=== PATIENT | male | born 1955 | race Caucasian/White ===

== ENCOUNTER 2023-03-30 12:10 | Inpatient (IN) | payer MEDICARE, MEDICAID, SELFPAY ==
[2023-03-30] VITALS (14 sets, daily range): BP systolic 118–167; BP diastolic 64–91; PULSE 85–121; RESP 18–39; TEMP 36.1–38.1; O2SAT 93–100
--- NOTE | ~2023-03-30 | XR_ITS ---
Portable chest x-ray Comparison: 04/01/2023 Clinical History: Aspiration Findings: NG tube in satisfactory position. Questionable minimal bibasilar haziness. No pleural effus ion or pneumothorax. Cardiomediastinal silhouette is stable. Bones and soft tissues are unremarkable . Impression: Questionable minimal bibasilar haziness, nonspecific. NG tube in place. Reviewed, dictated and finalized at location M. Impression: Questionable minimal bibasilar haziness, nonspecific. NG tube in place.
--- NOTE | ~2023-03-30 | XR_ITS ---
EXAM: XR abdomen/kub 1V DATE: 03/31/2023 20:07 HISTORY: Vomitting . COMPARISON: CT abdomen pelvis 03/30/2023. FINDINGS: Clear lung bases. Normal bowel gas pattern. No organomegaly. No abnormal abdominal calcifi cation. Lumbar degenerative disc disease. Mild right hip osteoarthritis. Partially visualized left hi p hardware. IMPRESSION: No radiographic evidence of obstruction or ileus. Reviewed, dictated and finalized at location K.
--- NOTE | ~2023-03-30 | XR_ITS ---
Portable chest x-ray Comparison: 03/31/2023 Clinical History: Aspiration Findings: There is mild haziness in the bilateral lung bases, nonspecific. No pneumothorax. Stable c alcified left apical granuloma. Cardiomediastinal silhouette is stable. Bones and soft tissues are u nremarkable. Impression: Nonspecific bibasilar haziness. Correlate for infection, pulmonary edema, atelectasis. Reviewed, dictated and finalized at location . Impression: Nonspecific bibasilar haziness. Correlate for infection, pulmonary edema, atele ctasis.
--- NOTE | ~2023-03-30 | XR_ITS ---
EXAM: XR hip LT 2V w AP pelvis DATE: 03/30/2023 14:42 HISTORY: fall, LIMITED ROM, PT NOT COHERENT . COMPARISON: CT abdomen pelvis 03/30/2023. FINDINGS: Normal mineralization. Uncomplicated left hip arthroplasty with a large femoral component extending to the distal femur. Stable lateral tilt of the acetabular component. Surgical clips over t he left inguinal canal. No fracture or dislocation. No lytic or blastic lesion. Lumbar degenerative d isc disease. Mild right hip osteoarthritis. Heterotopic ossification versus old bone fragment medial to the proximal femur. No erosion or periosteal change. Soft tissues within normal limits. IMPRESSION: No acute osseous finding in the pelvis or left hip. No radiographic evidence of hardware- related complication. Reviewed, dictated and finalized at location K. IMPRESSION: No acute osseous finding in the pelvis or left hip. No radiographic evidence of hardware-related complication.
--- NOTE | ~2023-03-30 | XR_ITS ---
EXAM: XR shoulder LT min 2V DATE: 03/30/2023 14:41 HISTORY: fall, UNKNOWN POINT OF PAIN, PT NOT COHERENT . COMPARISON: None available. FINDINGS: Normal mineralization. No fracture or dislocation. No lytic or blastic lesion. Moderate de generative change at the AC joint. Mild degenerative change at the glenohumeral joint. No erosion or periosteal change. Soft tissues within normal limits. IMPRESSION: No acute osseous finding in the left shoulder. Reviewed, dictated and finalized at location K.
--- NOTE | ~2023-03-30 | XR_ITS ---
Portable chest x-ray Comparison: 03/30/2023 Clinical History: Dyspnea Findings: Calcified left upper lobe granuloma noted. Lungs are otherwise clear. Cardiomediastinal s ilhouette is stable. Bones and soft tissues are unremarkable. Impression: No significant abnormality seen. Reviewed, dictated and finalized at [facility]. Impression: No significant abnormality seen.
--- NOTE | ~2023-03-30 | XR_ITS ---
EXAMINATION: XR chest 1V portable Exam Date/Time: 03/31/2023 19:55 CDT HISTORY: Vomitting with BIPAPO mask in place. Comparison: 03/31/2023 at 9:03 AM. RESULT: Lines, tubes, and devices: None. Lungs and pleura: Clear. Cardiomediastinal silhouette: Stable. Other: No acute osseous or upper abdominal finding. IMPRESSION: No acute cardiopulmonary process. Reviewed, dictated and finalized at location K.
--- NOTE | ~2023-03-30 | CT_ITS ---
EXAMINATION: CT abdomen pelvis wo con DATE: 03/30/2023 14:24 INDICATION: Urinary tract infection. Fell 2 nights ago. Not feeling well. TECHNIQUE: Computed tomography (CT) of the abdomen and pelvis was performed without intravenous contr ast. Automated exposure control and iterative reconstruction technique were employed. Exam dose: 997 .86 mGy-cm total exam DLP. COMPARISON: None. FINDINGS: The lung bases are clear. Normal heart size. No pericardial or pleural effusion. There are calcified hepatic and splenic granulomas consistent with old granulomatous disease. The liver, spleen, pancreas and adrenal glands are unremarkable on this limited noncontrast examinati on. Cholelithiasis. No pericholecystic fluid or fat stranding. No bile duct or pancreatic ductal dilatati on. No renal mass lesion is evident on this limited noncontrast examination. No urinary tract calculus or hydroureteronephrosis is detected. There is considerable streak artifact in the pelvic area from left hip replacement. The urinary bladd er appears essentially unremarkable. There is prominent prostate enlargement and calcification. There is atherosclerotic calcification but normal caliber of the abdominal aorta. No intraperitoneal or retroperitoneal or pelvic mass lesion or adenopathy or ascites is detected. There is a prominent amount of fecal material in the colon but no bowel obstruction, bowel wall thick ening, pneumatosis or intraperitoneal free air. Normal appendix. No evidence of appendicitis. Left hip replacement. No suspicious osteolytic or osteoblastic lesions are noted. IMPRESSION: Cholelithiasis Normal appendix Left hip replacement Reviewed, dictated and finalized at Location A. Reviewed, dictated and finalized at location L.
--- NOTE | ~2023-03-30 | CT_ITS ---
Clinical Indication: Dyspnea CT Scan of the Chest with Contrast: Technique: Contiguous sections were acquired throughout the chest after intravenous administration of 100 cc of Omnipaque 350. Dose reduction technique was used on this scan by utilizing automated expos ure control and iterative reconstruction technique. The dose-length product (DLP) was 466.17 mGy-cm. Findings: There is no evidence of any significant mediastinal, hilar or axillary lymphadenopathy. No central pu lmonary embolus seen. Motion artifact limits evaluation for small distal pulmonary emboli. There is n o evidence of aortic dissection or aneurysm. There is no evidence of pleural or pericardial effusion. The lungs are clear, aside from calcified left upper lobe granuloma. Images through the upper abdomen reveal no abnormalities. 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 Impression: No evidence of pulmonary embolus, aortic dissection, or aortic aneurysm. No significant pulmonary abnormality. Reviewed, dictated and finalized at [facility]. Impression: No evidence of pulmonary embolus, aortic dissection, or aortic aneurysm. No significant pulmonary abnormality.
--- NOTE | ~2023-03-30 | XR_ITS ---
EXAM: XR shoulder LT min 2V, XR humerus LT DATE: 03/31/2023 19:49 (accession [id number]), 03/31/2023 18:49 (accession [id number]) HISTORY: left shoulder pain . COMPARISON: None available. FINDINGS: Moderate degenerative change at the AC joint. No fracture or dislocation. Calcified left u pper lung granuloma. Mild degenerative change in the left elbow joint. IMPRESSION: No acute osseous finding in the left shoulder or humerus. Reviewed, dictated and finalized at location K. IMPRESSION: No acute osseous finding in the left shoulder or humerus.
--- NOTE | ~2023-03-30 | CT_ITS ---
EXAMINATION: CT chest abdomen pelvis wo con DATE: 04/02/2023 18:05 INDICATION: Bacteremia. Hypoxia. TECHNIQUE: Computed tomography (CT) of the chest, abdomen, and pelvis was performed without intraveno us contrast. Automated exposure control and iterative reconstruction technique were employed. The dos e-length product was 975.70 mGy-cm. COMPARISON: Chest CT 03/31/2023, CT abdomen and pelvis 03/30/2023 FINDINGS: CHEST CT: There is smooth septal thickening in the lungs, consistent mild pulmonary edema. There are small pleu ral effusions. Calcified left lung nodules and calcified left hilar and mediastinal lymph nodes are c onsistent with old granulomatous disease. There is a 4 mm nodule in right middle lobe, likely benign. The heart size is normal. No pericardial effusion. There is mild thoracic spondylosis. ABDOMEN/PELVIS CT: Calcifications in the liver and spleen are consistent with old granulomatous disease. There is a gall stone in the gallbladder, which is normal in size. The pancreas, adrenal glands, and kidneys are norm al. There is an umbilical hernia containing fat. There is trace pelvic ascites. There are bilateral i nguinal hernias containing fat. The bladder is decompressed by a Kc catheter. The prostate is mode rately enlarged. There are no dilated loops of bowel. The appendix is not visualized. There are no pa thologically enlarged lymph nodes. There is a left hip arthroplasty. There is moderate lumbar spondyl osis. IMPRESSION: 1. Mild pulmonary edema. 2. Small pleural effusions. Reviewed, dictated and finalized at location E.
--- NOTE | ~2023-03-30 | CT_ITS ---
EXAMINATION: CT cervical spine wo con DATE: 03/30/2023 14:22 INDICATION: fall TECHNIQUE: Computed tomography (CT) of the cervical spine was performed without intravenous contrast. Automated exposure control and iterative reconstruction technique were employed. The dose-length pro duct was 272.90 mGy-cm. COMPARISON: None. FINDINGS: Mild motion artifact. Vertebral Body Alignment: Intact. Craniocervical and atlantoaxial alignment: Moderate degenerative change. Alignment intact. Osseous structures/fracture: No evidence of a lytic or blastic process in the visualized spine. No e vidence of acute fracture. Cervical soft tissues: The paraspinal soft tissues planes are maintained. Degenerative changes: Degenerative changes, without severe neural foraminal or central canal narrowin g. IMPRESSION: No acute fracture or traumatic malalignment in the cervical spine. Reviewed, dictated and finalized at location K.
--- NOTE | ~2023-03-30 | XR_ITS ---
EXAMINATION: [id number]_[id number]_CR DATE: 04/02/2023 09:58 INDICATION: Nasogastric tube placement TECHNIQUE: Supine AP view of the abdomen and pelvis was obtained. COMPARISON: 03/31/2023 FINDINGS: Nasogastric tube tip in proximal side port in the body of the stomach. Moderate amount stool scattere d throughout the colon. No dilated gas-filled loops of bowel to suggest obstruction. Mild bibasilar a telectasis. Bipolar type left hip hemiarthroplasty. IMPRESSION: 1. Nasogastric tube in the stomach. Reviewed, dictated and finalized at location A.
--- NOTE | ~2023-03-30 | XR_ITS ---
EXAMINATION: [id number]_CR Exam Date/Time: 03/31/2023 22:05 CDT HISTORY: ng placement Comparison: X-ray chest and x-ray abdomen, same date. RESULT: Lines, tubes, and devices: NG tube, tip and side port project over the stomach. Lungs and pleura: Clear. Cardiothymic silhouette: Stable. Other: No acute osseous or upper abdominal finding. IMPRESSION: NG tube, in good position. Reviewed, dictated and finalized at location K. IMPRESSION: NG tube, in good position.
--- NOTE | ~2023-03-30 | CT_ITS ---
EXAMINATION: CT brain wo con DATE: 03/30/2023 14:22 INDICATION: fall . TECHNIQUE: Computed tomography (CT) of the head was performed without intravenous contrast. The mA wa s adjusted according to patient size. Iterative reconstruction technique was employed. The dose-lengt h product was 605.33 mGy-cm. COMPARISON: None. FINDINGS: No acute intracranial hemorrhage or extra-axial fluid collection. No hydrocephalus, mass, or herniation. No acute ischemic infarct. Unremarkable dural venous sinus attenuation. No acute osseous abnormality. The aerated spaces are clear. IMPRESSION: No acute intracranial process. Reviewed, dictated and finalized at location K.
--- NOTE | ~2023-03-30 | XR_ITS ---
EXAMINATION: XR chest 1V Exam Date/Time: 03/30/2023 14:20 CDT HISTORY: TRANSCIENT ALTERATION OF AWARENESS, FALL Comparison: 08/14/2014. RESULT: Lines, tubes, and devices: None. Lungs and pleura: Granulomatous calcifications, otherwise clear. Cardiomediastinal silhouette: Stable. Other: No acute osseous or upper abdominal finding. IMPRESSION: No acute cardiopulmonary process. Reviewed, dictated and finalized at location K.
--- NOTE | 2023-03-30 12:20 | ECG_ITS ---
Measurements Intervals [place] Rate: 100 P: 56 FL: 169 QRS: -17 QRSD: 115 T: 81 QT: 348 QTc: 450 Interpretive Statements SINUS TACHYCARDIA LOW QRS VOLTAGE IN PRECORDIAL LEADS [QRS DEFLECTION < 1.0 mV IN CHEST LEADS] SEPTAL MYOCARDIAL INFARCTION , OF INDETERMINATE AGE [40+ ms Q WAVE IN V1/V2] ABNORMAL ECG NO PREVIOUS ECG AVAILABLE FOR COMPARISON Electronically Signed On 03-30-2023 15:15:25 CDT by Satya Medina M.D.
[2023-03-30 12:45] LABS: Hematocrit 45.7 % (42.0-52.0); Hemoglobin 14.9 g/dL (14.0-18.0); Mean Corpuscular HGB Conc 32.6 g/dl (32-36); Mean Corpuscular Hemoglobin 28.7 pg (26-34); Mean Corpuscular Volume 87.9 fl (80-100); Mean Platelet Volume 10.6 fl (7.4-10.4); Platelet Count Result 212 k/mm3 (150-375); Red Cell Distribution Width 12.7 % (11.5-14.5); White Blood Count 15.7 K/mm3 (4.5-10.0)
[2023-03-30 12:59] LABS: Alanine Aminotransferase 39 U/L (6-50); Albumin Level 3.8 g/dL (3.5-5.1); Alkaline Phosphatase 235 U/L (38-126); Anion Gap 16 mmol/L (8-16); Aspartate Amino Transferase 26 U/L (17-59); Bilirubin,Total 1.8 mg/dL (0.2-1.3); Blood Urea Nitrogen 28 mg/dL (9-20); Calcium 9.1 mg/dL (8.4-10.2); Carbon Dioxide 27 mmol/L (22-30); Chloride 87 mmol/L (98-107); Estimated CRCL calculation 43 ml/min; Estimated Glomerular Filt Rate 47; Glucose 609 mg/dL (65-110); Potassium 3.7 mmol/L (3.4-5.0); Sodium 130 mmol/L (137-145)
[2023-03-30 13:03] LABS: Band Neutrophils Percent 11 % (0-6); Lymphocytes Absolute Manual 0.31 K/mm3 (1.1-4.5); Lymphocytes Percent Manual 2 % (18-44); Monocytes Absolute Manual 1.09 K/mm3 (0.1-0.90); Monocytes Percent Manual 7 % (3-9); Neutrophils Absolute Manual 14.28 K/mm3 (1.3-6.7); Neutrophils Percent Manual 80 % (46-73); Platelet Estimate Adequate (Adequate); Schistocytes None Seen (NORMAL); Total Cells Counted 100
[2023-03-30] MEDS: SODIUM CHLORIDE 0.9% IV 1,000 ML 999 ML IV CONT (13:03)
[2023-03-30 13:12] LABS: INR 1.4; Partial Thromboplastin Time 34.3 SECONDS (22.3-36.8)
[2023-03-30 13:12] LABS: Alveolar/Arterial O2 Gradient 39.9 mmHg; Base Excess ABG 3.2 mEq/l (+/-2.0); Carboxyhemoglobin 2.6 % THb (0-2.0); Fractional Inspired Oxygen 21 %; HCO3 ABG 29.5 mEq/l (22.0-26.0); Methemoglobin ABG 0.1 %THb (0-1.5); Oxygen Content ABG 17.5 %vol (16.0-22.0); PCO2 ABG 51.2 mmHg (35.0-45.0); PO2 FiO2 Ratio Arterial Blood 2.31 %; Reduced Hemoglobin 13.9 %THb (0-5.0); pH ABG 7.378 (7.350-7.450)
[2023-03-30 13:14] LABS: Oxyhemoglobin 83.4 % THb (90.0-100.0)
[2023-03-30 13:15] LABS: Device ROOM AIR; Modified Allen's Test Pass; Oxygen Saturation ABG 82.9 % (95.0-100.0); PO2 ABG 48.5 mmHg (80.0-100.0)
--- NOTE | 2023-03-30 13:20 | ED.FALL ---
HPI - Fall General Chief Complaint: Fall Stated Complaint: fall Time Seen by Provider: 03/30/23 12:44 Source: patient and family (daughter, ) Limitations: no limitations History of Present Illness HPI Narrative: Patient is a 67-year-old male present to the emergency department accompanied by family for a fall. Patient was found down on the ground at home by family at 3AM moaning and unsure how long he had been there but no more than a few hours. Patient was mildly confused and had to be helped up. Patient did not improve much throughout the day prompting evaluation. Yesterday the patient was complaining of feeling ill with generalized weakness and nausea. Patient admits to dysuria and mild dyspnea. Patient denies recent illness, hospitalization, abdominal pain, urinary incontinence, diarrhea, melena, headache, neck stiffness, leg swelling, rash, new or changed medications, alcohol use, illicit drug use, vomiting, cough, hematuria, numbness, focal weakness, sore throat, nasal congestion, vision changes, difficulty swallowing. Patient denies history of diabetes. Admits to COPD on breathing treatments every 6 hours at home. Denies sick contacts. Admits to pain in his left shoulder and left hip after the fall with pain worse when utilizing the left hip and left shoulder. Family states the patient had a recent bug bite to the left arm then he rubbed tobacco on as a home remedy that appeared to resolve the wound. Patient has had poor PO intake for the past day. Related Data Home Medications Medication Instructions Recorded Confirmed alprazolam 2 mg tablet (Xanax) 2 mg PO BID 03/30/23 03/30/23 Allergies Allergy/AdvReac Type Severity Reaction Status Date / Time nkda Allergy Mild Uncoded 10/14/10 22:41 Review of Systems Review of Systems: A 10 system review of systems was completed on the patient and is negative except for what is stated in the HPI. Nursing and ancillary documentation was reviewed. [facility] Past Medical History Medical History (Updated 03/31/23 @ 15:13 by Keo Saldana APRN) Tobacco use disorder, continuous Family History Family History Other Alcohol abuse by father Social History Social History Smoking packs per day: 1 Smoking cigarettes per day: 20.0 Smoking status: Current every day smoker Tobacco type: cigarettes Alcohol intake: never Lack of Transportation: No Lack of Food: Never True Current Housing: I Have Housing Concerned About Future Housing: No Difficulty Paying Gas/Electric Bills: No Difficulty Paying for Meds: No Currently Unemployed: No Education: High School Diploma/GED Difficulty w/ Childcare or Family Care: No Spiritual care concerns: No Comments At time of signature, I have reviewed and agree with nursing past medical, surgical, social and family history unless otherwise noted. Please see the nursing chart for further information. There is no relevant family history pertinent to the presenting complaint. Exam Narrative: CONST: Mild acute distress. Tachypneic. Following commands. HENMT: Head is normocephalic and atraumatic. Dry mucous membranes. No posterior oropharynx erythema. EYES: No conjunctival icterus, injection, or pallor. PERRL. No gaze deviation or nystagmus. NECK: No meningeal signs. Neck is supple. RESP: Able to speak in full sentences. Tachypneic. No accessory muscle usage for ventilation. Scant end expiratory wheeze diffusely with a prolonged expiratory phase. Scant rhonchi diffusely. No rales. CARDIO: Tachycardic rate. Regular rhythm. 2+ DP and radial pulses bilaterally. No JVD. No murmur. GI: Nondistended. No tenderness to palpation. Soft. : No CVA tenderness to palpation. SKIN: No rashes. Small well healed approximately 0.5 cm in diameter scab to the left posterior upper arm without crepitus or erythema or tenderness to palp
[2023-03-30 13:21] LABS: Appearance Urine Clear (Clear); Bacteria Urine 4+ /hpf; Bilirubin Urine Negative (Negative); Blood Urine 1+ (Negative); Color Urine Yellow (Yellow); Glucose Urine UA 3+ mg/dL (Negative); Ketones Urine Negative (Negative); Leukocyte Esterase Ur Trace LEU/UL (Negative); Nitrate Urine Positive (Negative); Non Pathogenic Casts 0-2; Protein Urine Negative (Negative); Specific Grav Ur 1.028 (1.001-1.035); Squamous Epithelial Cell Urine None seen /hpf (Few); WBC Urine 21-50 /hpf; pH Urine 5.5 (5.0-9.0)
[2023-03-30 13:23] LABS: Add Urine Microscopic? YES
[2023-03-30 13:33] LABS: Influenza A QL RT-PCR Negative (Negative); Influenza B QL RT-PCR Negative (Negative); SARS-CoV-2 RNA PCR Negative (Negative)
[2023-03-30 14:12] LABS: Lactic Acid Reflex 3.2 mmol/L (0.7-2.0)
[2023-03-30 14:16] LABS: D Dimer 2.73 ug/mL (<0.48)
[2023-03-30 14:23] LABS: Acetaminophen < 10 ug/mL (10-30); Ethanol < 10 mg/dL (<10); Salicylate 1.1 mg/dL (2-20)
[2023-03-30] MEDS: ACETAMINOPHEN 500 MG TABLET 1000 MG PO (14:40)
[2023-03-30] MEDS: ALBUTEROL SULFATE NEB 2.5 MG/3 ML INH INHALATION (14:40)
[2023-03-30] MEDS: IPRATROPIUM BR 0.02% INH SOLN 0.5 MG/2.5 ML VIAL INHALATION (14:40)
[2023-03-30 14:42] LABS: Troponin I < 0.012 ng/mL (0.000-0.034)
[2023-03-30 14:54] LABS: Lipase 18 U/L (23-300)
[2023-03-30 15:21] LABS: CRP 41.5 mg/dL (<1.0)
[2023-03-30 15:39] LABS: Creatine Kinase 44 U/L (55-170)
[2023-03-30 15:47] LABS: Thyroid Stimulating Hormone Reflex 0.834 uIU/mL (0.465-4.68)
[2023-03-30 16:59] LABS: Reflex Lactic Acid Yes or No Add Lactic
[2023-03-30 17:05] LABS: Glucose Point of Care 403 mg/dl (65-105)
[2023-03-30 18:07] LABS: Lactic Acid 1.5 mmol/L (0.7-2.0)
--- NOTE | 2023-03-30 19:34 | ADMGEN ---
This patient, Alex Amezquita, was admitted to IMU Room 211-01 on 03/30/23 at 1850. Patient/family oriented to hospital policies and general routines including ID bracelet, bed and alarms, visiting hours, pain management, procedures, bathroom and other care routines, personal items, smoking policy, room service/diet, and visiting hours. Information on how to activate the Rapid Response Team has been discussed. Patient/Family are encouraged to report perceived risks to care and to ask questions if they do not understand what they are told or what they should do.
[2023-03-30] MEDS: HALOPERIDOL LACTATE 5 MG/ML VIAL 2.5 MG IM (20:25)
[2023-03-30] MEDS: LACTATED RINGERS 1,000 ML 125 ML IV CONT (21:08)
--- NOTE | 2023-03-30 22:44 | PM.IMHP ---
H&P: HPI History of Present Illness Date/Time: 03/30/23 22:44 Chief Complaint: Patient was brought to ER for evaluation due to confusion and difficulty walking Narrative: Our patient is a pleasantly confused gentleman who was not acting his usual self at home, was tired and fatigued and yelling at his family members. He continue to eat a lot of sugary products for the last couple of days. He is a chronic smoker and smokes on a regular basis. Family got concerned and brought him to the ER for evaluation. Workup was done which showed UTI and dehydration with a glucose level of 609!. His lactic acid level was also elevated. Patient was diagnosed with sepsis with UTI and was treated with the aggressive IV hydration in the ER and IV antibiotics. I saw and evaluated the patient on the floor and he was still confused, combative and trying to get out of bed. I ordered Haldol x1 dose IM to calm him down. I spoke with the at the bedside in detail. He is being admitted for IV hydration, IV antibiotics and medical management. Review of Systems Review of Systems: Unable to obtain review of system as patient is pleasantly confused and not cooperative ROS unobtainable: Yes unobtainable due to mental status PMFSH Past Medical History Medical History (Updated 03/30/23 @ 23:00 by Chung Hirsch MD) Tobacco use disorder, continuous Family History Family History Other Alcohol abuse by father Social History Social History Smoking packs per day: 1 Smoking cigarettes per day: 20.0 Smoking status: Current every day smoker Tobacco type: cigarettes Alcohol intake: never Lack of Transportation: No Lack of Food: Never True Current Housing: I Have Housing Concerned About Future Housing: No Difficulty Paying Gas/Electric Bills: No Difficulty Paying for Meds: No Currently Unemployed: No Education: High School Diploma/GED Difficulty w/ Childcare or Family Care: No Spiritual care concerns: No Meds Home Medications and Allergies Home Medications Medication Instructions Recorded Confirmed Type alprazolam 2 mg tablet (Xanax) 2 mg PO BID 03/30/23 03/30/23 History Allergies Allergy/AdvReac Type Severity Reaction Status Date / Time nkda Allergy Mild Uncoded 10/14/10 22:41 Vital Signs Vital Signs - 24 hr 03/30/23 12:13 03/30/23 14:41 03/30/23 15:05 Temperature 36.1 C L Pulse Rate 102 H 115 H 121 H Respiratory Rate 18 26 H 28 H Blood Pressure 128/77 Pulse Oximetry 93 Oxygen Delivery Room Air 03/30/23 13:01 03/30/23 13:47 03/30/23 15:00 Temperature Pulse Rate 103 H 102 H 119 H Respiratory Rate 28 H 32 H 31 H Blood Pressure 127/78 158/83 H 167/91 H Pulse Oximetry 100 98 100 Oxygen Delivery 03/30/23 15:03 03/30/23 16:08 03/30/23 16:45 Temperature Pulse Rate 121 H 117 H 115 H Respiratory Rate 39 H 36 H 36 H Blood Pressure 165/90 H 141/75 H 145/78 H Pulse Oximetry 100 100 96 Oxygen Delivery 03/30/23 17:57 03/30/23 19:25 03/30/23 20:00 Temperature 38.1 C H Pulse Rate 114 H 113 H 113 H Respiratory Rate 24 H 22 H 22 H Blood Pressure 118/64 119/71 Pulse Oximetry 100 98 98 Oxygen Delivery Room Air Exam Narrative: PHYSICAL EXAMINATION: Vital signs: Please see the chart. General physical exam: Patient is confused, combative and trying to get out of bed Head/eyes: Atraumatic, EOMI, PERRLA. ENT: +dry mucous membranes, nasal passages clear. Neck: Supple, full range of motion, trachea midline. CVS: S1 + S2 + 0, regular rate and rhythm, no murmurs Respiratory: Bilaterally fair air entry in both lung tom, mild B/L crackles, symmetric chest expansion, no distress Abdomen: Soft, non-tender, bowel sounds +ve, no organomegaly Extremities: No clubbing, no cyanosis, no edema, no calf tenderness Musculoskeletal: Moves all, adequate range of motion,
[2023-03-30 23:11] LABS: Glucose Point of Care 236 mg/dl (65-105)
[2023-03-31] VITALS (23 sets, daily range): BP systolic 112–138; BP diastolic 63–75; PULSE 85–127; RESP 20–45; TEMP 35.9–36.5; O2SAT 93–100
--- NOTE | 2023-03-31 | ECHO_ITS ---
Patient Info Name: Alex Amezquita Age: 67 years : 1955 Gender: Male Ht: 68 in Wt: 167 lbs BSA: 1.92 m2 HR: 78 bpm BP: 134 / 71 mmHg Heart Rhythm: Tachycardia Technical Quality: Fair Exam Date: 03/31/2023 11:55 AM Exam Location: [facility] Pulmonary Exam Room: [facility] Patient Status: Inpatient Admit Date: 03/30/2023 Staff Ordering Physician: Keo Saldana APRN Webbing Supervisor: Hope Carrasco RDCS Attending Provider: Sg Reese MD Referring Physician: Les REIS; Exam Type: CA echo doppler color flow Study Info Indications - sepsis dyspnea Complete two-dimensional, color flow and Doppler transthoracic echocardiogram is performed. Summary 1. Complete two-dimensional, color flow and Doppler transthoracic echocardiogram is performed. 2. Left ventricular chamber dimension is normal. 3. Left ventricular systolic function is normal, estimated at 55-60%. 4. There is no increased left ventricular wall thickness. 5. The left ventricular diastolic function is grade I diastolic dysfunction. 6. Left atrial chamber dimension is mildly enlarged. 7. There is mild tricuspid valve regurgitation. 8. Mild pulmonary hypertension, estimated pulmonary arterial systolic pressure is 36 mmHg. 9. There is mild pulmonic regurgitation. Left Ventricle Left ventricular chamber dimension is normal. Left ventricular systolic function is normal, estimated at 55-60%. There is no increased left ventricular wall thickness. The left ventricular diastolic function is grade I diastolic dysfunction. Right Ventricle Right ventricular chamber dimension is normal. Right ventricular systolic function is normal. Left Atria Left atrial chamber dimension is mildly enlarged. Right Atria Right atrial chamber dimension is normal. Atrial Septum Intact interatrial septum visualized by color flow imaging. Aortic Valve The aortic valve is trileaflet. There is mild aortic valve sclerosis. There is no aortic valve stenosis. There is trace aortic valve regurgitation. Pulmonic Valve The pulmonic valve is normal. There is no pulmonic valve stenosis. There is mild pulmonic regurgitation. Mitral Valve The mitral valve has normal leaflets. There is no mitral valve stenosis. There is trace mitral valve regurgitation. Tricuspid Valve The tricuspid valve leaflets are normal. There is no significant tricuspid valve stenosis. There is mild tricuspid valve regurgitation. Mild pulmonary hypertension, estimated pulmonary arterial systolic pressure is 36 mmHg. Pericardium/Pleural The pericardium appears normal. There is no pericardial effusion. Inferior Vena Cava Dilated inferior vena cava with >50% collapse upon inspiration consistent with elevated right atrial pressure, 10 mmHg. Aorta The aortic root size at the sinus of Valsalva is normal. Left Ventricular Outflow Tract Name Value Normal LVOT 2D LVOT Diameter 2.1 cm LVOT Doppler LVOT Peak Gradient 5 mmHg LVOT Mean Gradient 3 mmHg LVOT VTI 17 cm LVOT VTI/AV VTI Ratio 1.0 LVOT Stroke Volume 56 ml
[2023-03-31] MEDS: NICOTINE (*PBKC) 21 MG PATCH 1 PATCH TRANSDERM ×2 (03:10→08:35)
[2023-03-31] MEDS: FUROSEMIDE INJ 40 MG/4 ML VIAL 20 MG IV PUSH (04:14)
[2023-03-31 05:07] LABS: Anion Gap 1 mmol/L (8-16); Blood Urea Nitrogen 24 mg/dL (9-20); Calcium 7.9 mg/dL (8.4-10.2); Carbon Dioxide 29 mmol/L (22-30); Chloride 98 mmol/L (98-107); Estimated CRCL calculation 69 ml/min; Estimated Glomerular Filt Rate > 60; Glucose 181 mg/dL (65-110); Phosphorus 2.2 mg/dL (2.5-4.5); Potassium 3.7 mmol/L (3.4-5.0); Sodium 128 mmol/L (137-145)
[2023-03-31 05:30] LABS: Hemoglobin A1C 10.6 % (<5.7)
[2023-03-31] MEDS: ALPRAZolam (*CRX) 0.5 MG TABLET 2 MG PO (06:27)
[2023-03-31 07:59] LABS: Glucose Point of Care 205 mg/dl (65-105)
[2023-03-31 08:48] LABS: Glucose Point of Care 169 mg/dl (65-105)
[2023-03-31 09:24] LABS: Alveolar/Arterial O2 Gradient 119.8 mmHg; Base Excess ABG 2.9 mEq/l (+/-2.0); Fractional Inspired Oxygen 30 %; HCO3 ABG 26.9 mEq/l (22.0-26.0); Oxygen Content ABG 15.9 %vol (16.0-22.0); PCO2 ABG 39.3 mmHg (35.0-45.0); Total Hemoglobin 13.1 g/dL (12.0-18.0); pH ABG 7.454 (7.350-7.450)
[2023-03-31 09:30] LABS: PO2 ABG 47.9 mmHg (80.0-100.0)
[2023-03-31 09:31] LABS: Oxygen Saturation ABG 85.7 % (95.0-100.0); Oxyhemoglobin 86.6 % THb (90.0-100.0)
[2023-03-31 09:32] LABS: Site Drawn LEFT RADIAL
[2023-03-31 09:33] LABS: Device NASAL CANNULA; Liters per Minute 2.5 LPM; Modified Allen's Test Pass
--- NOTE | 2023-03-31 09:35 | PM.IMPN ---
Progress Note: A&P Assessment and Plan (1) Sepsis: Code(s): A41.9 - Sepsis, unspecified organism Status: Acute Assessment and Plan: Urinary tract infection identified as well as Gram-positive cocci in chains in 2 of 2 blood cultures. Awaiting species and sensitivity. (2) Altered mental status: Code(s): R41.82 - Altered mental status, unspecified Status: Acute Assessment and Plan: Patient is significantly encephalopathic has been combative with staff and yelling at family before coming to the emergency department. Uncertain if this is substance related or psychiatric related or related to sepsis. (3) Combative behavior: Code(s): R46.89 - Other symptoms and signs involving appearance and behavior Status: Acute Assessment and Plan: Patient received Haldol for combative behavior now appears to be significantly encephalopathic. (4) JG (acute kidney injury): Code(s): N17.9 - Acute kidney failure, unspecified Status: Acute Assessment and Plan: Initial creatinine 1.5 has improved to 0.9 with IV fluids. (5) Hyponatremia: Code(s): E87.1 - Hypo-osmolality and hyponatremia Status: Acute Assessment and Plan: Sodium is down to 128, initial level 130. No prior records. (6) UTI (urinary tract infection): Code(s): N39.0 - Urinary tract infection, site not specified Status: Acute Assessment and Plan: Patient on ceftriaxone, dose increased to 2g Q12h. (7) Bacteremia: Code(s): R78.81 - Bacteremia Status: Acute Assessment and Plan: Ceftriaxone 2 g every 12 hours and vancomycin with goals higher end of trough. (8) Tobacco use disorder, continuous: Code(s): F17.209 - Nicotine dependence, unspecified, with unspecified nicotine-induced disorders Status: Acute Assessment and Plan: Nicotine patch applied. Plan Patient on BiPAP Mine Laborer has evaluated patient Hold Xanax Sitter at bedside Fluids infusing Will consult nephrology for hyponatremia Antibiotic coverage escalated upon identification of Gram-positive cocci in the blood Awaiting further species identification and sensitivities Awaiting urine culture Kc catheter in place Diet: Heart healthy if awake otherwise NPO VTE prophylaxis: SCDs and Lovenox Medication reconciliation: Complete Time Spent With Patient Time with patient: Greater than 35 minutes Subjective Date/time seen: 03/31/23 08:40 Interval history: Chief Complaint: Patient was brought to ER for evaluation due to confusion and difficulty walking Narrative: Our patient is a pleasantly confused gentleman who was not acting his usual self at home, was tired and fatigued and yelling at his family members.? He continue to eat a lot of sugary products for the last couple of days.? He is a chronic smoker and smokes on a regular basis.? Family got concerned and brought him to the ER for evaluation.? Workup was done which showed UTI and dehydration with a glucose level of 609!.? His lactic acid level was also elevated.? Patient was diagnosed with sepsis with UTI and was treated with the aggressive IV hydration in the ER and IV antibiotics. I saw and evaluated the patient on the floor and he was still confused, combative and trying to get out of bed.? I ordered Haldol x1 dose IM to calm him down.? I spoke with the at the bedside in detail. He is being admitted for IV hydration, IV antibiotics and medical management. ? 03/31: Patient is still altered level of consciousness possibly due to Haldol or encephalopathy. Noted tachypnea with respiratory rate around 40. Patient had adventitious lung sounds. Concerned he may be an aspiration risk and discussed case with ICU attending Dr. Ralph who evaluated patient and thought he could stay in IMU, start steroids and bronchodilators. Patient unable to participate in HPI/ROS. Review of Systems Review of Systems: ROS unobtainable: Yes
[2023-03-31 09:47] LABS: Ammonia 11 umol/L (9-30)
[2023-03-31 09:53] LABS: Procalcitonin 6.3 ng/mL
[2023-03-31] MEDS: IPRATROPIUM BR 0.02% INH SOLN 0.5 MG/2.5 ML VIAL INHALATION ×3 (10:16→19:50)
[2023-03-31] MEDS: ALBUTEROL SULFATE NEB 2.5 MG/3 ML INH INHALATION ×3 (10:16→19:50)
[2023-03-31] MEDS: methylPREDNISolone SOD SUCC 125 MG VIAL IV PUSH (10:28)
[2023-03-31 10:43] LABS: Thyroid Stimulating Hormone Reflex 0.236 uIU/mL (0.465-4.68)
[2023-03-31 11:45] LABS: Glucose Point of Care 194 mg/dl (65-105)
[2023-03-31 11:46] LABS: Free T4 Free Thyroxine Reflex 1.85 ng/dL (0.78-2.19)
[2023-03-31] MEDS: cefTRIAXone 2 GM/NS 100 ML 2 GM/100 ML BAG IVPB ×2 (12:43→20:42)
[2023-03-31 12:59] LABS: Total Triiodothyronine (T3) 0.67 NG/ML (0.97-1.69)
[2023-03-31 13:26] LABS: Alveolar/Arterial O2 Gradient 151.4 mmHg; Fractional Inspired Oxygen 40 %; HCO3 ABG 29.5 mEq/l (22.0-26.0); Oxygen Content ABG 18.6 %vol (16.0-22.0); Oxygen Saturation ABG 96.8 % (95.0-100.0); Oxyhemoglobin 96.2 % THb (90.0-100.0); PCO2 ABG 42.8 mmHg (35.0-45.0); PO2 ABG 84.6 mmHg (80.0-100.0); PO2 FiO2 Ratio Arterial Blood 2.12 %; Total Hemoglobin 13.7 g/dL (12.0-18.0); pH ABG 7.456 (7.350-7.450)
[2023-03-31 13:29] LABS: Modified Allen's Test Pass; Site Drawn RIGHT RADIAL
[2023-03-31 13:30] LABS: Device NON-INVASIVE VENT
[2023-03-31 13:33] LABS: Non-Invasive Expiratory Pressure 7 CMH2O; Non-Invasive Inspiratory Pressure 14 CMH2O; Non-Invasive Vent Rate 18 /MIN
[2023-03-31] MEDS: SODIUM CHLORIDE 0.9% IV 1,000 ML 125 ML IV CONT (15:09)
--- NOTE | 2023-03-31 17:42 | PC.NURSE ---
On 03/31/23, the student, Claudia LYNN [facility], provided care and completed [facility] documentation on this patient. I have reviewed the student's documentation and agree with the findings.
[2023-03-31 19:42] LABS: Creatinine Urine 70.9 mg/dL; Total Protein Urine Random 39 mg/dL; Ur Ttl Prot Creatinine Ratio 0.55 mg/mg (0-0.20); Urea Random Urine 858 MG/DL
[2023-03-31 19:53] LABS: Sodium Urine Random 13 meq/L
[2023-03-31] MEDS: ONDANSETRON INJ 4 MG/2 ML VIAL IV PUSH (20:06)
[2023-03-31] MEDS: KETOROLAC 15 MG/ML VIAL (*BKC) IV PUSH (20:56)
[2023-03-31] MEDS: OLANZapine 5 MG, WATER, STERILE FOR INJECTION 2.1 ML IM (23:01)
[2023-04-01] VITALS (31 sets, daily range): BP systolic 114–148; BP diastolic 61–87; PULSE 76–136; RESP 22–41; TEMP 36.4–37.4; O2SAT 91–100
[2023-04-01] MEDS: PROMETHAZINE HCL 25 MG/ML AMPUL 12.5 MG IM (00:32)
[2023-04-01] MEDS: SODIUM CHLORIDE 0.9% IV 1,000 ML 125 ML IV CONT ×4 (00:37→20:57)
[2023-04-01] MEDS: ALBUTEROL SULFATE NEB 2.5 MG/3 ML INH INHALATION ×6 (00:59→20:00)
[2023-04-01] MEDS: IPRATROPIUM BR 0.02% INH SOLN 0.5 MG/2.5 ML VIAL INHALATION ×6 (00:59→20:00)
[2023-04-01] MEDS: LORazepam INJ (*CRX) 2 MG/ML VIAL 0.5 MG IV PUSH ×4 (01:30→20:21)
[2023-04-01 05:57] LABS: Hematocrit 41.3 % (42.0-52.0); Hemoglobin 13.5 g/dL (14.0-18.0); Mean Corpuscular HGB Conc 32.7 g/dl (32-36); Mean Corpuscular Hemoglobin 28.2 pg (26-34); Mean Corpuscular Volume 86.4 fl (80-100); Mean Platelet Volume 10.5 fl (7.4-10.4); Platelet Count Result 247 k/mm3 (150-375); Red Blood Count 4.78 M/mm3 (4.6-6.20); Red Cell Distribution Width 12.9 % (11.5-14.5); White Blood Count 16.4 K/mm3 (4.5-10.0)
[2023-04-01 06:17] LABS: Band Neutrophils Percent 6 % (0-6); Lymphocytes Absolute Manual 0.82 K/mm3 (1.1-4.5); Lymphocytes Percent Manual 5 % (18-44); Monocytes Absolute Manual 0.32 K/mm3 (0.1-0.90); Monocytes Percent Manual 2 % (3-9); Neutrophils Absolute Manual 15.25 K/mm3 (1.3-6.7); Neutrophils Percent Manual 87 % (46-73); Platelet Estimate Adequate (Adequate); Schistocytes None Seen (NORMAL); Total Cells Counted 100
[2023-04-01 06:23] LABS: Anion Gap 9 mmol/L (8-16); Blood Urea Nitrogen 40 mg/dL (9-20); Calcium 8.2 mg/dL (8.4-10.2); Carbon Dioxide 28 mmol/L (22-30); Chloride 98 mmol/L (98-107); Creatine Kinase 124 U/L (55-170); Estimated CRCL calculation 88 ml/min; Estimated Glomerular Filt Rate > 60; Glucose 252 mg/dL (65-110); Magnesium 2.4 mg/dL (1.6-2.3); Phosphorus 2.6 mg/dL (2.5-4.5); Potassium 3.9 mmol/L (3.4-5.0); Sodium 135 mmol/L (137-145)
[2023-04-01 06:39] LABS: Procalcitonin 5.1 ng/mL
[2023-04-01 07:13] LABS: CRP 41.9 mg/dL (<1.0)
--- NOTE | 2023-04-01 09:09 | ECG_ITS ---
Measurements Intervals [place] Rate: 110 P: 64 VA: 168 QRS: -16 QRSD: 114 T: 76 QT: 335 QTc: 453 Interpretive Statements SINUS TACHYCARDIA LOW QRS VOLTAGE BORDERLINE ECG COMPARED TO ECG 03/30/2023 12:29:32 THERE IS SOME BASELINE MOTION ARTIFACT OTHERWISE NO SUBSTANTIAL DIFFERENCE Electronically Signed On 04-01-2023 14:34:09 CDT by Heath Croinn M.D.
[2023-04-01] MEDS: ENOXAPARIN 40 MG/0.4 ML SYRINGE SUB-Q (09:20)
[2023-04-01] MEDS: NICOTINE (*PBKC) 21 MG PATCH 1 PATCH TRANSDERM (09:21)
[2023-04-01] MEDS: cefTRIAXone 2 GM/NS 100 ML 2 GM/100 ML BAG IVPB (09:21)
--- NOTE | 2023-04-01 09:34 | PM.IMPN ---
Progress Note: A&P Assessment and Plan (1) Sepsis: Code(s): A41.9 - Sepsis, unspecified organism Status: Acute Assessment and Plan: Urinary tract infection identified as well as Gram-positive cocci in clusters in 2 of 2 blood cultures. Awaiting species and sensitivity. 04/01: Staph aureus identified in urine, likely the same in blood, susceptibilities to follow up (2) Altered mental status: Code(s): R41.82 - Altered mental status, unspecified Status: Acute Assessment and Plan: Patient is significantly encephalopathic has been combative with staff and yelling at family when decision to admit from the emergency department. Uncertain if this is substance related or psychiatric related or related to sepsis. 04/01: Patient may be exhibiting withdrawal symptoms from chronic use of benzodiazepines. (3) Combative behavior: Code(s): R46.89 - Other symptoms and signs involving appearance and behavior Status: Acute Assessment and Plan: Patient received Haldol for combative behavior now appears to be significantly encephalopathic. 04/01: Overnight patient received Zyprexa for combative behavior. (4) JG (acute kidney injury): Code(s): N17.9 - Acute kidney failure, unspecified Status: Acute Assessment and Plan: Initial creatinine 1.5 has improved to 0.9 with IV fluids. 04/01: BUN 40, Cr 0.7 (5) Hyponatremia: Code(s): E87.1 - Hypo-osmolality and hyponatremia Status: Acute Assessment and Plan: Sodium is down to 128, initial level 130. No prior records. 04/01: Sodium 135, improved due to treatment of underlying infection (6) UTI (urinary tract infection): Code(s): N39.0 - Urinary tract infection, site not specified Status: Acute Assessment and Plan: Patient on ceftriaxone, dose increased to 2g Q12h and patient on vancomycin IV 04/01: Staph aureus on culture, sensitivities pending (7) Bacteremia: Code(s): R78.81 - Bacteremia Status: Acute Assessment and Plan: Ceftriaxone 2 g every 12 hours and vancomycin with goals higher end of trough. (8) Tobacco use disorder, continuous: Code(s): F17.209 - Nicotine dependence, unspecified, with unspecified nicotine-induced disorders Status: Acute Assessment and Plan: Nicotine patch applied. Plan Patient possibly exhibiting withdrawal symptoms from Xanax. Ativan 0.5 mg IV q.6 p.r.n. for agitation or withdrawal symptoms. Hospitalist attending, Dr. Reese, evaluated patient in conjunction with my care Repeat chest x-ray due to likely aspiration overnight Soft wrist restraints to keep patient from pulling medical devices IV Fluids infusing Hyponatremia improving with treatment of underlying infection Antibiotic coverage escalated upon identification of Gram-positive cocci in the blood Awaiting further species identification and sensitivities Staph aureus in urine culture, awaiting sensitivities Repeat blood cultures drawn today Kc catheter in place Diet: NPO VTE prophylaxis: SCDs and Lovenox Medication reconciliation: Complete Time Spent With Patient Time with patient: Greater than 35 minutes Subjective Date/time seen: 04/01/23 09:34 Interval history: Chief Complaint: Patient was brought to ER for evaluation due to confusion and difficulty walking Narrative: Our patient is a pleasantly confused gentleman who was not acting his usual self at home, was tired and fatigued and yelling at his family members.? He continue to eat a lot of sugary products for the last couple of days.? He is a chronic smoker and smokes on a regular basis.? Family got concerned and brought him to the ER for evaluation.? Workup was done which showed UTI and dehydration with a glucose level of 609!.? His lactic acid level was also elevated.? Patient was diagnosed with sepsis with UTI and was treated with the aggressive IV hydration in the ER and IV antibiotics. I saw and evaluated
[2023-04-01 09:37] LABS: Lipase 19 U/L (23-300)
[2023-04-01 10:44] LABS: Troponin I < 0.012 ng/mL (0.000-0.034)
[2023-04-01] MEDS: PANTOPRAZOLE SODIUM IV 40 MG VIAL IV PUSH ×2 (10:47→20:30)
[2023-04-01] MEDS: methylPREDNISolone SOD SUCC 40 MG VIAL IV PUSH ×3 (11:29→23:16)
[2023-04-01] MEDS: METOCLOPRAMIDE HCL INJ 10 MG/2 ML VIAL IV PUSH ×3 (11:29→23:16)
[2023-04-01] MEDS: INSULIN ASPART (*BKC) 100 UNITS/ML SUB-Q ×2 (11:36→18:42)
[2023-04-01 11:40] LABS: Glucose Point of Care 222 mg/dl (65-105)
--- NOTE | 2023-04-01 12:35 | PC.NURSE ---
Pt family is refusing to keep pt NPO at this time this nurse explained to them that it is not safe to give him anything due to leathery, pt will not stay awake with out simulation of any kind and over night N/V the daughter refused to comply at this time, this nurse called Ben [employer] to assist with explaining the order and the why the need is to keep pt NPO and the daughter voiced she will give him what every she wants to at this time this nurse will make floor staff aware of the order to not give pt anything here and if the family so wishes to do so they have to bring it in from outside per [employer] order.
--- NOTE | 2023-04-01 13:06 | PC.NURSE ---
This nurse spoke to Ghada is the next of kin in regards to the NPO status and she is agreeable to what was explained and doesnt want his life placed at risk and will speak to the daughter
[2023-04-01] MEDS: KETOROLAC 15 MG/ML VIAL (*BKC) IV PUSH (14:57)
[2023-04-01 17:32] LABS: Glucose Point of Care 251 mg/dl (65-105)
--- NOTE | 2023-04-01 18:55 | PC.NURSE ---
This nurse cont to explain to family members and Ghada pt is NPO and they cont to ask if he can have something to drink due to pt is asking for it this nurse cont to educate on risk.
[2023-04-01 20:12] LABS: Glucose Point of Care 228 mg/dl (65-105)
[2023-04-01 22:13] LABS: Vancomycin Trough 8.2 ug/mL (10.0-20.0)
[2023-04-01] MEDS: OLANZapine 10 MG INJ VIAL 5 MG IM (23:16)
[2023-04-02] VITALS (29 sets, daily range): BP systolic 116–181; BP diastolic 74–101; PULSE 77–102; RESP 12–32; TEMP 36.4–37.2; O2SAT 94–100; BMI 24.6
[2023-04-02] MEDS: IPRATROPIUM BR 0.02% INH SOLN 0.5 MG/2.5 ML VIAL INHALATION ×5 (00:05→15:54)
[2023-04-02] MEDS: ALBUTEROL SULFATE NEB 2.5 MG/3 ML INH INHALATION ×5 (00:05→15:54)
[2023-04-02 01:31] LABS: Glucose Point of Care 327 mg/dl (65-105)
[2023-04-02] MEDS: INSULIN ASPART (*BKC) 100 UNITS/ML SUB-Q ×6 (01:46→23:23)
[2023-04-02 05:52] LABS: Basophils Percent Auto 0.2 % (0.2-1.2); Hematocrit 35.8 % (42.0-52.0); Hemoglobin 11.6 g/dL (14.0-18.0); Immature Granulocyte Absolute 0.07 K/mm3 (0.00-0.031); Immature Granulocyte Percent A 0.6 % (0-0.5); Lymphocytes Absolute Auto 0.79 K/mm3 (0.9-3.2); Lymphocytes Percent Auto 6.2 % (18.3-44.2); Mean Corpuscular HGB Conc 32.4 g/dl (32-36); Mean Corpuscular Hemoglobin 28.2 pg (26-34); Mean Corpuscular Volume 87.1 fl (80-100); Mean Platelet Volume 10.9 fl (7.4-10.4); Monocytes Absolute Auto 0.5 K/mm3 (0.1-0.6); Monocytes Percent Auto 4.1 % (2.6-8.5); Neutrophils Absolute Auto 11.2 K/mm3 (1.3-6.7); Neutrophils Percent Auto 88.9 % (45.5-73.1); Platelet Count Result 229 k/mm3 (150-375); Red Blood Count 4.11 M/mm3 (4.6-6.20); Red Cell Distribution Width 13.1 % (11.5-14.5); White Blood Count 12.7 K/mm3 (4.5-10.0)
[2023-04-02 06:04] LABS: Magnesium 2.5 mg/dL (1.6-2.3)
[2023-04-02 06:05] LABS: Anion Gap 5 mmol/L (8-16); Blood Urea Nitrogen 42 mg/dL (9-20); Calcium 7.8 mg/dL (8.4-10.2); Carbon Dioxide 30 mmol/L (22-30); Chloride 104 mmol/L (98-107); Estimated CRCL calculation 78 ml/min; Estimated Glomerular Filt Rate > 60; Glucose 232 mg/dL (65-110); Phosphorus 2.8 mg/dL (2.5-4.5); Potassium 3.1 mmol/L (3.4-5.0); Sodium 139 mmol/L (137-145)
[2023-04-02 06:16] LABS: Procalcitonin 2.5 ng/mL
[2023-04-02 06:18] LABS: CRP 18.5 mg/dL (<1.0)
[2023-04-02] MEDS: METOCLOPRAMIDE HCL INJ 10 MG/2 ML VIAL IV PUSH ×4 (06:18→23:22)
[2023-04-02] MEDS: methylPREDNISolone SOD SUCC 40 MG VIAL IV PUSH ×2 (06:18→13:15)
[2023-04-02] MEDS: SODIUM CHLORIDE 0.9% IV 1,000 ML 125 ML IV CONT (06:21)
[2023-04-02] MEDS: ONDANSETRON INJ 4 MG/2 ML VIAL IV PUSH (08:31)
[2023-04-02] MEDS: ENOXAPARIN 40 MG/0.4 ML SYRINGE SUB-Q (08:33)
[2023-04-02] MEDS: PANTOPRAZOLE SODIUM IV 40 MG VIAL IV PUSH ×2 (08:34→20:29)
[2023-04-02] MEDS: NICOTINE (*PBKC) 21 MG PATCH 1 PATCH TRANSDERM (08:36)
[2023-04-02] MEDS: LORazepam INJ (*CRX) 2 MG/ML VIAL 0.5 MG IV PUSH ×2 (08:37→13:29)
[2023-04-02] MEDS: metroNIDAZOLE 500 MG/ISO 100ML 500 MG/100 ML BAG 100 MG IVPB ×3 (08:45→20:29)
--- NOTE | 2023-04-02 08:51 | PCSTNOTE ---
RN reported patient has been vomitting; just presented Zofran. Hold off swallow evaluation until later this morning or afternoon.
--- NOTE | 2023-04-02 09:30 | PM.IMPN ---
Progress Note: A&P Assessment and Plan (1) Sepsis: Code(s): A41.9 - Sepsis, unspecified organism Status: Acute Assessment and Plan: Urinary tract infection identified as well as Gram-positive cocci in clusters in 2 of 2 blood cultures. Awaiting species and sensitivity. 04/01: Staph aureus identified in urine, likely the same in blood, susceptibilities to follow up 04/02: MRSA identified in blood and urine. Continue vancomycin. Add Flagyl due to aspiration yesterday. Repeat blood culture drawn yesterday is already positive for gram positive cocci in clusters in aerobic bottle. (2) Altered mental status: Code(s): R41.82 - Altered mental status, unspecified Status: Acute Assessment and Plan: Patient is significantly encephalopathic has been combative with staff and yelling at family when decision to admit from the emergency department. Uncertain if this is substance related or psychiatric related or related to sepsis. 04/01: Patient may be exhibiting withdrawal symptoms from chronic use of benzodiazepines. 04/02: patient again vomiting and agitated but will open eyes and is mostly oriented when consistently stimulated. (3) Combative behavior: Code(s): R46.89 - Other symptoms and signs involving appearance and behavior Status: Acute Assessment and Plan: Patient received Haldol for combative behavior now appears to be significantly encephalopathic. 04/01: Overnight patient received Zyprexa for combative behavior. 04/02: again received IM Zyprexa last night for combative behavior. Ordered Seroquel at night to start tonight. (4) JG (acute kidney injury): Code(s): N17.9 - Acute kidney failure, unspecified Status: Acute Assessment and Plan: Initial creatinine 1.5 has improved to 0.9 with IV fluids. 04/01: BUN 40, Cr 0.7 04/02: BUN 42, Cr 0.8 (5) Hyponatremia: Code(s): E87.1 - Hypo-osmolality and hyponatremia Status: Acute Assessment and Plan: Sodium is down to 128, initial level 130. No prior records. 04/01: Sodium 135, improved due to treatment of underlying infection 04/02: Na 139 (6) UTI (urinary tract infection): Code(s): N39.0 - Urinary tract infection, site not specified Status: Acute Assessment and Plan: Patient on ceftriaxone, dose increased to 2g Q12h and patient on vancomycin IV 04/01: Staph aureus on culture, sensitivities pending 04/02: Kc remains in place, vancomycin on board (7) Bacteremia: Code(s): R78.81 - Bacteremia Status: Acute Assessment and Plan: MRSA--Vancomycin ordered (8) Tobacco use disorder, continuous: Code(s): F17.209 - Nicotine dependence, unspecified, with unspecified nicotine-induced disorders Status: Acute Assessment and Plan: Nicotine patch applied. Plan Patient possibly exhibiting withdrawal symptoms from Xanax. Ativan 0.5 mg IV q.6 p.r.n. for agitation or withdrawal symptoms. Seroquel added Hospitalist attending, Dr. Reese, evaluated patient in conjunction with my care Repeat chest x-ray due to likely aspiration this morning Soft wrist restraints to keep patient from pulling medical devices IV Fluids infusing MRSA in blood and urine Repeat blood cultures 04/01 positive again, will redraw tomorrow Kc catheter in place Diet: NPO, NG replaced VTE prophylaxis: SCDs and Lovenox Medication reconciliation: Complete Time Spent With Patient Time with patient: Greater than 35 minutes Subjective Date/time seen: 04/02/23 11:30 Interval history: Overnight patient received Zyprexa for severe agitation. This morning patient recurrent episodes of emesis with concern that he may further aspirated. NG tube had to be replaced patient treated with Compazine and repeat chest x-ray and KUB ordered. NG appropriately placed. Patient started on Flagyl due to likely aspiration yesterday. [facility] notified us that repeat blood cultures drawn on 04/01 are still growing
[2023-04-02] MEDS: PROCHLORPERAZINE EDISYLATE 10 MG/2 ML VIAL IV PUSH (09:37)
[2023-04-02 12:39] LABS: Osmolality, Urine 771 mOsm/kg (50-1200)
[2023-04-02] MEDS: POTASSIUM CHLORIDE INJ 40 MEQ in SODIUM CHLORIDE 0.9% IV 500 ML 130 MEQ IVPB ×2 (13:15→19:09)
[2023-04-02 13:19] LABS: Glucose Point of Care 267 mg/dl (65-105)
--- NOTE | 2023-04-02 13:35 | PCSTNOTE ---
BSE will not be attempted this date as patient received NG tube for feedings today. Will attempt BSE tomorrow.
--- NOTE | 2023-04-02 15:20 | ECG_ITS ---
Measurements Intervals [place] Rate: 82 P: 48 NV: 204 QRS: -2 QRSD: 115 T: 60 QT: 375 QTc: 440 Interpretive Statements SINUS RHYTHM INTRAVENTRICULAR CONDUCTION DELAY BASELINE WANDER- II, V4-V6 BORDERLINE ECG COMPARED TO ECG 04/01/2023 10:54:58 SINUS RHYTHM NOW PRESENT Electronically Signed On 04-02-2023 15:48:52 CDT by Harjit Trujillo D.O.
--- NOTE | 2023-04-02 15:21 | WPDCNINT ---
Assessment and Plan Assessment and plan (1) Sepsis: Code(s): A41.9 - Sepsis, unspecified organism Status: Acute Assessment and Plan: Patient presented with signs of sepsis and his blood cultures are growing Gram-positive cocci 03/30-urine culture -MRSA 03/30 blood cultures x 2 - MRSA 04/01 repeat blood cultures x 0-[id number]-[id number] cocci in clusters 03/[address] and abdomen were unremarkable except cholelithiasis and did not show any source of infection UA was suggestive of UTI Procalcitonin 2.5 WBC has been improving Since then patient has had vomiting and suspected to have aspiration Patient is currently on vancomycin will be continue. Patient was also started on Flagyl and cefepime to add Gram-negative coverage Obtain repeat CT scan to evaluate for pneumonia Initial echo negative for any evidence of infective endocarditis Echo 03/31 Summary ? 1. Complete two-dimensional, color flow and Doppler transthoracic echocardiogram is performed. ? 2. Left ventricular chamber dimension is normal. ? 3. Left ventricular systolic function is normal, estimated at 55-60%. ? 4. There is no increased left ventricular wall thickness. ? 5. The left ventricular diastolic function is grade I diastolic dysfunction. ? 6. Left atrial chamber dimension is mildly enlarged. ? 7. There is mild tricuspid valve regurgitation. ? 8. Mild pulmonary hypertension, estimated pulmonary arterial systolic pressure is 36 mmHg. ? 9. There is mild pulmonic regurgitation. (2) Bacteremia: Code(s): R78.81 - Bacteremia Status: Acute Assessment and Plan: See above (3) Tobacco use disorder, continuous: Code(s): F17.209 - Nicotine dependence, unspecified, with unspecified nicotine-induced disorders Status: Acute Assessment and Plan: Patient currently has nicotine patch on Patient currently not in a condition for counseling (4) Combative behavior: Code(s): R46.89 - Other symptoms and signs involving appearance and behavior Status: Acute Assessment and Plan: Patient has been uncooperative and combative with staff on the floor. He has pulled out his NG tube multiple times. He has been receiving multiple doses of Haldol Zyprexa and Ativan. He does not have history of alcohol abuse as per his . Patient continues to state that he would like to leave against medical advice and go home but his was at bedside does not want him to be discharged and would not take him home. This is likely multifactorial secondary to patient's behavior with component of delirium secondary to medications, hyperglycemia and steroids. Will discontinue benzodiazepine, decrease steroid May need to use Precedex infusion if patient is agitated He appears much more calm at this time and will transfer to ICU and closely monitor. Continue seroquel at night (5) Delirium: Code(s): R41.0 - Disorientation, unspecified Status: Acute Assessment and Plan: See above (6) Diabetes mellitus: Code(s): E11.9 - Type 2 diabetes mellitus without complications Status: Acute Assessment and Plan: Patient presented with elevated blood sugar in the range of 400s. He has HbA1c was 10.6 This suggest patient has unknown knows diabetes mellitus Blood sugars elevated inpatient I will decrease steroids Increase sliding scale to q.4 hours and high dose. Will add subcutaneous Lantus depending on blood sugars after these interventions (7) COPD exacerbation: Code(s): J44.1 - Chronic obstructive pulmonary disease with (acute) exacerbation Status: Acute Assessment and Plan: Patient has heavy history of smoking the course he had significant wheezing and increased work of breathing Patient likely has undiagnosed COPD Patient was started on methylprednisolone and bronchodilators which will be continued I will decrease the dose of Solu-Medrol (8) Nausea & vomiting: Code(s): R11.2 - Nausea with vomiting, u
--- NOTE | 2023-04-02 15:25 | PC.NURSE ---
Patient received from [facility]-. Bedside report received from Catalina CUEVA. Dr. Ralph at bedside evaluating patient.
[2023-04-02 15:27] LABS: Base Excess ABG 3.6 mEq/l (+/-2.0); Fractional Inspired Oxygen 60 %; HCO3 ABG 27.7 mEq/l (22.0-26.0); Oxygen Content ABG 18.9 %vol (16.0-22.0); Oxyhemoglobin 95.9 % THb (90.0-100.0); PO2 ABG 86.8 mmHg (80.0-100.0); PO2 FiO2 Ratio Arterial Blood 1.45 %; pH ABG 7.458 (7.350-7.450)
[2023-04-02 15:28] LABS: Modified Allen's Test Pass; Site Drawn RIGHT RADIAL
[2023-04-02 15:29] LABS: Device HIGH FLOW NASAL CANN
[2023-04-02] MEDS: POTASSIUM CHLORIDE 20 MEQ PACKET (FOR LIQUID) 40 MEQ PO (16:01)
[2023-04-02] MEDS: CEFEPIME 1 GM/NS 50 ML 1 GM/50 ML BAG IVPB (16:02)
[2023-04-02 16:08] LABS: Glucose Point of Care 245 mg/dl (65-105)
[2023-04-02 16:34] LABS: NT Pro B Type Natriuretic Pept 988 pg/mL (19.9-100)
--- NOTE | 2023-04-02 17:32 | PC.NURSE ---
This patient, Alex Amezquita, was transferred to ICU on 04/02/23 at 1500. Personal belongings sent with patient. Report given to HAMMAD Mans[place] Appropriate documentation sent with patient.
[2023-04-02] MEDS: dexmedeTOMIDine 400 MCG/100 ML 400 MCG/100 ML BAG IV CONT (19:45)
[2023-04-02 20:41] LABS: Glucose Point of Care 205 mg/dl (65-105)
[2023-04-02] MEDS: FUROSEMIDE INJ 40 MG/4 ML VIAL 20 MG IV PUSH (21:05)
[2023-04-02 23:27] LABS: Glucose Point of Care 203 mg/dl (65-105)
[2023-04-03] VITALS (31 sets, daily range): BP systolic 108–155; BP diastolic 67–86; PULSE 60–103; RESP 21–34; TEMP 36.2–37.1; O2SAT 9–100
[2023-04-03] MEDS: metroNIDAZOLE 500 MG/ISO 100ML 500 MG/100 ML BAG 100 MG IVPB (03:13)
[2023-04-03] MEDS: CEFEPIME 1 GM/NS 50 ML 1 GM/50 ML BAG IVPB (03:23)
[2023-04-03 04:32] LABS: Basophils Percent Auto 0.3 % (0.2-1.2); Hematocrit 36.3 % (42.0-52.0); Hemoglobin 11.6 g/dL (14.0-18.0); Immature Granulocyte Absolute 0.19 K/mm3 (0.00-0.031); Immature Granulocyte Percent A 1.3 % (0-0.5); Lymphocytes Absolute Auto 0.79 K/mm3 (0.9-3.2); Lymphocytes Percent Auto 5.6 % (18.3-44.2); Mean Corpuscular Hemoglobin 28.2 pg (26-34); Mean Corpuscular Volume 88.3 fl (80-100); Mean Platelet Volume 10.8 fl (7.4-10.4); Neutrophils Absolute Auto 12.1 K/mm3 (1.3-6.7); Neutrophils Percent Auto 85.8 % (45.5-73.1); Platelet Count Result 225 k/mm3 (150-375); Red Blood Count 4.11 M/mm3 (4.6-6.20); Red Cell Distribution Width 13.2 % (11.5-14.5); White Blood Count 14.2 K/mm3 (4.5-10.0)
[2023-04-03 04:44] LABS: Anion Gap 1 mmol/L (8-16); Blood Urea Nitrogen 41 mg/dL (9-20); CRP 6.4 mg/dL (<1.0); Calcium 7.4 mg/dL (8.4-10.2); Carbon Dioxide 32 mmol/L (22-30); Chloride 107 mmol/L (98-107); Estimated CRCL calculation 101 ml/min; Estimated Glomerular Filt Rate > 60; Glucose 226 mg/dL (65-110); Magnesium 2.4 mg/dL (1.6-2.3); Potassium 4.1 mmol/L (3.4-5.0); Sodium 140 mmol/L (137-145)
[2023-04-03 04:53] LABS: Glucose Point of Care 241 mg/dl (65-105)
[2023-04-03] MEDS: INSULIN ASPART (*BKC) 100 UNITS/ML SUB-Q ×2 (04:53→08:33)
[2023-04-03] MEDS: METOCLOPRAMIDE HCL INJ 10 MG/2 ML VIAL IV PUSH ×2 (04:54→12:10)
[2023-04-03 05:12] LABS: Procalcitonin 1.1 ng/mL
--- NOTE | 2023-04-03 08:02 | WPDINTPN ---
Progress Note: A&P Assessment and Plan (1) Sepsis: Code(s): A41.9 - Sepsis, unspecified organism Status: Acute Assessment and Plan: Patient presented with signs of sepsis and his blood cultures are growing Gram-positive cocci 03/30-urine culture -MRSA 03/30 blood cultures x 2 - MRSA 04/01 repeat blood cultures x 0-Kyfp-joljhcfr cocci in clusters 03/[address] and abdomen were unremarkable except cholelithiasis and did not show any source of infection UA was suggestive of UTI Procalcitonin 2.5 WBC has been improving Since then patient has had vomiting and suspected to have aspiration Patient is currently on vancomycin will be continue. Patient was also started on Flagyl and cefepime to add Gram-negative coverage for aspiration pneumonia 04/03 CT scan did not show any evidence of pneumonia-DC Flagyl and cefepime. Continue vancomycin for MRSA pneumonia Initial echo negative for any evidence of infective endocarditis I will repeat blood cultures. Consult Cardiology to evaluate patient for TELLY Echo 03/31 Summary ? 1. Complete two-dimensional, color flow and Doppler transthoracic echocardiogram is performed. ? 2. Left ventricular chamber dimension is normal. ? 3. Left ventricular systolic function is normal, estimated at 55-60%. ? 4. There is no increased left ventricular wall thickness. ? 5. The left ventricular diastolic function is grade I diastolic dysfunction. ? 6. Left atrial chamber dimension is mildly enlarged. ? 7. There is mild tricuspid valve regurgitation. ? 8. Mild pulmonary hypertension, estimated pulmonary arterial systolic pressure is 36 mmHg. ? 9. There is mild pulmonic regurgitation. (2) Bacteremia: Code(s): R78.81 - Bacteremia Status: Acute Assessment and Plan: See above (3) Tobacco use disorder, continuous: Code(s): F17.209 - Nicotine dependence, unspecified, with unspecified nicotine-induced disorders Status: Acute Assessment and Plan: Patient currently has nicotine patch on Patient currently not in a condition for counseling (4) Combative behavior: Code(s): R46.89 - Other symptoms and signs involving appearance and behavior Status: Acute Assessment and Plan: Patient has been uncooperative and combative with staff on the floor. He has pulled out his NG tube multiple times. He has been receiving multiple doses of Haldol Zyprexa and Ativan. He does not have history of alcohol abuse as per his . Patient continues to state that he would like to leave against medical advice and go home but his was at bedside does not want him to be discharged and would not take him home. This is likely multifactorial secondary to patient's behavior with component of delirium secondary to medications, hyperglycemia and steroids. Patient now off of benzodiazepine, and steroids decreased Currently on precedex infusion which I will wean it off today to assess patient Continue seroquel at night once his swallowing cleared speech (5) Delirium: Code(s): R41.0 - Disorientation, unspecified Status: Acute Assessment and Plan: See above (6) Diabetes mellitus: Code(s): E11.9 - Type 2 diabetes mellitus without complications Status: Acute Assessment and Plan: Patient presented with elevated blood sugar in the range of 400s. He has HbA1c was 10.6 This suggest patient has undiagnosed diabetes mellitus Blood sugars elevated inpatient I have decreased steroids Continue sliding scale to q.4 hours and high dose. Add Lantus (7) COPD exacerbation: Code(s): J44.1 - Chronic obstructive pulmonary disease with (acute) exacerbation Status: Acute Assessment and Plan: Patient has heavy history of smoking the course he had significant wheezing and increased work of breathing Patient likely has undiagnosed COPD Patient was started on methylprednisolone and bronchodilators which will be continued (8) Nausea & vomiting: C
[2023-04-03] MEDS: ENOXAPARIN 40 MG/0.4 ML SYRINGE SUB-Q (08:33)
[2023-04-03] MEDS: INSULIN GLARGINE (*BKC) 100 UNITS/ML 20 UNITS SUB-Q (08:33)
[2023-04-03] MEDS: methylPREDNISolone SOD SUCC 40 MG VIAL IV PUSH (08:34)
[2023-04-03] MEDS: NICOTINE (*PBKC) 21 MG PATCH 1 PATCH TRANSDERM (08:34)
[2023-04-03] MEDS: PANTOPRAZOLE SODIUM IV 40 MG VIAL IV PUSH (08:34)
[2023-04-03 09:19] LABS: Glucose Point of Care 206 mg/dl (65-105)
--- NOTE | 2023-04-03 09:20 | PM.CNCAR ---
Assessment and Plan Assessment and plan (1) Bacteremia: Code(s): R78.81 - Bacteremia Status: Acute Assessment and Plan: MRSA in urine and blood. On antibiotics as per latin americ[place] studies professor. Discuss need for TELLY with patient and he refuses. Will ask him again on Wednesday to plan for TELLY with anesthesia on Wednesday. (2) UTI (urinary tract infection): Code(s): N39.0 - Urinary tract infection, site not specified Status: Acute (3) Sepsis: Code(s): A41.9 - Sepsis, unspecified organism Status: Acute (4) Hypertension: Code(s): I10 - Essential (primary) hypertension Status: Acute Assessment and Plan: Stable. History of Present Illness History of Present Illness Consult date/time: 04/03/23 09:20 Reason For Visit: Sepsis Narrative: 67 yr old man admitted with confusion, found to be septic with MRSA in urine and blood. He has a history of DM, hypertension, smoking, anxiety Reason for consult is TELLY to definitively r/o endocarditis. A transthoracic echo on 03/31/23 was negative for vegetation. Patient has no chest pain, sob currently. He is asking the nurse for water and states he has not received any, and is visibly upset about this. I discussed the need for TELLY that would be done on Wednesday since Wednesday is a holiday and we do not do TELLY over weekends. He states he does not want to have TELLY, and that he would rather go home. Review of Systems Constitutional: Constitutional: Reports as per HPI, Denies chills and Denies fever(s) Cardiovascular: Cardiovascular: Reports as per HPI and Denies chest pain Respiratory: Respiratory: Reports as per HPI and Denies dyspnea Gastrointestinal: Gastrointestinal: Reports as per HPI and Denies abdominal pain Genitourinary: Genitourinary: Reports as per HPI Musculoskeletal: Musculoskeletal: Reports as per HPI Neurologic: Reports as per HPI, Denies dizziness and Denies syncope [facility] Past Medical History Medical History (Updated 04/03/23 @ 08:09 by Cleve Ralph MD) Tobacco use disorder, continuous Family History Family History Other Alcohol abuse by father Social History Social History Smoking packs per day: 1 Smoking cigarettes per day: 20.0 Smoking status: Current every day smoker Tobacco type: cigarettes Alcohol intake: never Lack of Transportation: No Lack of Food: Never True Current Housing: I Have Housing Concerned About Future Housing: No Difficulty Paying Gas/Electric Bills: No Difficulty Paying for Meds: No Currently Unemployed: No Education: High School Diploma/GED Difficulty w/ Childcare or Family Care: No Spiritual care concerns: No Meds Home Medications and Allergies Home Medications Medication Instructions Recorded Confirmed Type alprazolam 2 mg tablet (Xanax) 2 mg PO BID 03/30/23 03/30/23 History Allergies Allergy/AdvReac Type Severity Reaction Status Date / Time nkda Allergy Mild Uncoded 10/14/10 22:41 Vital Signs Vital Signs - 24 hr 04/02/23 11:27 04/02/23 11:27 04/02/23 11:44 Temperature 98.2 F Pulse Rate 102 H 102 H 91 Respiratory Rate 20 12 Blood Pressure 158/88 H Pulse Oximetry 94 99 Oxygen Delivery High Flow Nasal Cannula Oxygen Flow Rate 6 04/02/23 11:59 04/02/23 15:55 04/02/23 15:55 Temperature Pulse Rate 97 85 86 Respiratory Rate 20 20 Blood Pressure Pulse Oximetry 95 Oxygen Delivery High Flow Nasal Cannula Oxygen Flow Rate 6 04/02/23 16:00 04/02/23 16:00 04/02/23 16:30 Temperature 97.7 F Pulse Rate 87 87 94 Respiratory Rate 29 H 32 H Blood Pressure 181/101 H 155/90 H Pulse Oximetry 97 99 Oxygen Delivery Oxygen Flow Rate 04/02/23 16:00 04/02/23 12:00 04/02/23 10:00 Temperature Pulse Rate 92 Respiratory Rate Blood Pressure Pulse Oximetry 99 94 Oxygen Delivery High
[2023-04-03 10:40] LABS: Vancomycin Trough 16.5 ug/mL (10.0-20.0)
[2023-04-03] MEDS: IPRATROPIUM BR 0.02% INH SOLN 0.5 MG/2.5 ML VIAL INHALATION (12:26)
[2023-04-03] MEDS: ALBUTEROL SULFATE NEB 2.5 MG/3 ML INH INHALATION (12:26)
--- NOTE | 2023-04-03 13:04 | PCSTNOTE ---
Bedside swallowing evaluation completed. Patient positioned upright in bed with head of bed elevated. Distractible and asking for water repeatedly. Partial cursory oral peripheral examination completed, results within functional limits. Trials of thin liquid by spoon, cup, and straw were given. Patient showed no signs of aspiration (e.g. shortness of breath, coughing, watering eyes). Applesauce was given by spoon, patient again showed no signs of aspiration but stated he did not like it and didn't want anymore. Patient refused to trial other food textures during evaluation. Recommendations: thin liquids and pureed consistency diet texture. Swallowing precaution recommendations placed in chart. Please note that silent aspiration cannot be ruled out at bedside and can be evaluated with a modified barium swallow study. No further speech therapy is recommended for this patient at this time. Thank you for the referral of this patient.
--- NOTE | 2023-04-03 13:04 | PC.NURSE ---
Multiple attempts made to preform hygiene on patient including Kc care, and oral hygiene. Patient has had a bowel movement in bed and is refusing RN to clean it up. Patient keeps requesting to be left alone and that he does not care that there is poop on him. RN has been trying to clean up patients BM since 0800 this AM. RN educated patient on the importance of hygiene especially in this area due to risk of skin breakdown and UTI from stool. Patient states he doesn't care . RN to continue to offer hygiene care to patient and to monitor. aware.
[2023-04-03 13:12] LABS: Glucose Point of Care 161 mg/dl (65-105)
[2023-04-03] MEDS: FUROSEMIDE INJ 40 MG/4 ML VIAL 20 MG IV PUSH (13:31)
--- NOTE | 2023-04-03 15:49 | PM.IMPN ---
Progress Note: A&P Assessment and Plan (1) Sepsis: Code(s): A41.9 - Sepsis, unspecified organism Status: Acute Assessment and Plan: Patient presented with signs of sepsis of tachycardia, leukocytosis, low grade fever, lactic acidosis and positive blood cultures. UA was suggestive of UTI. PCT 2.5. WBC 15.7K. CRP 41.5. 03/30 CT abd/pelvis was unremarkable except cholelithiasis and did not show any source of infection 03/30-urine culture -MRSA 03/30 blood cultures x 2 - MRSA 03/31 CTA chest - No PE and no adenopathy or lung findings. 04/01 repeat blood cultures x 8-[id number]-ganqsukw cocci in clusters 03/31 Echo showing EF 50-55% with Grade I diastolic dysfunction but no vegetations. 04/02 CT Ch/Abd/pelvis showing mild pulmonary edema. The patient has had vomiting and suspected to have aspiration PNA. Patient is currently on vancomycin will be continue. Patient was also started on Flagyl and cefepime to add Gram-negative coverage for aspiration pneumonia but stopped due to no evidence of PNA by CT. Will need TELLY to discover source. Repeat BCx. Appreciate informal waiter/waitress input. (2) Hypoxia: Code(s): R09.02 - Hypoxemia Status: Acute Assessment and Plan: 04/02 Patient has had worsening hypoxia since admission. He was on 10 L of oxygen by nasal cannula. Patient initially appeared to be in COPD exacerbation and was started on steroid and bronchodilator. Due to work of breathing he was initially on BiPAP but this was discontinued due to vomiting. Possibility of aspiration. Apparently patient was being given the soda by family members despite the fact that he was NPO 04/02 ABG 7.45/40/86/27 on FiO2 60%. BNP 988 CT scan was checked and showed pulmonary edema and pleural effusions. No evidence of pneumonia Discontinue antibiotics. Patient was given Lasix IV with good response Continue to wean oxygen Speech consulted for swallow evaluation (3) Combative behavior: Code(s): R46.89 - Other symptoms and signs involving appearance and behavior Status: Acute Assessment and Plan: Patient has been uncooperative and combative with staff on the floor. He has pulled out his NG tube multiple times. He has been receiving multiple doses of Haldol, Zyprexa and Ativan. He does not have history of alcohol abuse as per his . Patient continues to state that he would like to leave against medical advice but he is not felt competent to make that decision at this time. This is likely multifactorial secondary to patient's behavior with component of delirium secondary to medications, sepsis, hyperglycemia and steroids. Patient now off of benzodiazepine, and steroids decreased Was on precedex infusion but weaned off Continue seroquel at night once his swallowing cleared speech (4) Bacteremia: Code(s): R78.81 - Bacteremia Status: Acute Assessment and Plan: As above (5) Delirium: Code(s): R41.0 - Disorientation, unspecified Status: Acute Assessment and Plan: See above (6) Diabetes mellitus: Code(s): E11.9 - Type 2 diabetes mellitus without complications Status: Acute Assessment and Plan: Patient presented with elevated blood sugar in the range of 400s. HbA1c was 10.6 Patient has undiagnosed diabetes mellitus The patient's blood glucose was reviewed on 04/03 Glucose remains elevated but better Continue AccuCheks covering with sliding scale. Hypoglycemia protocol available as needed. Continue to monitor (7) COPD exacerbation: Code(s): J44.1 - Chronic obstructive pulmonary disease with (acute) exacerbation Status: Acute Assessment and Plan: Patient has heavy history of smoking. Consider COPD exacerbation contributing to his increased work of breathing Patient likely has undiagnosed COPD Patient was started on methylprednisolone and bronchodilators which will be continued (8) Nausea & vomiting: Code(s): R11.2 - Na
--- NOTE | 2023-04-03 16:26 | PC.NURSE ---
RN notified to patients room by bed alarms going off. Patient was on side of bed attempting to get out of bed stating he is leaving now . Patient has removed all his clothing, oxygen and some of his monitoring devices. Patient is very agitated at this time. Patient states that I feel much better now, I need to leave, you guys can't force me to stay here, I have kids at home that need me . Patient is angry and yelling at staff. Patient is demanding the doctor come out to see the patient now. Patient is now demanding this RN call all patients contacts to see if he can get a ride. MD updated and notified of patient behavior. MD to come out and see patient.
--- NOTE | 2023-04-04 16:03 | PM.DS ---
DS: Admitting Diagnosis Discharge Date 04/03/23 Admitting Diagnosis Confusion DS: Discharge Diagnosis Discharge Diagnosis (1) Sepsis: Code(s): A41.9 - Sepsis, unspecified organism Status: Acute (2) Hypoxia: Code(s): R09.02 - Hypoxemia Status: Acute (3) Combative behavior: Code(s): R46.89 - Other symptoms and signs involving appearance and behavior Status: Acute (4) Bacteremia: Code(s): R78.81 - Bacteremia Status: Acute (5) Delirium: Code(s): R41.0 - Disorientation, unspecified Status: Acute (6) Diabetes mellitus: Code(s): E11.9 - Type 2 diabetes mellitus without complications Status: Acute (7) COPD exacerbation: Code(s): J44.1 - Chronic obstructive pulmonary disease with (acute) exacerbation Status: Acute (8) Nausea & vomiting: Code(s): R11.2 - Nausea with vomiting, unspecified Status: Acute (9) Hypertension: Code(s): I10 - Essential (primary) hypertension Status: Acute (10) Dysphagia: Code(s): R13.10 - Dysphagia, unspecified Status: Acute (11) Tobacco use disorder, continuous: Code(s): F17.209 - Nicotine dependence, unspecified, with unspecified nicotine-induced disorders Status: Acute DS: Summary Hospital Course Reason for hospitalization: 67yo male with tobacco abuse here for confusion and found to have septicemia. Please see H&P for details. Hospital Course: Patient presented with signs of sepsis of tachycardia, leukocytosis, low grade fever, lactic acidosis, altered mental status and positive blood cultures. UA was suggestive of UTI. PCT 2.5. WBC 15.7K. CRP 41.5. CT abd/pelvis was unremarkable except cholelithiasis and did not show any source of infection. Urine culture growing MRSA. Blood cultures x 2 was MRSA positive. CTA chest was negative for PE and no adenopathy or lung findings. Repeat blood cultures agai showing MRSA. Echo showing EF 50-55% with Grade I diastolic dysfunction but no vegetations. CT Chest/Abd/pelvis showing mild pulmonary edema. The patient was vomiting and suspected to have aspiration PNA. Patient was on vancomycin and also started on Flagyl and cefepime. Plan for TELLY to discover source. Patient developed hypoxic respiratory failure. Patient initially appeared to be in COPD exacerbation and was started on steroid and bronchodilator.? Due to work of breathing he was initially on BiPAP but this was discontinued due to vomiting.? Possibility of aspiration.? Apparently patient was being given soda by family members despite the fact that he was NPO. Patient was uncooperative and combative with staff on the floor.? He had pulled out his NG tube multiple times.? He had been receiving multiple doses of Haldol, Zyprexa and Ativan.? He does not have history of alcohol abuse as per his .?He was on precedex infusion but this was weaned off. His confusion and agitation resolved. Patient presented with elevated blood sugar in the range of 400s.? HbA1c was 10.6. Patient has undiagnosed diabetes mellitus. Patient has heavy history of smoking. Suspected he had COPD exacerbation contributing to his increased work of breathing. Called back to the room late afternoon on 04/03/23. Patient was demanding to leave against AMA. He is oriented x4 now. Explained the risk of leaving AMA given the septicemia and his hypoxia (he was still on O2 requiring 8L). Explained that he would most likely if he left AMA. Multiple avenues of discussion were undertaken to try to convince patient to stay hospitalized but patient continued to refuse. RN obtained information from a dtr, Cadence, who mentioned that patient and patient's has hx of drug use (possibly meth). Patient lives with his daughter Ericka. Spoke with Ericka and explained the severity of the patient's condition and that he most likely wouldn't survive if he decided to leave AMA. With this information, consider the MRSA bacteremia may be
== END 2023-04-03 17:45 | disposition left against medical advice (07) | DRG 689 ==
LOC: ANHED 16:09 → ANHIMU 17:26 → ANHICU 04-02 15:15
PROVIDERS: Family Medicine; General Practice; Internal Medicine; Internal Medicine Nephrology; Nurse Practitioner; Admitting Provider Internal Medicine; Emergency Provider Student in an Organized Health Care Education/Training Program; PCP Emergency Medicine; Visit Provider Internal Medicine
DX: N39.0 Urinary tract infection, site not specified (principal); J96.91 Respiratory failure, unspecified with hypoxia; N17.9 Acute kidney failure, unspecified; E87.1 Hypo-osmolality and hyponatremia; J44.1 Chronic obstructive pulmonary disease with (acute) exacerbation; J81.1 Chronic pulmonary edema; E11.65 Type 2 diabetes mellitus with hyperglycemia; R13.10 Dysphagia, unspecified; B95.62 Methicillin resistant Staphylococcus aureus infection as the cause of diseases classified elsewhere; E86.0 Dehydration; F17.210 Nicotine dependence, cigarettes, uncomplicated; F10.10 Alcohol abuse, uncomplicated; F41.9 Anxiety disorder, unspecified; I10 Essential (primary) hypertension; K80.20 Calculus of gallbladder without cholecystitis without obstruction; M25.512 Pain in left shoulder; M25.552 Pain in left hip; M25.551 Pain in right hip; R11.10 Vomiting, unspecified; W19.XXXA Unspecified fall, initial encounter; Z20.822 Contact with and (suspected) exposure to COVID-19
CPT/HCPCS: 36415; 36600; 70450; 71045; 71250; 71275; 72125; 73030; 73060; 73502; 74018; 74176; 80048; 80053; 80202; 80307; 81001; 81050; 82140; 82375; 82533; 82550; 82570; 82805; 82948; 83036; 83050; 83605; 83690; 83735; 83880; 83930; 83935; 84100; 84145; 84156; 84300; 84439; 84443; 84480; 84484; 84540; 85025; 85380; 85610; 85730; 86140; 86850; 86900; 86901; 87040; 87077; 87081; 87086; 87088; 87186; 87636; 92610; 93005; 93306; 94002; 94003; 94640; 96361; 96365; 99285; A9270; C9113; J0692; J0696; J0780; J1630; J1650; J1815; J1836; J1885; J1940; J2060; J2405; J2550; J2765; J2920; J2930; J3370; J3480; J7030; J7040; J7120; Q9967

== ENCOUNTER 2024-12-26 14:37 | Outpatient (CLI) | payer MEDICARE, SELFPAY ==
--- OUTSIDE RECORDS SUMMARY | 2024-12-26 14:41 | XMS_ITS | Encounter Summary ---
Author Organization [facility] Address [address] [place] [address] Phone Care Team Providers Care Milk Pasteurizer Name Role Phone Angel Cummings MD Primary Care Provider + [phone] Reinier Martinez MD PhD Unavailable [phone] Sheridan Yusuf MD Unavailable [phone] Olu Martin MD Unavailable [phone] Olimpia Beavers MD Unavailable [phone] No, Physician Primary Care Provider Carla Casillas RN Unavailable [phone] Carla Casillas RN Unavailable [phone] Rio Bear MD Primary Care Provider + [phone] Jayshree CurtisW Unavailable [phone] Encounter Details Date Type Department Care Team (Late st Contact Info) Description 05/24/[address] 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 Author [facility] Diamond Patricio RN Note: Patient will establish a comfort-function goal and identify the pain level that will allow the patient to perform desired activities and achieve an acceptable quality of life. documented as of this encounter Visit Diagnoses Not on filedocumented in this encounter Additional Health Concerns Infection Onset Date Last Indicated Resolved Time MRSA 04/16/2023 04/16/2023 10/13/2023 3:05 AM CDT MRSA Comment:MRSA Isolation Snf 10/04/24 09/14/2024 09/14/2024 10/04/2024 6:[address] documented as of this encounter Care Teams Milk Pasteurizer Relationship Specialty Start Date End Date Angel Cummings MD [address] [place] [address] PCP - General Internal Medicine 04/20/18 09/03/20 No, Physician PCP - General 12/01/21 09/29/23 Rio Bear MD [address] [place] [address] PCP - General Family Medicine 09/30/23 Reinier Martinez MD PhD [address] [place] [address] Radiation Oncologist Radiation Oncology 06/10/18 Sheridan Yusuf MD [address] [place] [address] Medical Oncologist/Auto Wheel Alignment Specialist Medical Oncology 06/10/18 Olu Martin MD [address] [place] [address] Surgeon Orthopedic Surgery 06/10/18 Olimpia Beavers MD [address] [place] [address] Medical Oncologist/Auto Wheel Alignment Specialist Hematology 09/18/20 Carla Casillas RN [address] [id number] SHOP Outpatient Manager [place] 04/26/23 05/23/23 Carla Casillas RN [address] [address] SHOP Outpatient Manager [place] 07/14/23 08/10/23 Jayshree Curtis, PROJECT PRODUCT MANAGER [address] [facility] ([facility] Mailstop [phone] [place], [place] [id number] SHOP Outpatient Manager [place] 09/20/24 10/16/24 documented as of this encounter
--- OUTSIDE RECORDS SUMMARY | 2024-12-26 14:41 | XMS_ITS | Continuity of Care Document ---
Author Organization [facility] Address [address] [place] [address] [place] [address] Phone Care Team Providers Care Confidential Investigator Name Role Phone Rio Bear MD Unavailable Unavailable Allergies, Adverse Reactions, Alerts Substance Reaction Status Criticality No Known Allergies Active No Inform ation Medications Medication Instructions Dosage Effective Dates (start - stop) Status Comments Lantus Solostar U-100 Insulin 100 unit/mL (3 mL) subcutaneous pen inject by subcutaneous route as per insulin protocol 0.00 - Active inject 20 units SC daily OneTouch Verio test strips check blood glucose twice per day - Active e11.9 Percocet 5 mg-325 mg tablet take 1 tablet by oral route 2 times every day as needed as needed 1 tablet - Active PRN for pain, avoid driving or operate machines omeprazole 20 mg capsule,delayed release take 1 capsule by oral route every day before a meal 20 MG - Active metformin 1,000 mg tablet take 1 tablet by oral route 2 times every day with morning and evening meals 1000 MG - Active Pen Needle 31 gauge x 5/16 use with lantus pen - Active albuterol sulfate HFA 90 mcg/actuation aerosol inhaler inhale 1 puff by inhalation route every 4 - 6 hours as needed as needed 1 puff - Active PRN for sob Procedures Procedure Date OFFICE/OUTPATIENT VISIT, EST OFFICE/OUTPATIENT VISIT, EST OFFICE/OUTPATIENT VISIT, EST OFFICE/OUTPATIENT VISIT, EST OFFICE/OUTPATIENT VISIT, EST OFFICE/OUTPATIENT VISIT, EST OFFICE/OUTPATIENT VISIT, EST OFFICE/OUTPATIENT VISIT, EST OFFICE/OUTPATIENT VISIT, EST OFFICE/OUTPATIENT VISIT, NEW OFFICE/OUTPATIENT VISIT, EST OFFICE/OUTPATIENT VISIT, EST Advance Directives Directive Yes / No Effective Date File Name No Information Encounters Encounter Description Practice Location Reason(s) For Visit Diagnoses Date Provider Providers Copied on Encounter OFFICE/OUTPA TIENT VISIT, [facility], [address], [place], [place], [address], [place] tel:[phone] [facility] hip pain1 (chief complaint) DM (chief complaint) anemia1 (chief complaint) GERD1 (chief complaint) Iron deficiency anemiaPain in left hipType 2 diabetes mellitus without complicationsGERD w/o esophagitis Oct- 5 Chema Forte [address], [place], [place], [address] , [place]. tel:[phone] [facility], [address], [place], [place], [address], [place] tel:[phone] [facility] No Information Sep- 5 Chema Forte [address], [place], [place], [address] , [place]. tel:[phone] OFFICE/OUTPA TIENT VISIT, [facility], [address], [place], [place], [address], [place] tel:[phone] [facility] hip pain1 (chief complaint) DM (chief complaint) anemia1 (chief complaint) Iron deficiency anemiaType 2 diabetes mellitus without complicationsPain in left hip Sep- 5 Chema Forte [address], [place], [place], [address] , [place]. tel:[phone] Referring Provider: Rio Bear [address], [place], [place], [address]. tel:[phone] OFFICE/OUTPA TIENT VISIT, [facility], [address], [place], [place], [address], [place] tel:[phone] [facility] hip pain1 (chief complaint) DM (chief complaint) anemia1 (chief complaint) Type 2 diabetes mellitus without complicationsAnemia Cellulitis of left lower limb Fe 5 Chema Pate. [address], [place], [place], [address] , [place]. tel:[phone] Referring Provider: Rio Bear, [address], [place], [place], [address]. tel:[phone] OFFICE/OUTPA TIENT VISIT, [facility], [address], [place], [place], [address], [place] tel:[phone] [facility] hip pain1 (chief complaint) sob (chief complaint) GERD1 (chief complaint) Centrilobular emphysemaCellulitis of left lower limbGERD w/o esophagitis 5 Chema Pate. [address], [place], [place], [address] , [place]. tel:[phone] Referring Provider: Virginia Clement [address], [place], [place], [address]. tel:[phone] OFFICE/OUTPA TIENT VISIT, [facility], [address], [place], [place], [address], [place] tel:[phone] [facility] hip pain1 (chief complaint) sob (chief complaint) Chronic pain syndromeCentrilobul ar emphysema 4 Chema Pate. [address], [place], [place], [address] , [place]. tel:[phone] Referring Provider: Virginia Clement [address], [place], [place], [address]. tel:[phone] OFFICE/OUTPA TIENT VISIT, [facility], [address], [place], [place], [address], [place] tel:[phone] [facility] hip pain1 (chief complaint) sob1 (chief complaint) Centrilobular emphysemaChronic pain syndromeCellulitis of left lower limb 4 Chema Forte [address], [place], [place], [address] , [place]. tel:[phone] Referring Provider: Virginia Clement [address], [place], [place], [address]. tel:[phone] OFFICE/OUTPA TIENT VISIT, [facility], [address], [place], [place], [address], [place] tel:[phone] [facility] shingle1 (chief complaint) hip pain1 (chief complaint) sob1 (chief complaint) Centrilobular emphysemaChronic pain syndromeZoster without complicationsEncoun ter for screening for malignant neoplasm of colon 4 Chema Forte [address], [place], [place], [address] , [place]. tel:[phone] Referring Provider: Virginia Clement [address], [place], [place], [address]. tel:[phone] OFFICE/OUTPA TIENT VISIT, [facility], [address], [place], [place], [address], [place] tel:[phone] [facility] cough1 (chief complaint) hip pain1 (chief complaint) Pain in left hipAcute bronchitis [address], [place], [place], [address] , [place]. tel:[phone] Referring Provider: Virginia Clement [address], [place], [place], [address]. tel:[phone] OFFICE/OUTPA TIENT VISIT, [facility], [address], [place], [place], [address], [place] tel:[phone] [facility] hip pain1 (chief complaint) DM (chief complaint) tobacco1 (chief complaint) Pain in left hipType 2 diabetes mellitus without complicationsTobacc o use 4 Chema Forte [address], [place], [place], [address] , [place]. tel:[phone] Referring Provider: Virginia Clement [address], [place], [place], [address]. tel:[phone] OFFICE/OUTPA TIENT VISIT, [facility] [place], [address], [place], [place], [address], [place] tel:[phone] [facility] sepsis1 (chief complaint) weight loss1 (chief complaint) anxiety1 (chief complaint) Type 2 diabetes mellitus without complicationsPain in left hipGeneralized Anxiety DisorderCentrilobul ar emphysemaSepsisAbno rmal weight loss 4 Chema Pate. [address], [place], [place], [address] , [place]. tel:[phone] Referring Provider: Virginia Clement [address], [place], [place], [address]. tel:[phone] OFFICE/OUTPA TIENT VISIT, [facility], [address], [place], [place], [address], [place] tel:[phone] [facility] chronic pain (chief complaint) anxiety (chief complaint) Dietary surveillance and counselingChest Pain, UnspecifiedGenerali zed anxiety disorder 3 Chema Forte [address], [place], [place], [address] , [place]. tel:[phone] Referring Provider: Virginia Clement [address], [place], [place], [address]. tel:[phone] OFFICE/OUTPA TIENT VISIT, [facility], [address], [place], [place], [address], [place] tel:[phone] [facility] back pain (chief complaint) chest pain (chief complaint) anxiety (chief complaint) Dietary surveillance and counselingChest TightnessLumbagoEre ctile DysfunctionGenerali zed anxiety disorder 2 Chema Pate. [address], [place], [place], [address] , [place]. tel:[phone] Referring Provider: Virginia Clement [facility] [address], [place], [place], [address]. tel:[phone] Family History Family Member Type Diagnosis Age At Onset Sister Problem (finding) Alive and well Father Problem (finding) Unknown Disease Mother Problem (finding) Alive and well Payers Payer name Insurance type Covered libertarian ID Lee lacy(s) [facility] [id number] Social History Type Description Quantity Date Captured Comments Alcohol Use Details No Caffeine Use Details Unknown Tobacco Use Status Smoking Status Heavy tobacco smoker Sex Male Vital Signs Date / Time: Height Weight BMI Pulse Rate Blood Pressure Temperature Respiratory Rate Body Surface Area Head Circumference BMI percentile Pulse Ox Inhaled Ox 4:45 PM 68.00 in 149.40 lbs 22.7 2 kg/m eter (2) 93 /min 130/80 mm[Hg] 97.9 F 16 /min Chief Complaint And Reason For Visit From encounter dated '11/06/2024 16:41'. hip pain1 (chief complaint). Description: Pt has chronic left hip pain s/p left hip replacement with infection Pt is seeing ortho and he is on doxycycline currently. Pt needs pain meds refilled Pt denies any fever DM (chief complaint). Description: Pt has DM Pt is on 10 units lantus and his glucose is around 185-200 anemia1 (chief complaint). Description: Pt has iron deficiency anemia Pt denies any bleeding Pt hasapp with GI for endoscopy in 3 weeks Pt has not heard from hematology yet Pt is noncompliant with lab work GERD1 (chief complaint). Description: Pt has chronic GERD Pt doing ok with omeprazole .Pt needs it refilled Plan Of Treatment Date Type Action Status Referral Ordered: Hematology (related to Iron deficiency anemia) ordered Referral Ordered: Referrals: Hematology. Evaluate and treat ordered Referral Ordered: COLONOSCOPY AND BIOPSY ordered Referral Ordered: CT THORAX W/O DYE ordered History Of Present Illness Encounter Date Complaint History Of Prese nt Illness hip pain1 Pt has chronic l eft hip pain s/p left hip replacement with infection Pt is seeing ortho and he is on doxycycline currently. Pt needs pain meds refilled Pt denies any fever DM Pt has DM Pt is on 10 units lantus and his glucose is around 185-200 anemia1 Pt has iron defi ciency anemia Pt denies any bleeding Pt has amado with GI for endoscopy in 3 weeks Pt has not heard from hematology yet Pt is noncompliant with lab work GERD1 Pt has chronic G ERD Pt doing ok with omeprazole .Pt needs it refilled anemia1 Pt has anemia wi th low MCV. Pt denies any bleeding hip pain1 pt recently was admitted to hospital for infection associated with internal fixation device of left femur. Pt underwent revision of left proximal femur replacement and he is o oral rifampin and IV vancomycin now via PICC line. Pt denies any fever Pt is on oxycodone PRN for pain by ortho. pt denies any drainage DM Pt has DM pt is on metformin and he is using lantus now. he has not been checking his glucose. Pt is a very poor historian. Pt also does not check his glucose. Pt states that his daughter takes care of his medicine. Pt denies any polyuria, polydipsia. 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 Pt denies any polyuria, polydipsia. Pt denies any blurred vision anemia1 Pt has anemia wi th low MCV Pt denies any blood loss. hip pain1 Pt is s/p left h ip replacement and bone resection for myeloma with open reduction with placement of constrained hip joint back in 2022 with recurrent wound infection with open drainage Pt last saw ortho almost one year ago and he failed to follow up with ortho regarding the hip infection. Pt states that left hip is more painful with some purulent drainage from the open wound around left hip scar area. Pt denies any fever. sob pt has chronic s ob due to COPD Pt denies any hemoptyses. pt needs albuterol refilled GERD1 Pt has been havi ng GERD symptoms with nausea and burning feeling around throat recently Pt denies any abd pain. hip pain1 Pt has left hip pain s/p recent surgical repair. Pt currently ambulates with cane. Pt takes percocet PRN for pain pt denies any hip joint redness or warmth. Pt denies any fever. Pt did have left hip infection post replacement surgery. Pt notices acute onset of drainage from the left hip area open wound for several days sob Pt is a chronic tobacco user and she feels sob frequently Pt denies any hemoptysis, cough. Pt wants albuterol refilled Pt is noncompliant with LDCT. Pt uses albuterol multiple times per day hip pain1 Pt has left hip pain s/p recent surgical repair. Pt currently ambulates with cane. Pt takes percocet PRN for pain pt denies any hip joint redness or warmth. Pt denies any fever. Pt did have left hip infection post replacement surgery. Pt notices acute onset of drainage from the left hip area open wound for several days sob1 Pt is a chronic tobacco user and she feels sob frequently Pt denies any hemoptysis, cough. Pt wants albuterol refilled Pt is noncompliant with LDCT. Pt uses albuterol multiple times per day shingle1 Pt c/o acute lef t side chest wall blisters type of rash with pain since two weeks ago. pt denies any fever, chill Pt has been scratching the area with some open skin sores currently. Pt denies any drainage . hip pain1 Pt has left hip pain s/p recent surgical repair. Pt currently ambulates with cane. Pt takes percocet PRN for pain pt denies any hip joint redness or warmth. Pt denies any fever sob1 Pt is a chronic tobacco user and she feels sob frequently Pt denies any hemoptysis, cough. Pt wants albuterol refilled Pt is noncompliant with LDCT Mar-06-2024 cough1 Pt c/o rather se myrtle dry cough for one week. Pt feels sob. Pt feels weak, myalgia. Pt denies any fever or GI symptoms. Pt denies any sore throat Pt denies any sick contact Pt is not vaccinated for influenza, COVID or RSV. Pt states that he coughs all night. He denies any chest pain hip pain1 Pt has left hip pain s/p recent surgical repair. Pt states that hydrocodone made him nauseated Pt states that hospital gave him percocet which worked better for his pain without causing nausea. tobacco1 Pt has 50 pack y ear tobacco pt denies any hemoptysis ,cough Pt does feels sob sometimes DM Pt has newly stuart gnosed DM Pt denies any polyuria, polydipsia. Pt states that he ate a lot of candy recently hip pain1 Pt has chronic l eft hip pain Pt had left hip replaced last year with metal venkatesh and he had infection around left hip recently s/p surgical repair recently Pt currently has drained around left hip area still. pt c/o pain. pt state that norco 5 mg is not helping with his pain weight loss1 pt has lost clos e to 30 pounds since last time I saw him around 10 years ago. Pt denies any nausea, vomiting, appetite loss, early satiety, change of bowel, abd pain, etc anxiety1 Pt has chronic a nxiety. Pt denies any depression or any suicidal or homicidal thought Pt denies any crying spells Pt was taking xanax from psychiatrist until March of last year .Pt has not had any xanax since. Pt states that he no longer needs to take xanax sepsis1 pt recently was admitted to [facility] ICU 4 months ago due to sepsis from MRSA infection, source unknown He had blood culture and Urine culture growing out MRSA. Pt was given IV vancomycin and also flagyl and cefepime. He presented to ER with confusion initially and subsequently he developed respiratory failure and required BIPAP. He also was found to have DM with A1c around 10.6. He was very combative while in hospital. CT of abdomen and pelvis was unremarkable except for asymptomatic gallstone. CTA of chest showed no PE or adenopathy or nodules. Cardiac echo showed EF 55 % with diastolic dysfunction but no vegetations. He did have mild pulmonary edema. He supposed to have TELLY but he left the hospital AMA without completing above test. Pt left AMA despite on oxygen, with positive MRSA blood culture and he was informed potential for but he still left AMA. Remarkably, he is doing fairly well currently. He denies any confusion or any fever, chill or illness. He did have left hip replacement last year with apparently left hip infection and he saw his ortho last week and he appears to have some wound drain left upper leg. He is poor historian. He states that currently he feels well. He just has rather severe left hip pain from recent infection and he wants some pain medication for his hip pain .He denies any fever, chest pain, dizziness, etc. He is a long time smoker and he feels sob sometimes and he wants refill of his albuterol inhalers. Instructions Date Instruction Additional Infor emre Dietary counseling Related to Di etary surveillance counseling Decrease caloric intake Related to Dietary surveillance counseling Dietary counseling Related to Di etary surveillance counseling Decrease caloric intake Related to Dietary surveillance counseling Assessments Type Assessment Date assessment Iron deficiency anemia assessment Pain in left hip assessment Type 2 diabetes mellitus without complications assessment GERD w/o esophagitis Mental Status Date Cognitive Assessment Orientation - [place] ed to time, place, person, situation.
--- OUTSIDE RECORDS SUMMARY | 2024-12-26 14:41 | XMS_ITS | Encounter Summary ---
Author Organization [facility] Address [address] [place] [address] Care Team Providers Care Ux Designer Name Role Phone Unavailable Primary Care Provider Unavailabl e Encounter Details Date Type Department Care Team (Late st Contact Info) Description 12/26/2024 1:30 PM CDT Office Visit [facility] Oncology and Hematology - [place] [address] [facility] [address] [place] [address] Antonio Barcenas MD [address] [place] [address] Chronic anemia (Primary Dx); 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) Social History Tobacco Use Types Packs/Day Years Used Date Smoking Tobacco: Every Day Cigarettes 1 50 Started: 12/26/1974 Smokeless Tobacco: Never Tobacco Cessation:Ready to Q uit: Not Asked; Counseling Given: Not Answered Alcohol Use Standard Drinks/Week Comments Not Currently 0 (1 standard drink = 0.6 oz pur e alcohol) Sex and Gender Information Value Date Recorded Sex Assigned at Not on file Legal Sex Male 1:47 PM CDT Gender Identity Not on file Sexual Orientation Not on file documented as of this encounter Last Filed Vital Signs Vital Sign Reading Time Taken Comments Blood Pressure 139/74 12/26/2024 1:38 PM CDT Pulse 105 12/26/2024 1:38 PM CDT Temperature 36.6 C (97.8 F) 12/26/2024 1:38 PM CDT Respiratory Rate 16 12/26/2024 1:38 PM CDT Oxygen Saturation 97% 12/26/2024 1:38 PM CDT Inhaled Oxygen Concentration - - Weight 66.7 kg (147 lb) 12/26/2024 1:38 PM CDT Height 172.7 cm (5' 8) 12/26/2024 1:38 PM CDT Body Mass Index 22.35 12/26/2024 1:38 PM CDT documented in this encounter Plan of Treatment Upcoming Encounters Date Type Department Care Team (Late st Contact Info) Description 01/09/2025 4:30 PM CDT Telephone Check Up [facility] Oncology and Hematology - [place] [address] [facility] [address] [place] [address] Antonio Barcenas MD [address] [facility] [address] [place] [address] Scheduled Orders Name Type Priority Associated Diagnoses Orde r Schedule CBC WITH DIFFERENTIAL Lab Stat Chronic anemia Expected: 12/26/2024, Expires: 12/26/2025 COMPREHENSIVE METABOLIC PANEL Lab Stat Chronic anemia Expected: 12/26/2024, Expires: 12/26/2025 FERRITIN Lab Routine Chronic anemia Expected: 12/26/2024, Expires: 12/26/2025 IRON, TIBC, AND PERCENT SATURATION Lab Routine Chronic anemia Expected: 12/26/2024, Expires: 12/26/2025 LACTATE DEHYDROGENASE Lab Routine Chronic anemia Expected: 12/26/2024, Expires: 12/26/2025 METHYLMALONIC ACID Lab Routine Chronic anemia Expected: 12/26/2024, Expires: 12/26/2025 TRANSFERRIN RECEPTOR TFR SOLUBLE Lab Routine Chronic anemia Expected: 12/26/2024, Expires: 12/26/2025 VITAMIN B12 AND FOLATE Lab Routine Chronic anemia Expected: 12/26/2024, Expires: 12/26/2025 IMMUNOGLOBULINS IGG IGA IGM Lab Routine 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
--- OUTSIDE RECORDS SUMMARY | 2024-12-26 14:41 | XMS_ITS | Clinical Summary ---
Author Organization [facility] Gabriel bryant Brinda Address [address] [place] [address] Care Team Providers Care Shift Production Supervisor Name Role Phone Unavailable Primary Care Provider Unavailabl e Allergies No known active allergies Medications acetaminophen (TYLENOL) 500 mg Capsule Take 1,000 mg by mouth. 5 Active albuterol sulfate HFA 90 mcg/actuation aerosol inhaler Take 1 Puff by inhalation. 4 Active aspirin (ECOTRIN EC) 81 mg Tablet, Delayed Release (E.C.) Take 81 mg by mouth 2 times daily. 5 Active doxycycline hyclate (VIBRAMYCIN) 100 mg capsule Take 100 mg by mouth 2 times daily. 5 Active insulin glargine (LANTUS) 100 unit/mL pen syringe Inject 10 Units by subcutaneous injection daily. 5 Active metFORMIN (GLUCOPHAGE) 1,000 mg tablet Take 1,000 mg by mouth 2 times daily. 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) from Last 3 Months Family History Medical History Relation Name Comments No Known Problems Brother No Known Problems Child 1 No Known Problems Child 2 No Known Problems Child 3 No Known Problems Child 4 No Known Problems Father No Known Problems Mother No Known Problems Sister Relation Name Status Comments Brother Alive Child 1 Alive Child 2 Alive Child 3 Alive Child 4 Alive Father Mother Alive Sister Alive Social History Tobacco Use Types Packs/Day Years [...] on file Sexual Orientation Not on file Last Filed Vital Signs Vital Sign Reading [...] Mass Index 22.35 12/26/2024 1:38 PM CDT Plan of Treatment Upcoming Encounters Date Type Department Care Team (Late st Contact Info) Description 01/09/2025 4:30 PM CDT Telephone Check Up [facility] Oncology and Hematology - [place] [address] [facility] [address] [place] [address] Antonio Barcenas MD [address] [facility] [address] [place] [address] Health Maintenance Due Date Last Done Comments DTAP/TDAP/TD VACCINES (1 - Tdap) 1976 FIT-DNA Q 3 years 2002 FIT/FOBT Q 1 year 2002 Flex Sig/CT Colonography Q 5 years 2002 PNEUMOCOCCAL VACCINE 50+ YEA RS (1 of 1 - PCV) 12/15/2007 ZOSTER VACCINE (1 of 2) 12/15/2007 INFLUENZA VACCINE (#1) 2024 Medicare Advantage (SD) Prev entative Visit/Annual Wellness Visit 08/02/2024 COLORECTAL SCREENING 04/10/2030 04/10/2020, 04/10/2020, 08/25/2019 Colorectal Cancer Screening 04/10/2030 RSV VACCINE (60+ or ) (1 - 1-dose 75+ series) 2032 Insurance [facility]TE [facility] [id number]
--- OUTSIDE RECORDS SUMMARY | 2024-12-26 14:42 | XMS_ITS | Clinical Summary ---
Author Organization [facility] Address [address] [place] [address] Care Team Providers Care Weight Caller Name Role Phone Reinier Martinez MD PhD Unavailable [phone] Sheridan Yusuf MD Unavailable [phone] Olu Martin MD Unavailable [phone] Olimpia Beavers MD Unavailable [phone] Rio Bear MD Primary Care Provider [phone] Allergies No known active allergies Medications albuterol HFA (PROVENTIL HFA,VENTOLIN HFA,PROAIR HFA) 90 mcg/actuation inhalerIndicati ons:Chronic Obstructive Pulmonary Disease Inhale 1 puff as needed 4 Active blood-glucose meter kit Use as directed. 1 kit 5 Active lancets miscIndications :DM Use as directed up to 4 times a day. 100 each 1 5 Active blood glucose diagnostic stripIndication s:DM 1 each by other route as directed 100 strip 11 5 026 Active sodium chloride 0.9% injection Administer 10-40 mL into catheter every 12 (twelve) hours 5 Active sodium chloride 0.9% injection Administer 10-20 mL into catheter as needed for line care 5 Active heparin 10 unit/mL syringeIndicati ons:Maintain Patency of Indwelling Vascular Catheter Administer 2-5 mL (20-50 Units total) into catheter as needed (with each use) 5 Active heparin 10 unit/mL syringeIndicati ons:Maintain Patency of Indwelling Vascular Catheter Administer 5 mL (50 Units total) into catheter every 12 (twelve) hours 5 Active acetaminophen 500 mg capsule Take 2 capsules (1,000 mg total) by mouth every 6 (six) hours 90 tablet 5 Active aspirin 81 mg enteric coated tabletIndicatio ns:Deep Vein Thrombosis Prevention Take 1 tablet (81 mg total) by mouth 2 (two) times a day 60 tablet 5 Active methocarbamoL (ROBAXIN) 500 mg tabletIndicatio ns:Muscle Spasm Take 1 tablet (500 mg total) by mouth 3 (three) times a day as needed for muscle spasms 60 tablet 5 Active senna-docusate (PERICOLACE) 8.6-50 mgIndications:c onstipation Take 2 tablets by mouth 2 (two) times a day 60 tablet 5 Active insulin lispro (ADMELOG) 100 unit/mL pen for injectionIndica tions:type 2 diabetes mellitus Inject 4 Units under the skin 3 (three) times a day with meals 15 mL 1 5 Active pen needle, diabetic 32 gauge x 5/32 needleIndicatio ns:DM Use as directed 3 times a day. 100 each 5 Active metFORMIN (GLUCOPHAGE) 1,000 mg tabletIndicatio ns:type 2 diabetes mellitus Take 1 tablet (1,000 mg total) by mouth 2 (two) times a day with meals 60 tablet 1 5 Active insulin glargine 100 unit/mL (3 mL) pen for injectionIndica tions:Diabetes Mellitus Inject 10 Units under the skin daily Active doxycycline hyclate 100 mg capsule 5 Active oxyCODONE (ROXICODONE) 5 mg immediate release tabletIndicatio ns:Pain Take 1 tablet (5 mg total) by mouth every 4 (four) hours as needed for pain for up to 42 doses 42 tablet 5 Active rifAMPin (RIFADIN) 300 mg capsuleIndicati ons:Bone/Joint Infection Take 1 capsule (300 mg total) by mouth 2 (two) times a day 176 capsule 5 025 oxyCODONE-aceta minophen (PERCOCET) 5-325 mg per tablet Take 1 tablet by mouth 2 (two) times a day as needed 5 025 Discontinu ed(Patient Reported) oxyCODONE (ROXICODONE) 5 mg immediate release tabletIndicatio ns:Pain Take 1 tablet (5 mg total) by mouth every 4 (four) hours as needed for pain for up to 42 doses 42 tablet 5 Discontinu ed(Reorder ) Active Problems Problem Noted Date Diagnosed Date Joint prosthesis infection or inflammation, sequ lester 09/14/2024 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 He was recommended surgery, was admitted to [facility] on 09/14/24 and underwent Removal of Left Proximal Femur Instrumentation, Irrigation and Debridement, Revision Left Proximal Femur Replacement. OR cultures positive for MRSA. Postoperatively he was started on vancomycin and cefepime, narrowed to vancomycin on 09/17/24. Rifampin added on 09/18/24. Recommending to treat Left femur hardware associated infection with 6 weeks (09/14/24-10/26/24) of IV vancomycin and 3 months (09/18/24-12/16/24) of PO rifampin. After initial 6 weeks of IV vancomycin treatment will plan to suppress for life with doxycycline given high risk reconstructive surgery. Patient is overall doing well and wound is healing nicely, however has substantial health disparity which necessitates close follow up. - APRIL HONG discussed resources with patient in clinic today. - he has now completed total 4 weeks IV Vancomycin. Will DC PICC and IV antibiotic and transition to doxycyline 100 mg BID on 10/12/24 for chronic PO suppression given retained hardware and high risk reconstructive surgery. - continue Rifampin for total 3 months, EOT 12/16/24. - 10/10/24 labs reviewed. - I discussed with the patient my impression, the imaging findings, and treatment plan in detail with a focus on the etiology, natural history, and management of symptoms. - I discussed with the patient the rationale for treatment, culture results, risk of recurrent infection, signs/symptoms of recurrent infection, and to contact ID clinic with any questions or concerns. Assessment & Plan (09/18/2024 4:14 PM CONCRETE BUCKET LOADER): Mr.Carl Amezquita is a 67 y.o. 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 OR cultures grew MRSA. He was treated with vancomycin and rifampin for 6 weeks followed by doxycycline suppression. However his hip dislocated in 07/2023 and on 07/11/23 he underwent exchange of the left hip hemiarthroplasty components with insertion of new components on the proximal femoral stem along with reconstruction of abductor muscle tissues without concern for infection. He was followed in ortho clinic and was found to have another dislocation with pain and difficulty ambulating. On 07/23/23 he underwent revision left proximal femur replacement and left acetabular reconstruction with a constrained liner. OR cultures were obtained but were negative. Due to concern for infection (dark fluid in OR) he was discharged with iv vancomycin and cefepime for 6 weeks to be completed by 09/03/23. However, on 08/09/23 patient experienced an episode of passing out while receiving vancomycin and his had to do CPR. He regained consciousness and did not want to continue iv antibiotics. IV antibiotics were discontinued and he was started or oral doxycycline and amox-clav. After that he never followed up with ID clinic. In 10/2023 he followed up with Ortho with c/o open wound with purulent drainage. He was offered surgery due to concern for infection but patient refused. He lost to follow up until 08/25/24 and was noted to have open wound with drainage for several months. He was recommended surgery, was admitted to [facility] on 09/14/24 and underwent Removal of Left Proximal Femur Instrumentation, Irrigation and Debridement, Revision Left Proximal Femur Replacement. OR cultures positive for MRSA. Postoperatively he was started on vancomycin and cefepime, narrowed to vancomycin on 09/17. Rifampin added on 09/18. Patient's has offered to help administer IV vancomycin twice daily. His daughter lives with him but we were unable to reach her. Recommending to treat Left femur hardware associated infection with 6 weeks (09/14/24-10/26/24) of IV vancomycin and 3 months (09/18/24-12/16/24) of PO rifampin. After initial 6 weeks of IV treatment with plan to suppress for life with doxycycline given high risk reconstructive surgery. 09/11/2024- ESR 71 and CRP was 9.4 Recommendations: Continue IV vancomycin 1gm Q12hrs. Check vanc trough before the 4th dose with goal of 10-20. Start rifampin 300mg PO BID (ordered) Monitor minimum weekly CBC w/ diff and CMP's ID is foramlly signing off but will continue to monitor patient peripherally while inpatient. Recommending to treat Left femur hardware associated infection with 6 weeks (09/14/24-10/26/24) of IV vancomycin and 3 months (09/18/24-12/16/24) of PO rifampin. After initial 6 weeks of IV vancomycin will plan to suppress. Infection and inflammatory r eaction due to internal left hip prosthesis, subsequent encounter 10/28/2023 Wound dehiscence 10/28/2023 Closed anterior dislocation of distal end of left femur, initial encounter 07/27/2023 Closed dislocation of left hip, sequela 07/23/20 23 Type 2 diabetes mellitus without complication Overview (07/23/2023): Pending further evaluation. Diabetes probable type 2, evaluation pending. Prediabetes or diabetes 2018 (6.2% HbA1C) Onset in last few years. Fasting glucose 178mg.dl with PET 12 Sep 2020) No FH Normal pancreatic imaging 2018. No significant alcohol history microvascular complications Right foot decrease low-amplitude low frequency vibratory sensation - re-test post recovery from anesthesia. No known macrovascular complications, though mild atherosclerotic disease of aorta on imaging. 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 male with h/o recent left hip PJI with MRSA s/p 6 weeks of vancomycin and rifampin followed by doxycycline suppression who is presenting for recurrent infection s/p washout and exchange of plastic components on 07/23/2023. OR cultures were taken which are NGTD. He most likely has MRSA infection again, as it sounds like he was not adherent to the doxycycline suppression, however as he had repeat surgery he could have another pathogen. Will plan on treating with broad spectrum antibiotics for 6 weeks then likely narrow to MRSA coverage for suppression. Recommendations: - Continue vancomycin 1gm IV q 12 hours, check vanc trough before the 4th dose with goal of 15-20 (due this morning) - Continue cefepime 2gm IV q 12 hours - Okay by ID to place PICC line for longwall shearer operator IV antibiotics - Check CBC w/ diff once weekly, BMP twice weekly, LTT's once weekly, Vanc trough twice weekly - ID is formally signing off but will continue to monitor patient peripherally while in house. Recommending to treat left hip PJI with 6 weeks (07/23/23-09/13/23) of IV vancomycin and IV cefepime to be followed with PO suppression. Please see sign off note from 07/27 for complete recommendations. Assessment & Plan (04/20/2023 3:45 PM CDT): Alex Amezquita is a 67 y.o. 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 On admission he was febrile to 39.4 and HDS. Labs without leukocytosis, CRP 201 and ESR 84. Blood cultures NGTD. CT pelvis and LLE showed L proximal femoral endoprosthetic reconstruction with surrounding enhancing large gas and fluid collection concerning for abscess and adjacent L thigh cellulitis, possible communication of fluid collection with hip joint. He underwent IR hip aspiration on 04/15 and 04/16, fluid purulent with >50k nuc cells 100% carla, cultures pending. Given concern for PJI he was taken to OR on 04/17 for I&D and found to have gross purulence at L proximal femoral replacement. OR cultures are positive for MRSA. Recommendations: - continue vancomycin 1gm IV q 12hrs, vanc trough therapeutic 16 - will add rifampin 300 mg BID - Ok for PICC line placement, plan for 6 weeks of IV antibiotics followed by PO suppression - check CBC w/diff and BMP twice weekly, CMP weekly - ID will sign off Cellulitis of left lower extremity 04/15/2023 Encounter for colonoscopy following colon polyp removal 03/21/2020 Overview (03/21/2020): Added automatically from request for surgery [id number] History of colon polyps 01/18/2020 Overview (01/18/2020): Added automatically from request for surgery [id number] Abnormal gastrointestinal PET scan 08/04/2019 Overview (08/04/2019): Added automatically from request for surgery [id number] Polyp of colon 08/04/2019 Overview (08/04/2019): Added automatically from request for surgery [id number] senior living (current) use of opiate analgesic 03/02 Chronic post-operative pain-Lt leg 11/15/2018 H/O total hip arthroplasty, left 10/07/2018 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 Patient reports normally having 1/week P: -Senna-doc 50-8.6 4 pills BID -Miralax 17g qD -Mag citrate daily Pathological fracture of left femur 05/17/2018 Assessment & Plan (05/24/2018 8:34 AM CDT): A: no evidence of osteoporosis, has a large lytic lesion of the L femur. Concerning for primary bone malignancy (eg: chondrosarcoma) vs. Metastatic malignancy (prostate cancer, multiple myeloma, lung cancer). Lack of prostatic mass on CT A/P lowers concern for prostate cancer, high K:L serum FLC ratio 99.25 increases concern for multiple myeloma. Pathology asking hematology to examine slides due to concern that cells appear hematologic in origin. Showed atypical plasma cells. P: -Biopsy pathology - atypical plasma cells -ESR 14, Calcium 9.5, Phosphorus 3.5 -PSA 2.6 -SPEP - no M spike, UPEP - pending -Serum free light chain - kappa 133, nicholas 1.34, ratio 99 -NM Bone scan - disease appears limited to L femur -Skeletal survey - no lytic lesions outside of L femur -L femur MRI w/ contrast - enhancing, marrow replacing lesion of L femur w/ soft tissue extension -CT chest PE protocol - showed only 3 mm nodule -CXR, EKG for pre-operative assessment were normal, IPAP evaluation complete -Bone marrow biopsy/aspiration - results pending -Pain management - tylenol 650 mg q4h, starting Oxy-ER 15 mg BID, reduce oxycodone 10 mg q4h PRN to q6h PRN -Ortho: planning reconstructive surgery of femur on 05/27 -RadOnc: recommend postoperative radiation if bone marrow negative for MM -Hematology on board -Dispo: home today, will come back for surgery on 05/27 DVT (deep venous thrombosis) 05/17/2018 Assessment & Plan (05/24/2018 8:34 AM CDT): A: found to have non-occlusive DVT in L common femoral vein in setting of likely malignancy and immobility secondary to fracture. BL LED showed free floating clot in vein. No SOB. Previous negative CT PE. 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, initial encounter (HCC); H/O total hip arthroplasty, left Discharge Disposition: Discharge to home or self care 12/15/2024 1:30 PM CDT Office Visit [facility] Orthopaedic Surgery [address] [place] [address] 6th [place] [address] Joey Richardson MD 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, subsequent encounter (Primary Dx); H/O total hip arthroplasty, left 12/13/2024 Orders Only [facility] Orthopaedic Surgery [address] [place] [address] 6th [place] [address] Joey Richardson MD 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, initial encounter (HCC) (Primary Dx); H/O total hip arthroplasty, left 11/14/2024 Home Care Visit [address] [place] [address] Michael Virgen, PT PT VIRTUAL OASIS DISCHARGE 11/02/2024 12:00 PM CDT Home Care Visit [address] [place] [address] Soco Jorgensen, RN SN DISCIPLINE DISCHARGE 11/02/2024 Home Care Visit [address] [place] [address] Dominguez Blanton, [facility] CASE COMMUNICATION 10/31/2024 8:30 AM CDT Home Care Visit [address] [place] [address] Soco Jorgensen, [facility] SN HOME VISIT 10/28/2024 10:00 AM CDT Home Care Visit [address] [place] [address] Naa Siddiqui LPN SN HOME VISIT 10/27/2024 3:30 PM CDT Home Care Visit [address] [place] [address] Marleen Gomez, OT OT DISCIPLINE DISCHARGE 10/27/2024 Home Care Visit [address] [place] [address] Marleen Gomez, OT CASE COMMUNICATION 10/23/2024 11:00 AM CDT Home Care Visit [address] [place] [address] Soco Jorgensen, RN SN HOME VISIT 10/19/2024 10:00 AM CDT Home Care Visit [address] [place] [address] Dominguez Blanton [facility] PAPER FINISHER INITIAL EVAL 10/19/2024 9:30 AM CDT Home Care Visit [address] [place] [address] Soco Jorgensen, [facility] SN HOME VISIT 10/19/2024 Home Care Visit [address] [place] [address] Dominguez Blanton [facility] PAPER FINISHER DISCIPLINE DISCHARGE 10/19/2024 Home Care Visit [address] [place] [address] Dominguez Blanton [facility] CASE COMMUNICATION 10/18/2024 2:00 PM CDT Home Care Visit [address] [place] [address] Almaz Schulte, FRINGE MAKER PT HOME VISIT 10/17/2024 SHOP/CHAP Subsequent Outreach [facility] OP CASE MANAGEMENT [address] [place] [address] Carla Casillas RN 10/17/2024 Documentation [facility] Infectious Diseases [address] [place] [address] [place] [phone] Johnny Riley Jr., [facility] 10/17/2024 Home Care Visit [address] [place] [address] Dominguez Blanton, [facility] CASE COMMUNICATION 10/17/2024 Telephone [facility] Infectious Diseases [address] [place], [place] [phone] Brigitte Biswas, JONATHAN 10/16/2024 12:00 PM CDT Home Care Visit [address] [place] [address] Soco Jorgensen, RN SN HOME VISIT 10/13/2024 1:00 PM CDT Home Care Visit [address] [place] [address] Ashley Claire COTA OT HOME VISIT 10/13/2024 11:00 AM CDT Home Care Visit [address] [place] [address] Soco Jorgensen, RN SN HOME VISIT 10/13/2024 SHOP/CHAP Subsequent Outreach [facility] OP CASE MANAGEMENT [address] [place] [phone] Jayshree Curtis, [facility] 10/12/2024 Telephone [facility] Infectious Diseases [address] [place], [place] [phone] Doris Deshpande, [facility] 10/12/2024 Documentation [facility] Infectious Diseases [address] [place], [place] [phone] Tamia Sheehan, [facility] Social Work 10/11/2024 2:40 PM CDT Office Visit [facility] Infectious Diseases [address] [place] [phone] Ana M Warren, JUDY 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, initial encounter 10/11/2024 12:10 PM CDT Office Visit [facility] Orthopaedic Surgery [facility] 6th Floor [address] [place] [phone] Joey Richardson MD H/O total hip arthroplasty, left (Primary Dx) 10/11/2024 12:00 PM CDT - 10/11/2024 11:59 PM CDT Hospital Encounter [facility] [address] [place] [address] Joey Richardson MD H/O total hip arthroplasty, left Discharge Disposition: Discharge to home or self care 10/11/2024 Orders Only [facility] [address] [place] [phone] Ericka Copeland, [facility] 10/11/2024 Telephone [facility] Infectious Diseases [address] [place] [address] [address] [place] [address] Johnny Riley Jr., [facility] 10/11/2024 Documentation [facility] Infectious Diseases [address] [facility] [address] [place] [address] Johnny Riley Jr., [facility] 10/11/2024 Home Care Visit [address] [place] [address] Dominguez Blanton, [employer] CASE COMMUNICATION 10/10/2024 9:44 AM CDT - 10/10/2024 11:59 PM CDT Hospital Encounter [address] [address] Discharge Disposition: Discharge to home or self care 10/10/2024 9:30 AM CDT Home Care Visit [address] [place] [address] Soco Jorgensen, [facility] SN HOME VISIT 10/09/2024 9:55 AM CDT - 10/09/2024 11:59 PM CDT Hospital Encounter [address] [address] Discharge Disposition: Discharge to home or self care 10/09/2024 9:30 AM CDT Home Care Visit [address] [place] [address] Soco Jorgensen, [facility] SN HOME VISIT 10/09/2024 Home Care Visit [address] [place] [address] Zoya Bazan, RN SN TRIAGE ENCOUNTER 10/09/2024 Orders Only [facility] Orthopaedic Surgery [address] [facility] 6th [place] [phone] Joey Richardson MD H/O total hip arthroplasty, left (Primary Dx) 10/07/2024 Documentation [facility] Infectious Diseases [address] [facility] [address] [place] [address] Huseyin Arauz MD 10/06/2024 9:31 AM CONCRETE BUCKET LOADER - 10/06/2024 11:59 PM CONCRETE BUCKET LOADER Hospital Encounter [facility] [address] [place], [place] [phone] Discharge Disposition: Discharge to home or self care 10/06/2024 9:30 AM CONCRETE BUCKET LOADER Home Care Visit [address] [place] [address] Anjali Wayne SN HOME VISIT 10/05/2024 1:00 PM CONCRETE BUCKET LOADER Home Care Visit [address] [place] [address] Desiree Yoo OT OT HOME VISIT 10/05/2024 12:30 PM CONCRETE BUCKET LOADER Home Care Visit [address] [place] [address] Michael Virgen, PT CASE COMMUNICATION 10/05/2024 SHOP/CHAP Subsequent Outreach [facility] OP CASE MANAGEMENT [address] [place] [phone] Jayshree Curtis LCSW 10/04/2024 Home Care Visit [address] [place] [address] Michael Virgen, PT PT INITIAL EVALUATION 10/04/2024 Orders Only [facility] [address] [place] [address] [address] [place] [phone] Ericka Copeland [facility] 10/04/2024 Orders Only [facility] Infectious Diseases [address] [facility] [address] [place] [phone] Johnny Riley Jr., RN 10/04/2024 Orders Only [facility] Infectious Diseases [address] [facility] [address] [place] [phone] Timbo Harris MD Infection of prosthetic hip joint, subsequent encounter (Primary Dx); Unable to obtain electricity in residence due to limited financial resources 10/04/2024 Documentation [facility] Infectious Diseases [address] [phone] Johnny Riley Jr., RN 10/04/2024 Telephone [facility] Infectious Diseases [address] [place] [phone] Johnny Riley Jr., RN 10/02/2024 9:47 AM CONCRETE BUCKET LOADER - 10/02/2024 11:59 PM CONCRETE BUCKET LOADER Hospital Encounter [facility] [address] [place] [address] Discharge Disposition: Discharge to home or self care 10/02/2024 9:30 AM CONCRETE BUCKET LOADER Home Care Visit [address] [address] [place] [address] Soco Jorgensen, HAMMAD SN HOME VISIT 10/02/2024 Documentation [facility] Infectious Diseases [address] [id number] Johnny Riley Jr., RN 10/01/2024 Home Care Visit [address] [place] [address] Michael Virgen PT TELEPHONE ENCOUNTER 09/29/2024 1:45 PM CONCRETE BUCKET LOADER Office Visit [facility] Orthopaedic Surgery [facility] 6th [place] [address] [place] [address] Joey Richardson MD 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, subsequent encounter (Primary Dx); H/O total hip arthroplasty, left; Infection and inflammatory reaction due to internal left hip prosthesis, subsequent encounter; Recurrent dislocation of left hip; Infection of prosthetic hip joint, initial encounter; Plasma cell neoplasm; Closed dislocation of left hip, initial encounter ([facility]) 09/29/2024 1:30 PM CONCRETE BUCKET LOADER - 09/29/2024 11:59 PM CONCRETE BUCKET LOADER Hospital Encounter [facility] [address] [place] [id number] H/O total hip arthroplasty, left Discharge Disposition: Discharge to home or self care 09/29/2024 SHOP/CHAP Subsequent Outreach [facility] CASE MANAGEMENT [address] [facility] [place] [address] Jayshree Curtis LCSW 09/28/2024 9:49 AM CONCRETE BUCKET LOADER - 09/28/2024 11:59 PM CONCRETE BUCKET LOADER Hospital Encounter [facility] [address] [place] [address] Discharge Disposition: Discharge to home or self care 09/28/2024 9:30 AM CONCRETE BUCKET LOADER Home Care Visit [facility] [address] [address] [address] [place] [address] Soco Jorgensen, RN SN HOME VISIT 09/28/2024 Telephone [facility] Infectious Diseases 620 [facility] [address] [place] [phone] Johnny Riley Jr., RN 09/28/2024 Orders Only [facility] Orthopaedic Surgery [address] [place] [address] [facility] 6th [place] [address] [place] [address] Joey Richardson MD H/O total hip arthroplasty, left (Primary Dx) from Last 3 Months Surgical History Surgery Date Site/Laterality Comments WRIST SURGERY BIOPSY DEEP BONE 05/17/2018 N/A TOTAL HIP ARTHROPLASTY 08/02/2017 - 08/01/2018 Left resection repair proximal femur and soft tissues COLONOSCOPY FLUORO GUIDED ASPIRATION OR INJECTION LARGE JOINT LEFT 04/15/2023 Left FLUORO GUIDED ASPIRATION OR INJECTION LARGE JOINT LEFT 04/16/2023 Left Medical History Medical History Date Comments Closed fracture of sternum 12/31/2010 DVT of deep femoral vein, left ([facility]) 05/17/2018 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 Diabetes probable type 2, evaluation pending. a. Prediabetes or diabetes 2017 (6.2% HbA1C) b. Onset in last few years. Fasting glucose 178mg.dl with PET 12 Sep 2020) c. No FH d. Normal pancreatic imaging 2018. No significant alcohol history e. microvascular complications f. Right foot decrease low-amplitude low frequency vibratory sensation - re-test po Type 2 diabetes mellitus wit hout complication (HCC) 07/23/2023 Family History Medical History Relation Name Comments Hodgkin's lymphoma Daughter No Known Problems Father Pt denies fhx cancer, hypothyroidism, rheumatoid arthritis No Known Problems Mother Pt denies fhx cancer, hypothyroidism, rheumatoid arthritis Anesthesia problems Neg Hx Relation Name Status Comments Daughter Father Mother Social History Tobacco Use Types Packs/Day Years Used Date Smoking Tobacco: Every Day Cigarettes 1 45 Smokeless Tobacco: Never Tobacco Cessation:Ready to Q uit: Not Asked; Counseling Given: Not Answered Alcohol Use Standard Drinks/Week Comments No 0 (1 standard drink = 0.6 oz pur e alcohol) OASIS D0700: Social Isolation Answer Da te Recorded Frequency of experiencing loneliness or isolatio n Never 11/14/2024 OASIS A1250: Transportation Answer Date Recorded Lack of Transportation (Medical) No 11/14/2024 Lack of Transportation (Non-Medical) No 11/14/2024 Patient Unable or Declines to Respond No 11/14/2024 OASIS B1300: Health Literacy Answer Mitch e Recorded Frequency of needing help to read materials from doctor or pharmacy Never 11/14/2024 [facility] Utilities Answer Date Recorded In the past 12 months has th e [facility], gas, oil, or water [employer] threatened to shut off services in your home? No 09/20/2024 Social Connection and Isolat ion Panel [NHANES] Answer Date Recorded In a typical week, how many times do you talk on the phone with family, friends, or neighbors? More than three times a week 09/20/2024 How often do you get togethe r with friends or relatives? More than three times a week 09/20/2024 How often do you attend chur ch or islam services? Never 09/20/2024 Do you belong to any clubs o r organizations such as jewish groups, unions, fraternal or athletic groups, or school groups? No 09/20/2024 How often do you attend meet ings of the clubs or organizations you belong to? Never 09/20/2024 Are you , , di vorced, , never , or living with a partner? 09/20/2024 AUDIT-C Answer Date Recorded Q1: How often do you have a drink containing alcohol? Never 09/14/2024 Q2: How many drinks containi ng alcohol do you have on a typical day when you are drinking? Patient does not drink Q3: How often do you have si x or more drinks on one occasion? Never 09/14/2024 Overall Financial Resource Strain (CARDIA) Answe r Date Recorded How hard is it for you to pa y for the very basics like food, housing, medical care, and heating? Hard 09/20/2024 PHQ-2 Answer Date Recorded PHQ-2 Total Score 0 07/29/2023 Hunger Vital Sign Answer Date Recorded Within the past 12 months, y ou worried that your food would run out before you got the money to buy more. Sometimes true Within the past 12 months, t he food you bought just didn't last and you didn't have money to get more. Sometimes true PRAPARE - Transportation Answer Date Re corded In the past 12 months, has l ack of transportation kept you from medical appointments or from getting medications? No 09/02 In the past 12 months, has l ack of transportation kept you from meetings, work, or from getting things needed for daily living? No 09/20/2024 Housing Stability Vital Sign Answer Mitch e Recorded In the last 12 months, was t here a time when you were not able to pay the mortgage or rent on time? Yes 07/29/2023 In the last 12 months, how many places have you lived? 1 07/29/2023 In the last 12 months, was t here a time when you did not have a steady place to sleep or slept in a chcf (including now)? No 07/29/2023 Housing Stability Vital Sign Answer Mitch e Recorded In the last 12 months, was t here a time when you were not able to pay the mortgage or rent on time? No 09/20/2024 In the past 12 months, how m any times have you moved where you were living? 0 09/20/2024 At any time in the past 12 m [facility], were you homeless or living in a chcf (including now)? No 09/20/2024 Personal Safety Answer Date Recorded Have you ever been in or are you currently in a harmful physical or emotional relationship or is someone making you feel afraid or unsafe? 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 Gender Identity Not on file Sexual Orientation Not on file Obstetrics History Last Filed Vital Signs Vital Sign Reading Time Taken Comments Blood Pressure 138/84 11/02/2024 1:48 PM CDT Pulse 88 11/02/2024 1:48 PM CDT Temperature 36.8 C (98.3 F) 11/02/2024 1:48 PM CDT Respiratory Rate 18 11/02/2024 1:48 PM CDT Oxygen Saturation 94% 11/02/2024 1:48 PM CDT Inhaled Oxygen Concentration - - Weight 66.2 kg (146 lb) 10/11/2024 3:03 PM CDT Height 172 cm (5' 7.72) 10/11/2024 3:03 PM CDT Body Mass Index 22.39 10/11/2024 3:03 PM CDT Plan of Treatment Health Maintenance Due Date Last Done Comments Albumin Creatinine Ratio, Urine 1955 Hepatitis C Screening 1955 Dilated Eye Exam 1957 Foot Exam 1957 DTaP/Tdap/Td Vaccine (1 - Tdap) 1968 Hepatitis B Screening 12/15/1975 Pneumococcal vaccine 65+ (1 of 2 - PCV) 1976 Zoster Vaccine (1 of 2) 1976 Lung Cancer Screening 12/15/2007 Prostate Cancer Screening-PSA 05/17/2020 05/17/2018 Abdominal Aortic Aneurysm (A AA) Screen 2022 05/17/2018 Well Visit 65+ 2022 Depression Screening 07/20/2024 07/20/2023, 03/17/2019, 12/27/2018, Additional history exists Hemoglobin A1C 03/11/2025 09/11/2024, 07/02, 07/11/2023, Additional history exists Influenza Vaccine (Season Ended) 2025 Lipid Panel 09/15/2025 09/15/2024, 04/15/2023 Fall Risk Assessment 09/19/2025 09/19/2024 eGFR 10/10/2025 10/10/2024, 09/30, 10/06/2024, Additional history exists Colon Cancer Screening-Colonoscopy 04/10/2030 04/10/2020, 08/25/2019 Colon Cancer Screening-CT Colonography Discontinued 04/10/2020, 08/25/2019 Colon Cancer Screening-DNA Stool Discontinued 04/10/20 20, 08/25/2019 Colon Cancer Screening-FIT Discontinued 04/10/2020, Colon Cancer Screening-Sigmoidoscopy Discontinued 04/10/2020, 08/25/2019 Goals Goal Patient Goal Type Associated Problems Recent Progress Patient-Stated? Author [facility] Diamond Patricio RN Note: Patient will establish a comfort-function goal and identify the pain level that will allow the patient to perform desired activities and achieve an acceptable quality of life. Medical Devices Implanted Type Area Can Line Operator Device Identifier Shelf Expiration Date Model / Serial / Lot Bone Cement Implanted:Qty: 2 on 05/27/2018 by Olu Martin MD at [facility] Left: Femur [employer] 09/29/2020 / / [id number] [employer] [id number] Nexgen 350mm Male To Female Taper Knee Tibial Fibula Component - [id number] Implanted:Qty: 1 on 05/27/2018 by Olu Martin MD at [facility] Left: Femur [employer] [id number] 10/30/2026 [id number] / / [id number] [employer] [id number] Nexgen 80mm Male To Female Taper Knee Tibial Fibula Component - [id number] Implanted:Qty: 1 on 05/27/2018 by Olu Martin MD at [facility] Left: Femur [employer] [id number] 04/01/2023 [id number] / / [id number] [employer] [id number] 38mm Segmental Proximal Offset Component Femoral Trabecular Metal - [id number] Implanted:Qty: 1 on 05/27/2018 by Olu Martin MD at [facility] Left: Femur [employer] [id number] 05/01/2028 [id number] / / [id number] [employer] [id number] Nexgen 15mm 130mm Cemented Segmental Knee Femur Straight Flute - [id number] Implanted:Qty: 1 on 05/27/2018 by Olu Martin MD at [facility] Left: Femur [employer] [id number] 04/01/2026 [id number] / / [id number] [employer] [id number] 30mm Collar Knee Component Segmental Trabecular Metal 9-16mm Stem - [id number] Implanted:Qty: 1 on 05/27/2018 by Olu Martin MD at [facility] Left: Femur [employer] [id number] 01/29/2023 [id number] / / [id number] [employer] [id number] Versys Legacy 28mm Hip 0mm 12/14 Taper Head Femoral Zimaloy - [id number] Implanted:Qty: 1 on 05/27/2018 by Olu Martin MD at [facility] Left: Femur [employer] [id number] 03/01/2028 [id number] / / [id number] [employer] [id number] Multipolar 50mm Hip Shell Bipolar Metal - [id number] Implanted:Qty: 1 on 05/27/2018 by Olu Martin MD at [facility] Left: Femur [employer] [id number] 06/01/2023 [id number] / / [id number] [employer] [id number] Versys Ld/Fx 50/51/52mm 28mm Press Fit Cemented Assembly Hip - [id number] Implanted:Qty: 1 on 05/27/2018 by Olu Martin MD at [facility] Left: Femur [employer] [id number] 12/30/2025 [id number] / / [id number] [employer] Option 28mm Hip -3mm 07/15 Small Head Femoral Biolox Delta [id number] - [id number] Implanted:Qty: 1 on 07/11/2023 by Olu Martin MD at [facility] Left: Hip [employer] [id number] 05/01/2029 [id number] / / [id number] [employer] Ringloc Bio-Ku Ii 49mm 28mm 2 Articulate Surface Lock - [id number] Implanted:Qty: 1 on 07/11/2023 by Olu Martin MD at [facility] Left: Hip [employer] [id number] 07/15/2027 / / [id number] [employer] G7 54mm Multihole Hip F Hemisphere Offset Shell Acetabular 793543565 - [id number] Implanted:Qty: 1 on 07/23/2023 by Joey Richardson MD at [facility] Left: Hip [employer] [id number] 06/11/2033 [id number] / / [id number] [employer] Trilogy 6.5mm 25mm Self Tap Screw Bone 74119925884 - [id number] Implanted:Qty: 1 on 07/23/2023 by Joey Richardson MD at [facility] Left: Hip [employer] [id number] 08/21/2032 87461253782 / / [id number] [employer] Liner Acetabular Hip Vitamin E G7 Saco Vivacit E 36mm Polyethylene Size F 27391935 - [id number] Implanted:Qty: 1 on 07/23/2023 by Joey Richardson MD at [facility] Left: Hip [employer] [id number] 05/10/2028 [id number] / / [id number] [employer] Trilogy 6.5mm 25mm Self Tap Screw Bone 23313802547 - [id number] Implanted:Qty: 1 on 07/23/2023 by Joey Richardson MD at [facility] Left: Hip [employer] [id number] 08/14/2032 16608666437 / / [id number] [employer] Trilogy 6.5mm 15mm Self Tap Screw Bone 33830736440 - [id number] Implanted:Qty: 1 on 07/23/2023 by Joey Richardson MD at [facility] Left: Hip [employer] [id number] 03/04/2033 [id number] / / [id number] [employer] Trilogy 6.5mm 20mm Self Tap Screw Bone 90927731710 - [id number] Implanted:Qty: 1 on 07/23/2023 by Joey Richardson MD at [facility] Left: Hip [employer] [id number] 10/16/2032 [id number] / / [id number] [employer] Trilogy 6.5mm 20mm Self Tap Screw Bone 97354842249 - [id number] Implanted:Qty: 1 on 07/23/2023 by Jeoy Richardson MD at [facility] Left: Hip [employer] [id number] 07/31/2032 [id number] / / [id number] [employer] Trilogy 6.5mm 40mm Self Tap Hip Acetabular Cortical Screw Bone 73114921282 - [id number] Implanted:Qty: 1 on 07/23/2023 by Joey Richardson MD at [facility] Left: Hip [employer] [id number] 08/19/2032 [id number] / / [id number] [employer] Trilogy 6.5mm 50mm Self Tap Hip Acetabular Cortical Screw Bone 96763395622 - [id number] Implanted:Qty: 1 on 07/23/2023 by Joey Richardson MD at [facility] Left: Hip [employer] [id number] 12/23/2032 [id number] / / [id number] [employer] Trilogy 6.5mm 30mm Self Tap Acetabular Cortical Screw Bone 70051850905 - [id number] Implanted:Qty: 1 on 07/23/2023 by Joey Richardson MD at [facility] Left: Hip [employer] [id number] 03/13/2033 42404814560 / / [id number] [employer] Trilogy 6.5mm 50mm Self Tap Hip Acetabular Cortical Screw Bone 66138963946 - [id number] Implanted:Qty: 1 on 07/23/2023 by Joey Richardson MD at [facility] Left: Hip [employer] [id number] 12/25/2032 59980987956 / / [id number] [employer] 38mm Segmental Proximal Offset Component Femoral Trabecular Metal 20427919311 - [id number] Implanted:Qty: 1 on 07/23/2023 by Joey Richardson MD at [facility] Left: Hip [employer] [id number] 06/18/2033 19180116135 / / [id number] [employer] Nexgen 60mm Male To Female Taper Knee Tibial Fibula Component 14954390934 - [id number] Implanted:Qty: 1 on 07/23/2023 by Joey Richardson MD at [facility] Left: Hip [employer] [id number] 03/01/2029 55176914273 / / [id number] [employer] Nexgen 350mm Male To Female Taper Knee Tibial Fibula Component 10425105132 - [id number] Implanted:Qty: 1 on 07/23/2023 by Joey Richardson MD at [facility] Left: Hip [employer] [id number] 07/01/2028 [id number] / / [id number] [employer] Nexgen 50mm Male To Female Taper Knee Tibial Fibula Component 58153796411 - [id number] Implanted:Qty: 1 on 07/23/2023 by Joey Richardson MD at [facility] Left: Hip [employer] [id number] 11/08/2032 97868188466 / / [id number] [employer] Saco Hip +0mm 07/15 Taper Head Femoral Sterile Latex Free 911441256 - [id number] Implanted:Qty: 1 on 07/23/2023 by Joey Richardson MD at [facility] Left: Hip [employer] [id number] 04/16/2032 [id number] / / [id number] [employer] Orthopedic Synthetic Bone Void Filler Cerament W2795-82 - [id number] Implanted:Qty: 1 on 09/14/2024 by Joey Richardson MD at [facility] Left: Femur [employer] 06/10/2027 W3701-89 / / [id number] Description:Mixed with Vanco mycin 1 gram. [employer] Liner Acetabular Hip Vitamin E G7 Saco Vivacit E 36mm Polyethylene Size F 22259202 - [id number] Implanted:Qty: 1 on 09/14/2024 by Joey Richardson MD at [facility] Left: Femur [employer] [id number] 07/05/2029 45833286 / / [id number] [employer] Simplex P Full Dose Radiopaque Preblend Cement Bone Tobramycin 6197-9-001 - [id number] Implanted:Qty: 2 on 09/14/2024 by Joey Richardson MD at [facility] Left: Femur [employer] [id number] 11/29/2025 6197-9-001 / / [id number] [employer] 25mm Collar Knee Component Segmental Trabecular Metal 9-16mm Stem 44034676566 - [id number] Implanted:Qty: 1 on 09/14/2024 by Joey Richardson MD at [facility] Left: Femur [employer] [id number] 11/25/2025 [id number] / / [id number] [employer] Nexgen 12mm 130mm Cemented Segmental Knee Femur Straight Flute 37306135901 - [id number] Implanted:Qty: 1 on 09/14/2024 by Joey Richardson MD at [facility] Left: Femur [employer] [id number] 09/03/2033 72699301033 / / [id number] [employer] Simplex P Full Dose Radiopaque Preblend Cement Bone Tobramycin 6197-9-001 - [id number] Implanted:Qty: 2 on 09/14/2024 by Joey Richardson MD at [facility] Left: Femur [employer] [id number] 09/01/2025 6197-9-001 / / [id number] [employer] Head Femoral Hip 07/15 Taper Saco 36mm Keatchie Chromium 6mm Offset [id number] - [id number] Implanted:Qty: 1 on 09/14/2024 by Joey Richardson MD at [facility] Left: Femur [employer] 04/14/2033 [id number] / / [id number] Procedures Procedure Name Priority Date/Time Associated Diagnosis Comments XR FEMUR LEFT 2 OR MORE VIEWS Routine 12/15/2024 2:19 PM CDT 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, initial encounter (HCC) H/O total hip arthroplasty, left XR PELVIS 1 OR 2 VIEWS Schedule Routine, Read Routine (OP Routine) 12/15/2024 2:19 PM CDT 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, initial encounter (HCC) H/O total hip arthroplasty, left XR FEMUR LEFT 2 OR MORE VIEWS Routine 10/11/2024 12:25 PM CDT H/O total hip arthroplasty, left XR HIP LEFT 2 OR 3 VIEWS Schedule Routine, Read Routine (OP Routine) 10/11/2024 12:25 PM CDT H/O total hip arthroplasty, left EGFR STAT 10/10/2024 9:44 AM CDT VANCOMYCIN LEVEL TROUGH STAT 10/10/2024 9:44 AM CDT DIFFERENTIAL AUTO STAT 10/10/2024 9:4 4 AM CDT CBC WITH AUTO DIFFERENTIAL STAT 10/10/2024 9:44 AM CDT COMPREHENSIVE METABOLIC PANEL STAT 10/10/2024 9:44 AM CDT DIFFERENTIAL AUTO Routine 10/09/2024 1:1 8 PM CDT CBC WITH AUTO DIFFERENTIAL Routine 10/09/2024 1:18 PM CDT CRITICAL RESULT CALLBACK CHEMISTRY Routine 10/09/2024 9:55 AM CDT EGFR Routine 10/09/2024 9:55 AM CDT VANCOMYCIN LEVEL TROUGH Routine 10/09/2024 9:55 AM CDT COMPREHENSIVE METABOLIC PANEL Routine 10/09/2024 9:55 AM CDT EGFR Routine 10/06/2024 9:31 AM CONCRETE BUCKET LOADER VANCOMYCIN LEVEL TROUGH Routine 10/06/2024 9:31 AM CONCRETE BUCKET LOADER DIFFERENTIAL AUTO Routine 10/06/2024 9:3 1 AM CONCRETE BUCKET LOADER CRP (ACUTE PHASE) Routine 10/06/2024 9:3 1 AM CONCRETE BUCKET LOADER ERYTHROCYTE SEDIMENTATION RATE Routine 10/06/2024 9:31 AM CONCRETE BUCKET LOADER CBC WITH AUTO DIFFERENTIAL Routine 10/06/2024 9:31 AM CONCRETE BUCKET LOADER COMPREHENSIVE METABOLIC PANEL Routine 10/06/2024 9:31 AM CONCRETE BUCKET LOADER EGFR Routine 10/02/2024 1:47 PM CONCRETE BUCKET LOADER VANCOMYCIN LEVEL TROUGH Routine 10/02/2024 1:47 PM CONCRETE BUCKET LOADER DIFFERENTIAL AUTO Routine 10/02/2024 1:4 7 PM CONCRETE BUCKET LOADER CBC WITH AUTO DIFFERENTIAL Routine 10/02/2024 1:47 PM CONCRETE BUCKET LOADER COMPREHENSIVE METABOLIC PANEL Routine 10/02/2024 1:47 PM CONCRETE BUCKET LOADER XR FEMUR LEFT 2 OR MORE VIEWS Routine 09/29/2024 2:18 PM CONCRETE BUCKET LOADER H/O total hip arthroplasty, left VANCOMYCIN LEVEL TROUGH Routine 09/28/2024 9:49 AM CONCRETE BUCKET LOADER LIPID PANEL Routine 09/15/2024 6:59 AM CONCRETE BUCKET LOADER POCT HEMOGLOBIN A1C Routine 09/11/2024 1 :56 PM CONCRETE BUCKET LOADER COLONOSCOPY 04/10/2020 9:19 AM CDT PSA DIAGNOSTIC STAT 05/17/2018 11:[address] ABDOMEN PELVIS W CONTRAST ED 05/17/2018 2:05 AM CDT from Last 3 Months or Most Recently Relevant to Health Maintenance Results * XR Pelvis 1 or 2 Views (12/15/2024 2:19 PM CDT) Anatomical Region Laterality Modality Body, Pelvis N/A Computed Radiogr aphy 12/15/2024 3:00 PM CDT Impressions 12/15/2024 3:44 PM CDT 1. Unchanged constrained left revision total hip arthroplasty with endoprosthetic reconstruction of the left proximal femur. Dictated by: Beth Nettles M.D. The radiology attending physician has personally reviewed this study, and had reviewed and/or edited this written report and agrees with it. Electronically signed by: Surinder Singer MD Narrative 12/15/2024 3:44 PM CDT EXAMINATION: XR PELVIS 1 OR 2 VIEWS, XR FEMUR LEFT 2 OR MORE VIEWS HISTORY: Femur replacement FINDINGS: A single radiograph of the pelvis and 4 radiographs of the left femur are compared to 10/11/2024. Unchanged constrained left revision total hip arthroplasty with proximal femoral resection and prosthetic reconstruction. No periprosthetic fracture or osteolysis. Heterotopic ossification lateral to the left hip joint. There is mild soft tissue swelling over the lateral left thigh. No knee joint effusion. Procedure Note Surinder Singer MD - 12/15/2024 EXAMINATION: XR PELVIS 1 OR 2 VIEWS, XR FEMUR LEFT 2 OR MORE VIEWS HISTORY: Femur replacement FINDINGS: A single radiograph of the pelvis and 4 radiographs of the left femur are compared to 10/11/2024. Unchanged constrained left revision total hip arthroplasty with proximal femoral resection and prosthetic reconstruction. No periprosthetic fracture or osteolysis. Heterotopic ossification lateral to the left hip joint. There is mild soft tissue swelling over the lateral left thigh. No knee joint effusion. IMPRESSION: 1. Unchanged constrained left revision total hip arthroplasty with endoprosthetic reconstruction of the left proximal femur. Dictated by: Beth Nettles M.D. The radiology attending physician has personally reviewed this study, and had reviewed and/or edited this written report and agrees with it. Electronically signed by: Surinder Singer MD Joey Richardson MD IM XR PROCEDURES Final Re sult * XR Femur Left 2 or More Views (12/15/2024 2:19 PM CDT) Anatomical Region Laterality Modality Lower Extremities, Thigh, Femur Left Computed Radiography 12/15/2024 3:00 PM CDT Impressions 12/15/2024 3:44 PM CDT 1. Unchanged constrained left revision total hip arthroplasty with endoprosthetic reconstruction of the left proximal femur. Dictated by: Beth Nettles M.D. The radiology attending physician has personally reviewed this study, and had reviewed and/or edited this written report and agrees with it. Electronically signed by: Surinder Singer MD Narrative 12/15/2024 3:44 PM CDT EXAMINATION: XR PELVIS 1 OR 2 VIEWS, XR FEMUR LEFT 2 OR MORE VIEWS HISTORY: Femur replacement FINDINGS: A single radiograph of the pelvis and 4 radiographs of the left femur are compared to 10/11/2024. Unchanged constrained left revision total hip arthroplasty with proximal femoral resection and prosthetic reconstruction. No periprosthetic fracture or osteolysis. Heterotopic ossification lateral to the left hip joint. There is mild soft tissue swelling over the lateral left thigh. No knee joint effusion. Procedure Note Surinder Singer MD - 12/15/2024 EXAMINATION: XR PELVIS 1 OR 2 VIEWS, XR FEMUR LEFT 2 OR MORE VIEWS HISTORY: Femur replacement FINDINGS: A single radiograph of the pelvis and 4 radiographs of the left femur are compared to 10/11/2024. Unchanged constrained left revision total hip arthroplasty with proximal femoral resection and prosthetic reconstruction. No periprosthetic fracture or osteolysis. Heterotopic ossification lateral to the left hip joint. There is mild soft tissue swelling over the lateral left thigh. No knee joint effusion. IMPRESSION: 1. Unchanged constrained left revision total hip arthroplasty with endoprosthetic reconstruction of the left proximal femur. Dictated by: Beth Nettles M.D. The radiology attending physician has personally reviewed this study, and had reviewed and/or edited this written report and agrees with it. Electronically signed by: Surinder Singer MD Joey Richardson MD IM XR PROCEDURES Final Re sult * XR Femur Left 2 or More Views (10/11/2024 12:25 PM CDT) Anatomical Region Laterality Modality Lower Extremities, Thigh, Femur Left Computed Radiography 10/11/2024 2:41 PM CDT Impressions 10/11/2024 2:41 PM CDT 1. Unchanged left revision total hip arthroplasty and endoprosthetic reconstruction of the left proximal femur Electronically signed by: Rolanda Matamoros MD Narrative 10/11/2024 2:41 PM CDT EXAMINATION: XR HIP LEFT 2 OR 3 VIEWS, XR FEMUR LEFT 2 OR MORE VIEWS HISTORY: Left hip arthroplasty FINDINGS: 2 radiographs of the left hip and 4 radiographs of the left femur are submitted for interpretation with comparison to 03/21/2025. 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 No periprosthetic fracture or osteolysis. The surgical drains have been removed. There is decreased soft tissue swelling in the left hip and thigh. Diffuse bone demineralization is noted. No knee joint effusion. Procedure Note Taylor Matamoros MD - 10/11/2024 EXAMINATION: XR HIP LEFT 2 OR 3 VIEWS, XR FEMUR LEFT 2 OR MORE VIEWS HISTORY: Left hip arthroplasty FINDINGS: 2 radiographs of the left hip and 4 radiographs of the left femur are submitted for interpretation with comparison to 03/21/2025. 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 No periprosthetic fracture or osteolysis. The surgical drains have been removed. There is decreased soft tissue swelling in the left hip and thigh. Diffuse bone demineralization is noted. No knee joint effusion. IMPRESSION: 1. Unchanged left revision total hip arthroplasty and endoprosthetic reconstruction of the left proximal femur Electronically signed by: Rolanda Matamoros MD Joey Richardson MD IMG XR PROCEDURES Final Re sult * XR Hip Left 2 or 3 Views (10/11/2024 12:25 PM CDT) Anatomical Region Laterality Modality Lower Extremities, Hip, Pelvis Left C omputed Radiography 10/11/2024 2:41 PM CDT Impressions 10/11/2024 2:41 PM CDT 1. Unchanged left revision total hip arthroplasty and endoprosthetic reconstruction of the left proximal femur Electronically signed by: Rolanda Matamoros MD Narrative 10/11/2024 2:41 PM CDT EXAMINATION: XR HIP LEFT 2 OR 3 VIEWS, XR FEMUR LEFT 2 OR MORE VIEWS HISTORY: Left hip arthroplasty FINDINGS: 2 radiographs of the left hip and 4 radiographs of the left femur are submitted for interpretation with comparison to 03/21/2025. 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 No periprosthetic fracture or osteolysis. The surgical drains have been removed. There is decreased soft tissue swelling in the left hip and thigh. Diffuse bone demineralization is noted. No knee joint effusion. Procedure Note Taylor Matamoros MD - 10/11/2024 EXAMINATION: XR HIP LEFT 2 OR 3 VIEWS, XR FEMUR LEFT 2 OR MORE VIEWS HISTORY: Left hip arthroplasty FINDINGS: 2 radiographs of the left hip and 4 radiographs of the left femur are submitted for interpretation with comparison to 03/21/2025. 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 No periprosthetic fracture or osteolysis. The surgical drains have been removed. There is decreased soft tissue swelling in the left hip and thigh. Diffuse bone demineralization is noted. No knee joint effusion. IMPRESSION: 1. Unchanged left revision total hip arthroplasty and endoprosthetic reconstruction of the left proximal femur Electronically signed by: Rolanda Matamoros MD Joey Richardson MD IMG XR PROCEDURES Final Re sult * eGFR (10/10/2024 9:44 AM CDT) eGFR >90 >=60 mL/min/1. 73 m2 Comment: Interpretive Data Reference Interval Normal >/= 90 mL/min/1.73m2 Mildly decreased* 60 - 89 mL/min/1.73m2 Mildly to moderately decreased 45 - 59 mL/min/1.73m2 Moderately to severely decreased 30 - 44 mL/min/1.73m2 Severely decreased 15 - 29 mL/min/1.73m2 Kidney Failure < 15 mL/min/1.73m2 *Relative to young adult level Estimated glomerular filtration rate is determined by the 2020 CKD-EPI equation recommended by the National Kid[employer] (A Unifying Approach to GFR Estimation: Recommendations of the NKF-ASK Task Force on Reassessing the Inclusion of Race in Diagnosing Kidney Disease, JASN 2020). The CKD-EPI equation should not be used for patients with unstable renal function and has not been validated in children and those over 70. Current interpretive data was last reviewed 2021. Blood 10/10/2024 9:44 AM CDT 10/10/2024 11:15 AM CDT us Timbo Harris MD LAB BLOOD ORDERABLES Final Res ult [facility] Department [place] [address] * Differential, auto (10/10/2024 9:44 AM CDT) Neutrophil abs 3.3 1.5 - 6.5 K/cumm Imm gran abs 0.0 0.0 - 0.1 K/cumm [facility] Lymphocyte abs 1.6 0.8 - 3.3 K/cumm [facility] Monocyte abs 0.5 0.2 - 0.8 K/cumm [facility] Eosinophil abs 0.3 0.0 - 0.5 K/cumm [facility] Basophil abs 0.0 0.0 - 0.1 K/cumm [facility] Neutrophil pct 57.6 % [facility] Comment: Interpretive Data Percent cell count reference ranges are not reported, since discordance with absolute values may lead to misinterpretation of CBC data. Current Interpretive Data was last revised on 2017. Imm gran pct 0.2 % [facility] Comment: Interpretive Data Percent cell count reference ranges are not reported, since discordance with absolute values may lead to misinterpretation of CBC data. Current Interpretive Data was last revised on 2017. Lymphocyte pct 28.4 % [facility] Comment: Interpretive Data Percent cell count reference ranges are not reported, since discordance with absolute values may lead to misinterpretation of CBC data. Current Interpretive Data was last revised on 2017. Monocyte pct 8.8 % [facility] Comment: Interpretive Data Percent cell count reference ranges are not reported, since discordance with absolute values may lead to misinterpretation of CBC data. Current Interpretive Data was last revised on 2017. Eosinophil pct 4.6 % [facility] Comment: Interpretive Data Percent cell count reference ranges are not reported, since discordance with absolute values may lead to misinterpretation of CBC data. Current Interpretive Data was last revised on 2017. Basophil pct 0.4 % [facility] Comment: Interpretive Data Percent cell count reference ranges are not reported, since discordance with absolute values may lead to misinterpretation of CBC data. Current Interpretive Data was last revised on 2017. Blood 10/10/2024 9:44 AM CDT 10/10/2024 10:59 AM CDT us Timbo Harris MD LAB BLOOD ORDERABLES Final Res ult [facility] Department [place] [address] * (ABNORMAL) CBC with auto differential (10/10/2024 9:44 AM CDT) WBC 5.7 3.8 - 9.9 K/cumm Hgb 10.8(L) 13.0 - 17.5 g/dL [facility] Hct 35.9(L) 38.9 - 50.3 % [facility] Plt 279 150 - 400 K/cumm [facility] MPV 9.9 9.1 - 12.3 fL [facility] RBC 4.89 4.30 - 5.80 M/cumm [facility] MCV 73.4(L) 81.3 - 96.4 fL [facility] MCH 22.1(L) 27.1 - 33.3 pg [facility] MCHC 30.1(L) 32.3 - 35.7 g/dL [facility] RDW CV 20.0(H) 11.1 - 14.9 % [facility] RDW SD 53.3(H) 35.7 - 48.1 fL [facility] NRBC abs 0.00 0.00 - 0.01 K/cumm [facility] Blood 10/10/2024 9:44 AM CDT 10/10/2024 10:59 AM CDT Timbo Harris MD LAB BLOOD ORDERABLES Final Res ult Performing Organization Address [facility] Co de Phone Number [facility] Department [place] [address] * Vancomycin level trough (10/10/2024 9:44 AM CDT) Pathologist [facility] Vancomycin trough 16.5 10.0 - 20.0 mcg/mL Blood 10/10/2024 9:44 AM CDT 10/10/2024 10:58 AM CDT Timbo Harris MD LAB BLOOD ORDERABLES Final Res ult Performing Organization Address [facility] de Phone Number [facility] Department [place] [address] * Comprehensive metabolic panel (10/10/2024 9:44 AM CDT) Pathologist [facility] Sodium 141 135 - 145 mmol/L Potassium, pl 3.5 3.3 - 4.9 mmol/L [facility] Comment:Repeated and Verifie d Chloride 102 97 - 110 mmol/L [facility] CO2 31 22 - 32 mmol/L [facility] Anion gap 8 2 - 15 mmol/L [facility] BUN 13 6 - 25 mg/dL [facility] Creatinine 0.89 0.80 - 1.30 mg/dL [facility] Glucose 186 70 - 199 mg/dL [facility] Comment: Interpretive Data Fasting glucose >/= 126 mg/dl is diagnostic for diabetes. Fasting is defined as no caloric intake for at least 8 hours. Fasting glucose between 100 mg/dl to 125 mg/dl is diagnostic of prediabetes. In a patient with classic symptoms of hyperglycemia or hyperglycemic crisis, a random glucose >/= 200 mg/dl is diagnostic for diabetes. In the absence of unequivocal hyperglycemia, results should be confirmed by repeat testing. The classification and Diagnosis of Diabetes Diabetes Care 2021; 46: S19-S40. Current interpretive data was last revised 2022. Calcium 9.2 8.5 - 10.3 mg/dL [facility] Bilirubin, total 0.2 0.1 - 1.2 mg/dL [facility] Protein, pl 8.2 6.5 - 8.5 g/dL [facility] Albumin 3.7 3.5 - 5.0 g/dL [facility] Alk phos 117 40 - 130 Units/L [facility] ALT 10 7 - 55 Units/L [facility] AST 16 10 - 50 Units/L [facility] Blood 10/10/2024 9:44 AM CDT 10/10/2024 10:58 AM CDT us Timbo Harris MD LAB BLOOD ORDERABLES Final Res ult [facility] Department [place] [address] * Differential, auto (10/09/2024 1:18 PM CDT) Neutrophil abs 3.7 1.5 - 6.5 K/cumm Imm gran abs 0.0 0.0 - 0.1 K/cumm [facility] Lymphocyte abs 1.6 0.8 - 3.3 K/cumm [facility] Monocyte abs 0.6 0.2 - 0.8 K/cumm [facility] Eosinophil abs 0.3 0.0 - 0.5 K/cumm [facility] Basophil abs 0.0 0.0 - 0.1 K/cumm [facility] Neutrophil pct 59.2 % [facility] Comment: Interpretive Data Percent cell count reference ranges are not reported, since discordance with absolute values may lead to misinterpretation of CBC data. Current Interpretive Data was last revised on 2017. Imm gran pct 0.3 % [facility] Comment: Interpretive Data Percent cell count reference ranges are not reported, since discordance with absolute values may lead to misinterpretation of CBC data. Current Interpretive Data was last revised on 2017. Lymphocyte pct 25.9 % [facility] Comment: Interpretive Data Percent cell count reference ranges are not reported, since discordance with absolute values may lead to misinterpretation of CBC data. Current Interpretive Data was last revised on 2017. Monocyte pct 9.1 % [facility] Comment: Interpretive Data Percent cell count reference ranges are not reported, since discordance with absolute values may lead to misinterpretation of CBC data. Current Interpretive Data was last revised on 2017. Eosinophil pct 5.0 % [facility] Comment: Interpretive Data Percent cell count reference ranges are not reported, since discordance with absolute values may lead to misinterpretation of CBC data. Current Interpretive Data was last revised on 2017. Basophil pct 0.5 % [facility] Comment: Interpretive Data Percent cell count reference ranges are not reported, since discordance with absolute values may lead to misinterpretation of CBC data. Current Interpretive Data was last revised on 2017. Blood 10/09/2024 1:18 PM CDT 10/09/2024 1:56 PM CDT us Timbo Harris MD LAB BLOOD ORDERABLES Final Res ult [facility] Department [place] [address] * (ABNORMAL) CBC with auto differential (10/09/2024 1:18 PM CDT) WBC 6.2 3.8 - 9.9 K/cumm Hgb 11.7(L) 13.0 - 17.5 g/dL [facility] Hct 38.3(L) 38.9 - 50.3 % [facility] Plt 275 150 - 400 K/cumm [facility] MPV 10.5 9.1 - 12.3 fL [facility] RBC 5.28 4.30 - 5.80 M/cumm [facility] MCV 72.5(L) 81.3 - 96.4 fL [facility] MCH 22.2(L) 27.1 - 33.3 pg [facility] MCHC 30.5(L) 32.3 - 35.7 g/dL [facility] RDW CV 20.6(H) 11.1 - 14.9 % [facility] RDW SD 53.3(H) 35.7 - 48.1 fL [facility] NRBC abs 0.00 0.00 - 0.01 K/cumm [facility] Blood 10/09/2024 1:18 PM CDT 10/09/2024 1:56 PM CDT us Timbo Harris MD LAB BLOOD ORDERABLES Final Res ult [facility] Department [place] [address] * eGFR (10/09/2024 9:55 AM CDT) eGFR See Comment >=60 Comment: Credited: Sample investigated and is suggestive of an improper collection (e.g., IV fluid contamination, improper tube type). Deleted at the Request of Karma Copeland (PharmD) on 10/09/2024 17:30:25 CDT by yq . Interpretive Data Reference Interval Normal >/= 90 mL/min/1.73m2 Mildly decreased* 60 - 89 mL/min/1.73m2 Mildly to moderately decreased 45 - 59 mL/min/1.73m2 Moderately to severely decreased 30 - 44 mL/min/1.73m2 Severely decreased 15 - 29 mL/min/1.73m2 Kidney Failure < 15 mL/min/1.73m2 *Relative to young adult level Estimated glomerular filtration rate is determined by the 2020 CKD-EPI equation recommended by the National Kidney [employer] (A Unifying Approach to GFR Estimation: Recommendations of the NKF-ASK Task Force on Reassessing the Inclusion of Race in Diagnosing Kidney Disease, JASN 2020). The CKD-EPI equation should not be used for patients with unstable renal function and has not been validated in children and those over 70. Current interpretive data was last reviewed 2021. Blood 10/09/2024 9:55 AM CDT 10/09/2024 1:56 PM CDT us Timbo Harris MD LAB BLOOD ORDERABLES Edited Re sult - Final Performing Organization Address [facility]/ZIP Co de Phone Number [facility] [place] [address] * Critical Result Callback Chemistry (10/09/2024 9:55 AM CDT) Date Notified [id number] Time Notified 1649 [facility] TestName K, Priscilla [facility] Called/Read Back Karma Copeland/ Nilda Bazan (RN) [facility] Credentials PharmD [facility] Called By yq [facility] Blood 10/09/2024 9:55 AM CDT 10/09/2024 1:56 PM CDT Timbo Harris MD LAB BLOOD ORDERABLES Final Res ult Performing Organization Address [facility] Co de Phone Number [facility] [place] [address] * Vancomycin level trough (10/09/2024 9:55 AM CDT) Vancomycin trough See Comment 10.0 - 20.0 mcg/mL Comment: Sample investigated and found to be analytically accurate. If results do not match clinical presentation, improper collection (e.g., IV fluid contamination, improper tube type, mislabel) should be considered and re-collection recommended. Credited: Sample investigated and is suggestive of an improper collection (e.g., IV fluid contamination, improper tube type). Deleted at the Request of Karma Copeland (PharmD) on 10/09/2024 17:30:25 CDT by yq . Blood 10/09/2024 9:55 AM CDT 10/09/2024 1:38 PM CDT Timbo Harris MD LAB BLOOD ORDERABLES Edited Re sult - Final Performing Organization Address [facility]/ZIP Co de Phone Number [facility] Department [place] [address] * Comprehensive metabolic panel (10/09/2024 9:55 AM CDT) Sodium See Comment 135 - 145 mmol/L Comment: Sample investigated and found to be analytically accurate. If results do not match clinical presentation, improper collection (e.g., IV fluid contamination, improper tube type, mislabel) should be considered and re-collection recommended. Credited: Sample investigated and is suggestive of an improper collection (e.g., IV fluid contamination, improper tube type). Deleted at the Request of Karma Copeland (PharmD) on 10/09/2024 17:30:25 CDT by yq . Potassium, pl See Comment 3.3 - 4.9 mmol/L [facility] Comment: Sample investigated and found to be analytically accurate. If results do not match clinical presentation, improper collection (e.g., IV fluid contamination, improper tube type, mislabel) should be considered and re-collection recommended. Credited: Sample investigated and is suggestive of an improper collection (e.g., IV fluid contamination, improper tube type). Deleted at the Request of Karma Copeland (PharmD) on 10/09/2024 17:30:25 CDT by yq . Chloride See Comment 97 - 110 mmol/L [facility] Comment: Sample investigated and found to be analytically accurate. If results do not match clinical presentation, improper collection (e.g., IV fluid contamination, improper tube type, mislabel) should be considered and re-collection recommended. Credited: Sample investigated and is suggestive of an improper collection (e.g., IV fluid contamination, improper tube type). Deleted at the Request of Karma Copeland (PharmD) on 10/09/2024 17:30:25 CDT by yq . CO2 See Comment 22 - 32 mmol/L [facility] Comment: Sample investigated and found to be analytically accurate. If results do not match clinical presentation, improper collection (e.g., IV fluid contamination, improper tube type, mislabel) should be considered and re-collection recommended. Credited: Sample investigated and is suggestive of an improper collection (e.g., IV fluid contamination, improper tube type). Deleted at the Request of Karma Copeland (PharmD) on 10/09/2024 17:30:25 CDT by yq . Anion gap See Comment 2 - 15 mmol/L [facility] Comment: Sample investigated and found to be analytically accurate. If results do not match clinical presentation, improper collection (e.g., IV fluid contamination, improper tube type, mislabel) should be considered and re-collection recommended. Credited: Sample investigated and is suggestive of an improper collection (e.g., IV fluid contamination, improper tube type). Deleted at the Request of Karma Copeland (PharmD) on 10/09/2024 17:30:25 CDT by yq . BUN See Comment 6 - 25 mg/dL [facility] Comment: Sample investigated and found to be analytically accurate. If results do not match clinical presentation, improper collection (e.g., IV fluid contamination, improper tube type, mislabel) should be considered and re-collection recommended. Credited: Sample investigated and is suggestive of an improper collection (e.g., IV fluid contamination, improper tube type). Deleted at the Request of Karma Copeland (PharmD) on 10/09/2024 17:30:25 CDT by yq . Creatinine See Comment 0.80 - 1.30 mg/dL [facility] Comment: Sample investigated and found to be analytically accurate. If results do not match clinical presentation, improper collection (e.g., IV fluid contamination, improper tube type, mislabel) should be considered and re-collection recommended. Credited: Sample investigated and is suggestive of an improper collection (e.g., IV fluid contamination, improper tube type). Deleted at the Request of Karma Copeland (PharmD) on 10/09/2024 17:30:25 CDT by yq . Glucose See Comment 70 - 199 mg/dL [facility] Comment: Interpretive Data Fasting glucose >/= 126 mg/dl is diagnostic for diabetes. Fasting is defined as no caloric intake for at least 8 hours. Fasting glucose between 100 mg/dl to 125 mg/dl is diagnostic of prediabetes. In a patient with classic symptoms of hyperglycemia or hyperglycemic crisis, a random glucose >/= 200 mg/dl is diagnostic for diabetes. In the absence of unequivocal hyperglycemia, results should be confirmed by repeat testing. The classification and Diagnosis of Diabetes Diabetes Care 2021; 46: S19-S40. Current interpretive data was last revised 2022. Sample investigated and found to be analytically accurate. If results do not match clinical presentation, improper collection (e.g., IV fluid contamination, improper tube type, mislabel) should be considered and re-collection recommended. Credited: Sample investigated and is suggestive of an improper collection (e.g., IV fluid contamination, improper tube type). Deleted at the Request of Karma Copeland (PharmD) on 10/09/2024 17:30:25 CDT by yq . Calcium See Comment 8.5 - 10.3 mg/dL [facility] Comment: Repeated and Verified Sample investigated and found to be analytically accurate. If results do not match clinical presentation, improper collection (e.g., IV fluid contamination, improper tube type, mislabel) should be considered and re-collection recommended. Credited: Sample investigated and is suggestive of an improper collection (e.g., IV fluid contamination, improper tube type). Deleted at the Request of Karma Copeland (PharmD) on 10/09/2024 17:30:25 CDT by yq . Bilirubin, total See Comment 0.1 - 1.2 mg/dL [facility] Comment: Sample investigated and found to be analytically accurate. If results do not match clinical presentation, improper collection (e.g., IV fluid contamination, improper tube type, mislabel) should be considered and re-collection recommended. Credited: Sample investigated and is suggestive of an improper collection (e.g., IV fluid contamination, improper tube type). Deleted at the Request of Karma Copeland (PharmD) on 10/09/2024 17:30:25 CDT by yq . Protein, pl See Comment 6.5 - 8.5 g/dL [facility] Comment: Sample investigated and found to be analytically accurate. If results do not match clinical presentation, improper collection (e.g., IV fluid contamination, improper tube type, mislabel) should be considered and re-collection recommended. Credited: Sample investigated and is suggestive of an improper collection (e.g., IV fluid contamination, improper tube type). Deleted at the Request of Karma Copeland (PharmD) on 10/09/2024 17:30:25 CDT by yq . Albumin See Comment 3.5 - 5.0 g/dL [facility] Comment: Sample investigated and found to be analytically accurate. If results do not match clinical presentation, improper collection (e.g., IV fluid contamination, improper tube type, mislabel) should be considered and re-collection recommended. Credited: Sample investigated and is suggestive of an improper collection (e.g., IV fluid contamination, improper tube type). Deleted at the Request of Karma Copeland (PharmD) on 10/09/2024 17:30:25 CDT by yq . Alk phos See Comment 40 - 130 Units/L [facility] Comment: Sample investigated and found to be analytically accurate. If results do not match clinical presentation, improper collection (e.g., IV fluid contamination, improper tube type, mislabel) should be considered and re-collection recommended. Credited: Sample investigated and is suggestive of an improper collection (e.g., IV fluid contamination, improper tube type). Deleted at the Request of Karma Copeland (PharmD) on 10/09/2024 17:30:25 CDT by yq . ALT See Comment 7 - 55 Units/L [facility] Comment: Sample investigated and found to be analytically accurate. If results do not match clinical presentation, improper collection (e.g., IV fluid contamination, improper tube type, mislabel) should be considered and re-collection recommended. Credited: Sample investigated and is suggestive of an improper collection (e.g., IV fluid contamination, improper tube type). Deleted at the Request of Karma Copeland (PharmD) on 10/09/2024 17:30:25 CDT by yq . AST See Comment 10 - 50 Units/L [facility] Comment: Sample investigated and found to be analytically accurate. If results do not match clinical presentation, improper collection (e.g., IV fluid contamination, improper tube type, mislabel) should be considered and re-collection recommended. Credited: Sample investigated and is suggestive of an improper collection (e.g., IV fluid contamination, improper tube type). Deleted at the Request of Karma Copeland (PharmD) on 10/09/2024 17:30:25 CDT by yq . Blood 10/09/2024 9:55 AM CDT 10/09/2024 1:38 PM CDT Timbo Harris MD LAB BLOOD ORDERABLES Edited Re sult - Final Performing Organization Address City/[facility]/ZIP Co de Phone Number [facility] [place] [address] * eGFR (10/06/2024 9:31 AM CONCRETE BUCKET LOADER) eGFR 78 >=60 mL/min/1. 73 m2 Comment: Interpretive Data Reference Interval Normal >/= 90 mL/min/1.73m2 Mildly decreased* 60 - 89 mL/min/1.73m2 Mildly to moderately decreased 45 - 59 mL/min/1.73m2 Moderately to severely decreased 30 - 44 mL/min/1.73m2 Severely decreased 15 - 29 mL/min/1.73m2 Kidney Failure < 15 mL/min/1.73m2 *Relative to young adult level Estimated glomerular filtration rate is determined by the 2020 CKD-EPI equation recommended by the National Kidney Foundation (A Unifying Approach to GFR Estimation: Recommendations of the NKF-ASK Task Force on Reassessing the Inclusion of Race in Diagnosing Kidney Disease, JASN 2020). The CKD-EPI equation should not be used for patients with unstable renal function and has not been validated in children and those over 70. Current interpretive data was last reviewed 2021. Blood 10/06/2024 9:31 AM CONCRETE BUCKET LOADER 10/06/2024 12:23 PM CONCRETE BUCKET LOADER us Timbo Harris MD LAB BLOOD ORDERABLES Final Res ult Performing Organization Address City/[facility]/ZIP Co de Phone Number [facility] Department [place] [address] * Differential, auto (10/06/2024 9:31 AM CONCRETE BUCKET LOADER) Neutrophil abs 3.8 1.5 - 6.5 K/cumm Imm gran abs 0.0 0.0 - 0.1 K/cumm [facility] Lymphocyte abs 2.2 0.8 - 3.3 K/cumm [facility] Monocyte abs 0.7 0.2 - 0.8 K/cumm [facility] Eosinophil abs 0.2 0.0 - 0.5 K/cumm [facility] Basophil abs 0.0 0.0 - 0.1 K/cumm [facility] Neutrophil pct 54.7 % [facility] Comment: Interpretive Data Percent cell count reference ranges are not reported, since discordance with absolute values may lead to misinterpretation of CBC data. Current Interpretive Data was last revised on 2017. Imm gran pct 0.3 % [facility] Comment: Interpretive Data Percent cell count reference ranges are not reported, since discordance with absolute values may lead to misinterpretation of CBC data. Current Interpretive Data was last revised on 2017. Lymphocyte pct 31.5 % [facility] Comment: Interpretive Data Percent cell count reference ranges are not reported, since discordance with absolute values may lead to misinterpretation of CBC data. Current Interpretive Data was last revised on 2017. Monocyte pct 9.9 % [facility] Comment: Interpretive Data Percent cell count reference ranges are not reported, since discordance with absolute values may lead to misinterpretation of CBC data. Current Interpretive Data was last revised on 2017. Eosinophil pct 3.3 % [facility] Comment: Interpretive Data Percent cell count reference ranges are not reported, since discordance with absolute values may lead to misinterpretation of CBC data. Current Interpretive Data was last revised on 2017. Basophil pct 0.3 % [facility] Comment: Interpretive Data Percent cell count reference ranges are not reported, since discordance with absolute values may lead to misinterpretation of CBC data. Current Interpretive Data was last revised on 2017. Blood 10/06/2024 9:31 AM CONCRETE BUCKET LOADER 10/06/2024 12:23 PM CONCRETE BUCKET LOADER us Timbo Harris MD LAB BLOOD ORDERABLES Final Res ult [facility] Department [place] [address] * (ABNORMAL) CBC with auto differential (10/06/2024 9:31 AM CONCRETE BUCKET LOADER) Pathologist [facility] WBC 7.0 3.8 - 9.9 K/cumm Hgb 11.2(L) 13.0 - 17.5 g/dL [facility] Hct 37.1(L) 38.9 - 50.3 % [facility] Plt 333 150 - 400 K/cumm [facility] MPV 9.5 9.1 - 12.3 fL [facility] RBC 5.09 4.30 - 5.80 M/cumm [facility] MCV 72.9(L) 81.3 - 96.4 fL [facility] MCH 22.0(L) 27.1 - 33.3 pg [facility] MCHC 30.2(L) 32.3 - 35.7 g/dL [facility] RDW CV 20.5(H) 11.1 - 14.9 % [facility] RDW SD 53.6(H) 35.7 - 48.1 fL [facility] NRBC abs 0.00 0.00 - 0.01 K/cumm [facility] Blood 10/06/2024 9:31 AM CONCRETE BUCKET LOADER 10/06/2024 12:23 PM CONCRETE BUCKET LOADER us Timbo Harris MD LAB BLOOD ORDERABLES Final Res ult Performing Organization Address City/[facility] Co de Phone Number [facility] Department [place] [address] * (ABNORMAL) Erythrocyte sedimentation rate (10/06/2024 9:31 AM CONCRETE BUCKET LOADER) [facility] Erythrocyte sedimentation rate 39(H) 1 - 20 mm/hr Blood 10/06/2024 9:31 AM CONCRETE BUCKET LOADER 10/06/2024 12:23 PM CONCRETE BUCKET LOADER Timbo Harris MD LAB BLOOD ORDERABLES Final Res ult Performing Organization Address City/[facility] Co de Phone Number [facility] Department [place] [address] * CRP (acute phase) (10/06/2024 9:31 AM CONCRETE BUCKET LOADER) [facility] CRP 8.9 <=10.0 mg/L Blood 10/06/2024 9:31 AM CONCRETE BUCKET LOADER 10/06/2024 12:23 PM CONCRETE BUCKET LOADER Timbo Harris MD LAB BLOOD ORDERABLES Final Res ult Performing Organization Address [facility] Co de Phone Number [facility] [place] [address] * Vancomycin level trough (10/06/2024 9:31 AM CONCRETE BUCKET LOADER) [facility] Vancomycin trough 19.9 10.0 - 20.0 mcg/mL Blood 10/06/2024 9:31 AM CONCRETE BUCKET LOADER 10/06/2024 12:23 PM CONCRETE BUCKET LOADER Timbo Harris MD LAB BLOOD ORDERABLES Final Res ult Performing Organization Address [facility] Co de Phone Number [facility] Department [place] [address] * (ABNORMAL) Comprehensive metabolic panel (10/06/2024 9:31 AM CONCRETE BUCKET LOADER) [facility] Sodium 139 135 - 145 mmol/L Potassium, pl 3.7 3.3 - 4.9 mmol/L [facility] Chloride 99 97 - 110 mmol/L [facility] CO2 31 22 - 32 mmol/L [facility] Anion gap 9 2 - 15 mmol/L [facility] BUN 20 6 - 25 mg/dL [facility] Creatinine 1.05 0.80 - 1.30 mg/dL [facility] Glucose 115 70 - 199 mg/dL [facility] Comment: Interpretive Data Fasting glucose >/= 126 mg/dl is diagnostic for diabetes. Fasting is defined as no caloric intake for at least 8 hours. Fasting glucose between 100 mg/dl to 125 mg/dl is diagnostic of prediabetes. In a patient with classic symptoms of hyperglycemia or hyperglycemic crisis, a random glucose >/= 200 mg/dl is diagnostic for diabetes. In the absence of unequivocal hyperglycemia, results should be confirmed by repeat testing. The classification and Diagnosis of Diabetes Diabetes Care 2021; 46: S19-S40. Current interpretive data was last revised 2022. Calcium 9.3 8.5 - 10.3 mg/dL [facility] Bilirubin, total 0.2 0.1 - 1.2 mg/dL [facility] Protein, pl 8.6(H) 6.5 - 8.5 g/dL [facility] Albumin 3.8 3.5 - 5.0 g/dL [facility] Alk phos 124 40 - 130 Units/L [facility] ALT 7 7 - 55 Units/L [facility] AST 15 10 - 50 Units/L [facility] Blood 10/06/2024 9:31 AM CONCRETE BUCKET LOADER 10/06/2024 12:23 PM CONCRETE BUCKET LOADER us Timbo Harris MD LAB BLOOD ORDERABLES Final Res ult [facility] Department [place] [address] * eGFR (10/02/2024 1:47 PM CONCRETE BUCKET LOADER) eGFR 86 >=60 mL/min/1. 73 m2 Comment: Interpretive Data Reference Interval Normal >/= 90 mL/min/1.73m2 Mildly decreased* 60 - 89 mL/min/1.73m2 Mildly to moderately decreased 45 - 59 mL/min/1.73m2 Moderately to severely decreased 30 - 44 mL/min/1.73m2 Severely decreased 15 - 29 mL/min/1.73m2 Kidney Failure < 15 mL/min/1.73m2 *Relative to young adult level Estimated glomerular filtration rate is determined by the 2020 CKD-EPI equation recommended by the National Kidney Foundation (A Unifying Approach to GFR Estimation: Recommendations of the NKF-ASK Task Force on Reassessing the Inclusion of Race in Diagnosing Kidney Disease, JASN 2020). The CKD-EPI equation should not be used for patients with unstable renal function and has not been validated in children and those over 70. Current interpretive data was last reviewed 2021. Blood 10/02/2024 1:47 PM CONCRETE BUCKET LOADER 10/02/2024 1:55 PM CONCRETE BUCKET LOADER us Timbo Harris MD LAB BLOOD ORDERABLES Final Res ult [facility] Department [place] [address] * Differential, auto (10/02/2024 1:47 PM CONCRETE BUCKET LOADER) Neutrophil abs 4.7 1.5 - 6.5 K/cumm Imm gran abs 0.0 0.0 - 0.1 K/cumm [facility] Lymphocyte abs 1.4 0.8 - 3.3 K/cumm [facility] Monocyte abs 0.7 0.2 - 0.8 K/cumm [facility] Eosinophil abs 0.3 0.0 - 0.5 K/cumm [facility] Basophil abs 0.0 0.0 - 0.1 K/cumm [facility] Neutrophil pct 65.7 % [facility] Comment: Interpretive Data Percent cell count reference ranges are not reported, since discordance with absolute values may lead to misinterpretation of CBC data. Current Interpretive Data was last revised on 2017. Imm gran pct 0.3 % [facility] Comment: Interpretive Data Percent cell count reference ranges are not reported, since discordance with absolute values may lead to misinterpretation of CBC data. Current Interpretive Data was last revised on 2017. Lymphocyte pct 20.0 % [facility] Comment: Interpretive Data Percent cell count reference ranges are not reported, since discordance with absolute values may lead to misinterpretation of CBC data. Current Interpretive Data was last revised on 2017. Monocyte pct 9.8 % [facility] Comment: Interpretive Data Percent cell count reference ranges are not reported, since discordance with absolute values may lead to misinterpretation of CBC data. Current Interpretive Data was last revised on 2017. Eosinophil pct 3.8 % [facility] Comment: Interpretive Data Percent cell count reference ranges are not reported, since discordance with absolute values may lead to misinterpretation of CBC data. Current Interpretive Data was last revised on 2017. Basophil pct 0.4 % [facility] Comment: Interpretive Data Percent cell count reference ranges are not reported, since discordance with absolute values may lead to misinterpretation of CBC data. Current Interpretive Data was last revised on 2017. Blood 10/02/2024 1:47 PM CONCRETE BUCKET LOADER 10/02/2024 1:47 PM CONCRETE BUCKET LOADER us Timbo Harris MD LAB BLOOD ORDERABLES Final Res ult [facility] Department [place] [address] * (ABNORMAL) CBC with auto differential (10/02/2024 1:47 PM CONCRETE BUCKET LOADER) WBC 7.1 3.8 - 9.9 K/cumm Hgb 11.0(L) 13.0 - 17.5 g/dL [facility] Hct 36.1(L) 38.9 - 50.3 % [facility] Plt 368 150 - 400 K/cumm [facility] MPV 9.4 9.1 - 12.3 fL [facility] RBC 4.91 4.30 - 5.80 M/cumm [facility] MCV 73.5(L) 81.3 - 96.4 fL [facility] MCH 22.4(L) 27.1 - 33.3 pg [facility] MCHC 30.5(L) 32.3 - 35.7 g/dL [facility] RDW CV 21.1(H) 11.1 - 14.9 % [facility] RDW SD 55.4(H) 35.7 - 48.1 fL [facility] NRBC abs 0.00 0.00 - 0.01 K/cumm [facility] Blood 10/02/2024 1:47 PM CONCRETE BUCKET LOADER 10/02/2024 1:47 PM CONCRETE BUCKET LOADER Timbo Harris MD LAB BLOOD ORDERABLES Final Res ult Performing Organization Address [facility]/ZIP Co de Phone Number [facility] [place] [address] * Vancomycin level trough (10/02/2024 1:47 PM CONCRETE BUCKET LOADER) [facility] Vancomycin trough 17.9 10.0 - 20.0 mcg/mL Blood 10/02/2024 1:47 PM CONCRETE BUCKET LOADER 10/02/2024 1:47 PM CONCRETE BUCKET LOADER Timbo Harris MD LAB BLOOD ORDERABLES Final Res ult Performing Organization Address [facility] de Phone Number [facility] Department [place] [address] * (ABNORMAL) Comprehensive metabolic panel (10/02/2024 1:47 PM CONCRETE BUCKET LOADER) [facility] Sodium 137 135 - 145 mmol/L Potassium, pl 4.0 3.3 - 4.9 mmol/L [facility] Chloride 98 97 - 110 mmol/L [facility] CO2 31 22 - 32 mmol/L [facility] Anion gap 8 2 - 15 mmol/L [facility] BUN 12 6 - 25 mg/dL [facility] Creatinine 0.97 0.80 - 1.30 mg/dL [facility] Glucose 183 70 - 199 mg/dL [facility] Comment: Interpretive Data Fasting glucose >/= 126 mg/dl is diagnostic for diabetes. Fasting is defined as no caloric intake for at least 8 hours. Fasting glucose between 100 mg/dl to 125 mg/dl is diagnostic of prediabetes. In a patient with classic symptoms of hyperglycemia or hyperglycemic crisis, a random glucose >/= 200 mg/dl is diagnostic for diabetes. In the absence of unequivocal hyperglycemia, results should be confirmed by repeat testing. The classification and Diagnosis of Diabetes Diabetes Care 202; 46: S19-S40. Current interpretive data was last revised 2022. Calcium 9.4 8.5 - 10.3 mg/dL [facility] Bilirubin, total 0.3 0.1 - 1.2 mg/dL [facility] Protein, pl 8.6(H) 6.5 - 8.5 g/dL [facility] Albumin 3.5 3.5 - 5.0 g/dL [facility] Alk phos 123 40 - 130 Units/L [facility] ALT 8 7 - 55 Units/L [facility] AST 6(L) 10 - 50 Units/L [facility] Blood 10/02/2024 1:47 PM CONCRETE BUCKET LOADER 10/02/2024 1:47 PM CONCRETE BUCKET LOADER us Timbo Harris MD LAB BLOOD ORDERABLES Final Res ult [facility] Department [place] [address] * XR Femur Left 2 or More Views (09/29/2024 2:18 PM CONCRETE BUCKET LOADER) Anatomical Region Laterality Modality Lower Extremities, Thigh, Femur Left Computed Radiography 09/29/2024 3:45 PM CONCRETE BUCKET LOADER Impressions 09/29/2024 4:42 PM CONCRETE BUCKET LOADER Unchanged revision left total hip arthroplasty with left proximal femoral resection and endoprosthetic reconstruction in expected position. Dictated by: Justin Banerjee M.D. The radiology attending physician has personally reviewed this study, and had reviewed and/or edited this written report and agrees with it. Electronically signed by: Heath Aparicio D.O. Narrative 09/29/2024 4:42 PM CONCRETE BUCKET LOADER EXAMINATION: XR FEMUR LEFT 2 OR MORE VIEWS HISTORY: History of left total hip arthroplasty COMPARISON: Radiographs 09/14/2024 FINDINGS: Unchanged revision left total hip arthroplasty with left proximal femoral resection and endoprosthetic reconstruction. Interval resorption of antibiotic beads. No periprosthetic lucency or fracture. Surgical drain in unchanged configuration. Persistent soft tissue swelling at the surgical site. Procedure Note Heath Aparicio DO - 09/29/2024 EXAMINATION: XR FEMUR LEFT 2 OR MORE VIEWS HISTORY: History of left total hip arthroplasty COMPARISON: Radiographs 09/14/2024 FINDINGS: Unchanged revision left total hip arthroplasty with left proximal femoral resection and endoprosthetic reconstruction. Interval resorption of antibiotic beads. No periprosthetic lucency or fracture. Surgical drain in unchanged configuration. Persistent soft tissue swelling at the surgical site. IMPRESSION: Unchanged revision left total hip arthroplasty with left proximal femoral resection and endoprosthetic reconstruction in expected position. Dictated by: Justin Banerjee M.D. The radiology attending physician has personally reviewed this study, and had reviewed and/or edited this written report and agrees with it. Electronically signed by: Heath Aparicio D.O. us Joey Richardson MD IMG XR PROCEDURES Final Re sult * Vancomycin level trough (09/28/2024 9:49 AM CONCRETE BUCKET LOADER) Vancomycin trough 16.7 10.0 - 20.0 mcg/mL Blood 09/28/2024 9:49 AM CONCRETE BUCKET LOADER 09/28/2024 2:05 PM CONCRETE BUCKET LOADER us Timbo Harris MD LAB BLOOD ORDERABLES Final Res ult [facility] Department [place] [address] * (ABNORMAL) Lipid panel (09/15/2024 6:59 AM CONCRETE BUCKET LOADER) Cholesterol 112 30 - 199 mg/dL Comment: Interpretive Data Ages < or = 19 years Acceptable: <170 mg/dL Borderline high: 170-199 mg/dL High: >or= 200 mg/dL Ages > or = 20 years Desirable: <200 mg/dL Borderline high: 200-239 mg/dL High: >or= 240 mg/dL Literature References: 1. Expert Panel on Integrated Guidelines for Cardiovascular Health and Risk Reduction in Children and Adolescents. Pediatrics 2011;128:S213 2. NCEP Expert Panel. Circulation 2004;110:227 Current Interpretive Data was last revised on 2018. Triglycerides 92 <=149 mg/dL [facility] Comment: Interpretive Data Ages < or = 9 years Acceptable: <75 mg/dL Borderline high: 75-99 mg/dL High: >or= 100 mg/dL Ages 10 to 20 years Acceptable: <90 mg/dL Borderline high: 90-129 mg/dL High: >or= 130 mg/dL Ages > or = 20 years Desirable: <150 mg/dL Borderline high: 150-199 mg/dL High: 200-499 mg/dL Very high: >or= 499 mg/dL Literature References: 1. Expert Panel on Integrated Guidelines for Cardiovascular Health and Risk Reduction in Children and Adolescents. Pediatrics 2011;128:S213 2. NCEP Expert Panel. Circulation 2004;110:227 Current Interpretive Data was last revised on 2018. HDL 37(L) >=40 mg/dL [facility] Comment: Interpretive Data Ages < or = 19 years Acceptable: >45 mg/dL Borderline low: 40-45 mg/dL Low: <40 mg/dL Ages > or = 20 years Desirable: >or= 60 mg/dL Low: <40 mg/dL Literature References: 1. Expert Panel on Integrated Guidelines for Cardiovascular Health and Risk Reduction in Children and Adolescents. Pediatrics 2011;128:S213 2. NCEP Expert Panel. Circulation 2004;110:227 Current Interpretive Data was last revised on 2018. LDL, calculated 57 <=129 mg/dL [facility] Comment: Interpretive Data Ages < or = 19 years Acceptable: <110 mg/dL Borderline high: 110-129 mg/dL High: >or= 130 mg/dL Ages > or = 20 years Optimal: <100 mg/dL Near optimal: 100-129 mg/dL Borderline high: 130-159 mg/dL High: >160 mg/dL Calculated using the Kirk LDL-C estimating equation. This equation was implemented on 2024. Prior to this date LDL-C was estimated using the Friedewald equation. Literature References: 1. Expert Panel on Integrated Guidelines for Cardiovascular Health and Risk Reduction in Children and Adolescents. Pediatrics 2011;128:S213 2. NCEP Expert Panel. Circulation 2004;110:227 3. Kirk Cantrell al. PEGGY Cardiol. 2020 November 30;5(5):540-548. doi: 10.1001/[email or web address].2020.0013 Current Interpretive Data was last revised on 2024. Non-HDL Cholesterol 75 mg/dL [facility] Comment: Interpretive Data Ages < or = 19 years Acceptable: <120 mg/dL Borderline high: 120-144 mg/dL High: >145 mg/dL Ages > or = 20 years When triglycerides are >200 mg/dL, Non-HDL cholesterol is a secondary target of therapy with treatment goals that are 30 mg/dL greater than the LDL cholesterol target. Literature References: 1. Expert Panel on Integrated Guidelines for Cardiovascular Health and Risk Reduction in Children and Adolescents. Pediatrics 2011;128:S213 2. NCEP Expert Panel. Circulation 2004;110:227 Current Interpretive Data was last revised on 2018. Chol/HDL ratio 3 [facility] Blood 09/15/2024 6:59 AM CONCRETE BUCKET LOADER 09/15/2024 7:36 AM CONCRETE BUCKET LOADER Narrative [facility] - 09/15/2024 5:06 PM CONCRETE BUCKET LOADER Reflex Joey Richardson MD LAB BLOOD ORDERABLES Final Result Performing Organization Address [facility] de Phone Number [facility] Department [place] [address] * (ABNORMAL) POCT hemoglobin A1c (09/11/2024 1:56 PM CONCRETE BUCKET LOADER) Hgb A1C, POC 9.2(H) 4.0 - 5.6 % Est Average Gluc POC 217 mg/dL [facility] Comment: The ADA recommends reporting an estimated Average Glucose (eAG) with all Hemoglobin A1c results using the equation derived from a study of 507 normal and diabetic adults. Minority populations were underrepresented and children were not included. (Diabetes Care 31:0539-4625, 2008). The eAG is not equivalent to a fasting glucose. Blood 09/11/2024 1:56 PM CONCRETE BUCKET LOADER 09/11/2024 1:56 PM CONCRETE BUCKET LOADER Joey Richardson MD POINT OF CARE TEST ORDERAB LES Final Result Performing Organization Address [facility]/ZIP Co de Phone Number [facility] Department of Laboratories [place] [id number] * COLONOSCOPY (04/10/2020 9:19 AM CDT) Anatomical Region Laterality Modality Other Narrative Procedure Note Doc Navarrete MD - 04/10/2020 9:19 AM CDT ENDOSCOPY LAB Patient Name: Alex Amezquita Procedure Date: 04/10/2020 9:19 AM Date of : 1955 Admit Type: Outpatient Age: 64 Gender: Male Attending MD: Doc Navarrete M.D. Room: [facility] ENDOSCOPY ROOM 05 Note Status: Finalized Procedure: Colonoscopy Indications: Surveillance: Personal history of piecemeal removal of large sessile adenoma on last colonoscopy 6 monthsago Providers: Doc Navarrete M.D. Referring MD: Sheridan Yusuf M.D. Medicines: Monitored Anesthesia Care Complications: No immediate complications. Estimated Blood Loss: Estimated blood loss: none. Procedure: Pre-Anesthesia Assessment: - Immediately prior to administration of medications,the patient was re-assessed for adequacy to receivesedatives. The benefits, risks and alternatives of the procedureand sedation were discussed and informed consent wasobtained. All questions were answered. Please refer to the signed informed consent document in the medical record. Thescope was passed under direct vision. The [id number] introduced through the anus and advanced to the cecum, identified by appendiceal orifice and ileocecal valve.The colonoscopy was performed without difficulty. Thepatient tolerated the procedure well. The quality of the bowel preparation was evaluated using the BBPS ([place] Bowel Preparation Scale) with scores of: Right Colon = 2, Transverse Colon = 2 and Left Colon = 2. The total BBPS score equals 6. Bowel prep was administered using asplit dose. Findings: The perianal and digital rectal examinations were normal. A tattoo was seen in the sigmoid colon. A post-polypectomy scar was found at the tattoo site. There was no evidence of residual polyp tissue. Biopsies were taken with a cold forceps for histology. A medium post polypectomy scar was found in the transverse colon. The scar tissue was healthy in appearance. There was no evidence of the previous polyp. A 20 mm polyp was found in the proximal descending colon. The polypwas [place] classification IIb (flat). Preparations were made for mucosal resection. Chromoscopy with methylene blue was done to brad theborders of the lesion. 8 mL of saline with methylene blue was injected with adequate lift of the lesion from the muscularis propria. Piecemeal mucosal resection using a COLD snare with cap retrieval wasperformed. Resection and retrieval were complete. The exam was otherwise without abnormality. Impression: - A tattoo was seen in the sigmoid colon. A post-polypectomy scar was found at the tattoo site.There was no evidence of residual polyp tissue. Biopsied. - Post-polypectomy scar in the transverse colon. - One 20 mm polyp in the proximal descending colon, removed with COLD mucosal resection. Resected and retrieved. - The examination was otherwise normal. Recommendation: - - Repeat colonoscopy in 6 months for surveillance. - No aspirin, ibuprofen, naproxen, or othernon-steroidal anti-inflammatory drugs for 10 days after polypremoval. - Do not lift >25 lb for 10 days to decrease risk of bleeding. - Call my nurses Audrey Deshpande RN in the GI office at [phone] for your final pathology results in 7days. - In the unusual situation that you develop abdominal pain, bleeding or other significant problems in thedays following this procedure please call my office at [phone] ([phone]) to speak to my nurses Audrey Deshpande. After hours and evenings please [phone] and speak to the GI fellow supervisor cell operation. Please tell themthat Dr. Navarrete did your procedure and that your were instructed to have the fellow call me or the physician covering for me to discuss the management of your condition. If you have an urgent problem, please go tothe nearest emergency room and have the ER doctor call my office during the day or the GI Fellow after hours and weekends to arrange admission [facility]. Attending Participation: I personally performed the entire procedure. Electronically signed by Doc Navarrete MD Doc Navarrete M.D. 04/10/2020 9:48:10 AM Number of Addenda: 0 Note Initiated On: 04/10/2020 9:19 AM Doc Navarrete MD ENDOSCOPY PROCEDUR ES Final Result * PSA diagnostic (05/17/2018 11:02 AM CDT) PSA-Total 2.6 <=5.4 ng/mL GABRIELE MIRANDA Comment: Interpretive Data AGE SEX REFERENCE INTERVAL 0 minutes-150 years Female None 0 minutes-49 years Male None 50-59 years Male 0-3.9 60-69 years Male 0-5.4 70-79 years Male 0-6.2 80-150 years Male 0-6.2 Current interpretive data last revised 2018. Blood specimen (specimen) 05/17/2018 11:02 AM CDT 05/17/2018 11:26 AM CDT Narrative GABRIELE MIRANDA - 05/17/2018 11:59 AM CDT Luzma Gutierrez MD LAB BLOOD ORDERABLES Final Re sult GABRIELE MIRANDA [facility] Department [place] [address] * CT Abdomen Pelvis W Contrast (05/17/2018 2:05 AM CDT) Anatomical Region Laterality Modality Body N/A Computed Tomogra phy 05/17/2018 6:58 AM CDT Impressions 05/17/2018 7:02 AM CDT 1. LARGE EXPANSILE LYTIC LESION IN THE PROXIMAL LEFT FEMUR WITH ASSOCIATED PATHOLOGIC FRACTURE. THIS IS HIGHLY CONCERNING FOR NEOPLASM. 2. ASSOCIATED NONOCCLUSIVE THROMBUS WITHIN THE LEFT COMMON FEMORAL VEIN. 3. CHOLELITHIASIS. 4. 3 MM RIGHT MIDDLE LOBE PULMONARY NODULE. FOLLOW-UP PER [employer] RECOMMENDATIONS. Electronically signed by: Osmel Morrison M.D. Narrative 05/17/2018 7:[address] ABDOMEN PELVIS W CONTRAST HISTORY: pathologic fracture of hip, elevated liver enzyme,concern for metastatic cancer. Abdominal pain. TECHNIQUE: Helically acquired axial images were obtained from the dome of the diaphragm to the pubic symphysis. CONTRAST: 100 mL Optiray 320, COMPARISON: None available. FINDINGS: The liver, spleen, pancreas, adrenals, and kidneys are normal. A large gallstone is present within the gallbladder. The small and large bowel are nondilated. There is no evidence of ascites or adenopathy. The pelvic contents appear grossly normal apart from mild prostatic hypertrophy. There is a large expansile lytic lesion within the proximal left femur extending into the femoral neck with associated pathologic fracture. No other focal osseous lesions are identified. A filling defect is present within the left common femoral vein likely indicating venous thrombosis. This is nonocclusive. A 3 mm nodule is present in the right middle lobe. The lung bases are otherwise clear. Procedure Note Osmel Morrison MD - 05/17/2018 CT ABDOMEN PELVIS W CONTRAST HISTORY: pathologic fracture of hip, elevated liver enzyme,concern for metastatic cancer. Abdominal pain. TECHNIQUE: Helically acquired axial images were obtained from the dome of the diaphragm to the pubic symphysis. CONTRAST: 100 mL Optiray 320, COMPARISON: None available. FINDINGS: The liver, spleen, pancreas, adrenals, and kidneys are normal. A large gallstone is present within the gallbladder. The small and large bowel are nondilated. There is no evidence of ascites or adenopathy. The pelvic contents appear grossly normal apart from mild prostatic hypertrophy. There is a large expansile lytic lesion within the proximal left femur extending into the femoral neck with associated pathologic fracture. No other focal osseous lesions are identified. A filling defect is present within the left common femoral vein likely indicating venous thrombosis. This is nonocclusive. A 3 mm nodule is present in the right middle lobe. The lung bases are otherwise clear. IMPRESSION: 1. LARGE EXPANSILE LYTIC LESION IN THE PROXIMAL LEFT FEMUR WITH ASSOCIATED PATHOLOGIC FRACTURE. THIS IS HIGHLY CONCERNING FOR NEOPLASM. 2. ASSOCIATED NONOCCLUSIVE THROMBUS WITHIN THE LEFT COMMON FEMORAL VEIN. 3. CHOLELITHIASIS. 4. 3 MM RIGHT MIDDLE LOBE PULMONARY NODULE. FOLLOW-UP PER [employer] RECOMMENDATIONS. Electronically signed by: Osmel Morrison M.D. Meg Woodward [facility] – [place] CT PROCEDURES Final Result from Last 3 Months or Most Recently Relevant to Health Maintenance Insurance [employer] MEDICARE ADVANTAGE [place] [place] Address: [facility] [address] [place] [address] [employer] MEDICARE ADVANTAGE [employer] [place] [facility] ADVANTAGE [employer] [facility] [place] [facility] [employer] [place] Address: [address] [address] [place] [address] Advance Directives For more information, please contact: [phone] * Full Code (Latest Code Status on File) Date Activated Date Inactivated Comments 09/14/2024 5:30 PM 09/19/2024 6:04 PM * Full Code Date Activated Date Inactivated Comments 07/23/2023 1:00 PM 07/31/2023 4:19 PM * Full Code Date Activated Date Inactivated Comments 07/11/2023 1:35 PM 07/13/2023 9:11 PM * Full Code Date Activated Date Inactivated Comments 07/10/2023 10:03 AM 07/11/2023 1:35 PM * Full Code Date Activated Date Inactivated Comments 04/15/2023 8:49 PM 04/23/2023 6:27 PM Care Teams Weight Caller Relationship Specialty Start Date End Date Rio Bear MD [address] [place] [address] [place] [address] PCP - General Family Medicine 09/30/23 Reinier Martinez MD PhD [address] [place] [id number] Radiation Oncologist Radiation Oncology 06/10/18 Sheridan Yusuf MD [address] [place] [id number] Medical Oncologist/Garment Liner Medical Oncology 06/10/18 Olu Martin MD [address] [place] [id number] Surgeon Orthopedic Surgery 06/10/18 Olimpia Beavers MD [address] [place] [id number] Medical Oncologist/Garment Liner Hematology 09/18/20
--- OUTSIDE RECORDS SUMMARY | 2024-12-26 14:42 | XMS_ITS | Referral Summary ---
Author Organization [facility] Address [address] [place] [address] Care Team Providers Care Fur Designer Name Role Phone Reinier Martinez MD PhD Unavailable [phone] Sheridan Yusuf MD Unavailable [phone] Olu Martin MD Unavailable [phone] Olimpia Beavers MD Unavailable [phone] Rio Bear MD Primary Care Provider + [phone] Encounters Date Type Department Care Team Description 12/15/2024 1:55 PM CDT - 12/15/2024 11:59 PM CDT Hospital Encounter [facility] ([facility]) [address] [place] [address] Joey Richardson MD 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, initial encounter ([facility]) (Primary Dx); H/O total hip arthroplasty, left 11/14/2024 Home Care Visit [address] [place] [address] Michael Virgen, PT PT VIRTUAL OASIS DISCHARGE 11/02/2024 Home Care Visit [address] [place] [address] Dominguez Blanton, [facility] CASE COMMUNICATION 11/02/2024 12:00 PM CDT Home Care Visit [address] [place] [address] Soco Jorgensen, RN SN DISCIPLINE DISCHARGE 10/31/2024 8:30 AM CDT Home Care Visit [address] [place] [address] Soco Jorgensen, [place] SN HOME VISIT 10/28/2024 10:00 AM CDT Home Care Visit [address] [place] [address] Naa Siddiqui LPN SN HOME VISIT 10/27/2024 Home Care Visit [address] [place] [address] Marleen Gomez, OT CASE COMMUNICATION 10/27/2024 3:30 PM CDT Home Care Visit [address] [place] [address] Marleen Gomez, OT OT DISCIPLINE DISCHARGE 10/23/2024 11:00 AM CDT Home Care Visit [address] [place] [address] Soco Jorgensen, RN SN HOME VISIT 10/19/2024 Home Care Visit [address] [place] [address] Dominguez Blanton, JOSE ELASTIC ATTACHER COVERSTITCH DISCIPLINE DISCHARGE 10/19/2024 Home Care Visit [address] [place] [address] Dominguez Blanton, JOSE CASE COMMUNICATION 10/19/2024 10:00 AM CDT Home Care Visit [address] [place] [address] Dominguez Blanton, JOSE ELASTIC ATTACHER COVERSTITCH INITIAL EVAL 10/19/2024 9:30 AM CDT Home Care Visit [address] [place] [address] Soco Jorgensen, [place] SN HOME VISIT 10/18/2024 2:00 PM CDT Home Care Visit [address] [place] [address] Almaz Schulte, KESHAV PT HOME VISIT 10/17/2024 SHOP/CHAP Subsequent Outreach [facility] OP CASE MANAGEMENT [address] [place] [phone] Carla Casillas RN 10/17/2024 Documentation [facility] Infectious Diseases [address] [place] [address] [place] [phone] Johnny Riley Jr., [place] 10/17/2024 Home Care Visit [address] [place] [address] Dominguez Blanton LCSW CASE COMMUNICATION 10/17/2024 Telephone [facility] Infectious Diseases [address] [place] [address] [place] [phone] Brigitte Biswas CMA 10/16/2024 12:00 PM CDT Home Care Visit [address] [place] [address] Soco Jorgensen, RN SN HOME VISIT 10/13/2024 SHOP/CHAP Subsequent Outreach [facility] CASE MANAGEMENT [address] [place] [phone] Jayshree Curtis LCSW 10/13/2024 11:00 AM CDT Home Care Visit [address] [place] [address] Soco Jorgensen RN SN HOME VISIT 10/13/2024 1:00 PM CDT Home Care Visit [address] [place] [address] Ashley Claire COTA OT HOME VISIT 10/12/2024 Telephone [facility] Infectious Diseases [address] [place] [phone] Doris Deshpande, [facility] 10/12/2024 Documentation [facility] Infectious Diseases [address] [place] [phone] Tamia Sheehan ELECTRICAL LABORATORY TECHNICIAN Social Work 10/11/2024 Orders Only [facility] [address] [facility] [address] [place] [phone] Ericka Copeland, [facility] 10/11/2024 Telephone [facility] Infectious Diseases [address] [place] [phone] Johnny Riley Jr., [place] 10/11/2024 Documentation [facility] Infectious Diseases [address] [place] [phone] Johnny Riley Jr., RN 10/11/2024 Home Care Visit [address] [place] [address] Dominguez Blanton ELECTRICAL LABORATORY TECHNICIAN CASE COMMUNICATION 10/11/2024 12:00 PM CDT - 10/11/2024 11:59 PM CDT Hospital Encounter [facility]) [facility] [place] [address] Joey Richardson MD H/O total hip arthroplasty, left Discharge Disposition: Discharge to home or self care 10/11/2024 12:10 PM CDT Office Visit [facility] Orthopaedic Surgery [address] 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, initial encounter 10/10/2024 9:44 AM CDT - 10/10/2024 11:59 PM CDT Hospital Encounter [address] [address] Discharge Disposition: Discharge to home or self care 10/10/2024 9:30 AM CDT Home Care Visit [address] [place] [address] Soco Jorgensen, [place] SN HOME VISIT 10/09/2024 Home Care Visit [address] [place] [address] Zoya Bazan RN SN TRIAGE ENCOUNTER 10/09/2024 9:55 AM CDT - 10/09/2024 11:59 PM CDT Hospital Encounter [address] [address] Discharge Disposition: Discharge to home or self care 10/09/2024 Orders Only [facility] Orthopaedic Surgery [address] [facility] [facility] 6th [place] [address] [place] [phone] Joey Richardson MD H/O total hip arthroplasty, left (Primary Dx) 10/09/2024 9:30 AM CDT Home Care Visit [address] [place] [address] Soco Jorgensen, RN SN HOME VISIT 10/07/2024 Documentation [facility] Infectious Diseases [address] [facility] [address] [place] [phone] Huseyin Arauz MD 10/06/2024 9:31 AM VENEER MATCHER - 10/06/2024 11:59 PM VENEER MATCHER Hospital Encounter [facility] [address] [place] [address] Discharge Disposition: Discharge to home or self care 10/06/2024 9:30 AM VENEER MATCHER Home Care Visit [address] [place] [address] Anjali Wayne SN HOME VISIT 10/05/2024 SHOP/CHAP Subsequent Outreach [facility] CASE MANAGEMENT [address] [place] [phone] Jayshree Curtis, ELECTRICAL LABORATORY TECHNICIAN 10/05/2024 1:00 PM VENEER MATCHER Home Care Visit [address] [place] [address] Desiree Yoo OT OT HOME VISIT 10/05/2024 12:30 PM VENEER MATCHER Home Care Visit [address] [place] [address] Michael Virgen, PT CASE COMMUNICATION 10/04/2024 Home Care Visit [address] [place] [address] Michael Virgen, PT PT INITIAL EVALUATION 10/04/2024 Orders Only [facility] [address] [place] [address] [address] [place] [address] Ericka Copeland, [facility] 10/04/2024 Orders Only [facility] Infectious Diseases [address] [place] [address] [address] [place] [address] Johnny Riley Jr., RN 10/04/2024 Orders Only [facility] Infectious Diseases [address] [place] [address] [address] [place] [address] Timbo Harris MD Infection of prosthetic hip joint, subsequent encounter (Primary Dx); Unable to obtain electricity in residence due to limited financial resources 10/04/2024 Documentation [facility] Infect[facility] Diseases [address] [facility] [address] [place] [phone] Johnny Riley Jr., RN 10/04/2024 Telephone [facility] Infectious Diseases [address] [phone] Johnny Riley Jr., RN 10/02/2024 9:47 AM VENEER MATCHER - 10/02/2024 11:59 PM VENEER MATCHER Hospital Encounter [facility] [address] [place] [address] Discharge Disposition: Discharge to home or self care 10/02/2024 Documentation [facility] Infectious Diseases [address] [place] [phone] Johnny Riley Jr., RN 10/02/2024 9:30 AM VENEER MATCHER Home Care Visit [address] [place] [address] Soco Jorgensen RN SN HOME VISIT 10/01/2024 Home Care Visit [address] [place] [address] Michael Virgen, VIDHYA TELEPHONE ENCOUNTER 09/29/2024 SHOP/CHAP Subsequent Outreach [facility] CASE MANAGEMENT [address] [place] [address] Jayshree Curtis LCSW 09/29/2024 1:30 PM VENEER MATCHER - 09/29/2024 11:59 PM VENEER MATCHER Hospital Encounter [facility] ([facility]) [address] [place] [address] H/O total hip arthroplasty, left Discharge Disposition: Discharge to home or self care 09/29/2024 1:45 PM VENEER MATCHER Office Visit [facility] Orthopaedic Surgery [address] [place] [address] for Advanced Medicine 6th [place] [address] [place] [address] Joey Richardson MD 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, subsequent encounter (Primary Dx); H/O total hip arthroplasty, left; Infection and inflammatory reaction due to internal left hip prosthesis, subsequent encounter; Recurrent dislocation of left hip; Infection of prosthetic hip joint, initial encounter; Plasma cell neoplasm; Closed dislocation of left hip, initial encounter ([facility]) 09/28/2024 9:49 AM VENEER MATCHER - 09/28/2024 11:59 PM VENEER MATCHER Hospital Encounter [facility] [address] [place] [address] Discharge Disposition: Discharge to home or self care 09/28/2024 Telephone [facility] Infectious Diseases [address] [facility] [address] [place] [address] Johnny Riley Jr., RN 09/28/2024 Orders Only [facility] Orthopaedic Surgery [address] [facility] 6th [place] [address] [place] [address] Joey Richardson MD H/O total hip arthroplasty, left (Primary Dx) 09/28/2024 9:30 AM VENEER MATCHER Home Care Visit [place] [address] [address] [place] [address] Soco Jorgensen, H[place] SN HOME VISIT from Last 3 Months Allergies No known active allergies Medications albuterol [...] Active pen needle, diabetic 32 gauge x needleIndicatio ns:DM Use as directed 3 times [...] (two) times a day 176 capsule 5 05/17/2 025 oxyCODONE-aceta minophen (PERCOCET) 5-325 mg per tablet Take 1 tablet by mouth 2 (two) times a day as needed Discontinu ed(Patient Reported) oxyCODONE (ROXICODONE) 5 mg immediate release tabletIndicatio ns:Pain Take 1 tablet (5 mg total) by mouth every 4 (four) hours as needed for pain for up to 42 doses 42 tablet Discontinu ed(Reorder ) Active Problems Problem Noted Date Diagnosed Date Joint prosthesis infection or inflammation, sequ lester 09/14/2024 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 He was recommended surgery, was admitted to [facility] on 09/14/24 and underwent Removal of Left [...] disparity which necessitates close follow up. - ID HAL discussed resources with patient in clinic today. [...] concerns. Assessment & Plan (09/18/2024 4:14 PM VENEER MATCHER): Mr.Carl Amezquita is a 67 y.o. male [...] He was recommended surgery, was admitted to [facility] on 09/14/24 and underwent Removal of Left [...] 07/10/2023 Dislocation of left hip, initial encounter 07/10 Hyperglycemia 04/15/2023 Prosthetic hip infection 04/15/2023 Assessment & Plan (07/27/2023 12:38 PM VENEER MATCHER): Alex Amezquita is a 67 y.o. male [...] by ID to place PICC line for senior care IV antibiotics - Check CBC w/ diff [...] (03/21/2020): Added automatically from request for surgery [id number] History of colon polyps 01/18/2020 Overview (01/18/2020): Added automatically from request for surgery [id number] Abnormal gastrointestinal PET scan 08/04/2019 Overview (08/04/2019): Added automatically from request for surgery [id number] Polyp of colon 08/04/2019 Overview (08/04/2019): Added automatically from request for surgery [id number] nursing home (current) use of opiate analgesic 03/02 Chronic [...] (05/23/2018): Added automatically from request for surgery [id number] Closed fracture of sternum 12/31/2010 Neoplasm related pain High risk medication use Social History Tobacco Use Types Packs/Day Years [...] materials from doctor or pharmacy Never 11/14/2024 [facility] Utilities Answer Date Recorded In the past 12 months has e electric, gas, oil, or water company threatened to shut off services in your [...] often do you attend chur ch or jew services? Never 09/20/2024 Do you belong to any clubs o r organizations such as gnosticist groups, unions, fraternal or athletic groups, or [...] place to sleep or slept in a nursing home (including now)? No 07/29/2023 Housing Stability Vital Sign Answer Mitch e Recorded In the last 12 months, was t here a time when you were not able to pay the mortgage or rent on time? No 09/20/2024 In the past 12 months, how m any times have you moved where you were living? 0 09/20/2024 At any time in the past 12 m [facility], were you homeless or living in a nursing home (including now)? No 09/20/2024 Personal Safety Answer Date Recorded Have you ever been in or are you currently in a harmful physical or emotional relationship or is someone making you feel afraid or unsafe? Denies 09/14/2024 Sex and Gender Information Value Date Recorded Sex Assigned at Not on file Legal Sex Male 7:04 AM VENEER MATCHER Gender Identity Not on file Sexual Orientation [...] 10/11/2024 3:03 PM CDT Plan of Treatment Not on file Goals Goal Patient Goal Type Associated Problems Recent Progress Patient-Stated? Author [facility] No Diamond Britt RN Note: Patient will establish a comfort-function goal and identify the pain level that will allow the patient to perform desired activities and achieve an acceptable quality of life. Medical Devices Implanted Type Area Senior Sustainability Consultant Device Identifier Shelf Expiration Date Model / Serial / Lot Bone Cement Implanted:Qty: 2 on 05/27/2018 by Olu Martin MD at [facility] Left: Femur [employer] 09/29/2020 / / [id number] [employer] [id number] Nexgen 350mm Male To Female Taper Knee Tibial Fibula Component - [id number] Implanted:Qty: 1 on 05/27/2018 by Olu Martin MD at [facility] Left: Femur [employer] [id number] 10/30/2026 [id number] / / [id number] [employer] [id number] Nexgen 80mm Male To Female Taper Knee Tibial Fibula Component - [id number] Implanted:Qty: 1 on 05/27/2018 by Oul Martin MD at [facility] Left: Femur [employer] [id number] 04/01/2023 [id number] / / [id number] [employer] [id number] 38mm Segmental Proximal Offset Component Femoral Trabecular Metal - [id number] Implanted:Qty: 1 on 05/27/2018 by Olu Martin MD at [facility] Left: Femur [employer] [id number] 05/01/2028 [id number] / / [id number] [employer] [id number] Nexgen 15mm 130mm Cemented Segmental Knee Femur Straight Flute - [id number] Implanted:Qty: 1 on 05/27/2018 by Olu Martin MD at [facility] Left: Femur [employer] [id number] 04/01/2026 25452430683 / / [id number] [employer] [id number] 30mm Collar Knee Component Segmental Trabecular Metal 9-16mm Stem - [id number] Implanted:Qty: 1 on 05/27/2018 by Olu Martin MD at [facility] Left: Femur [employer] [id number] 01/29/2023 08382507106 / / [id number] [employer] [id number] Versys Legacy 28mm Hip 0mm 12/14 Taper Head Femoral Zimaloy - [id number] Implanted:Qty: 1 on 05/27/2018 by Olu Martin MD at [facility] Left: Femur [employer] [id number] 03/01/2028 [id number] / / [id number] [employer] [id number] Multipolar 50mm Hip Shell Bipolar Metal - [id number] Implanted:Qty: 1 on 05/27/2018 by Olu Martin MD at [facility] Left: Femur [employer] [id number] 06/01/2023 [id number] / / [id number] [employer] [id number] Versys Ld/Fx 50/51/52mm 28mm Press Fit Cemented Assembly Hip - [id number] Implanted:Qty: 1 on 05/27/2018 by Olu Martin MD at [facility] Left: Femur [employer] [id number] 12/30/2025 73724504509 / / [id number] [employer] Option 28mm Hip -3mm 12/14 Small Head Femoral Biolox Delta 05155676214 - [id number] Implanted:Qty: 1 on 07/11/2023 by Olu Martin MD at [facility] Left: Hip [employer] [id number] 05/01/2029 71057016863 / / [id number] [employer] Ringloc Bio-Ku Ii 49mm 28mm 2 Articulate Surface Lock [id number] - [id number] Implanted:Qty: 1 on 07/11/2023 by Olu Martin MD at [facility] Left: Hip [employer] [id number] 07/15/2027530851 / / [id number] [employer] G7 54mm Multihole Hip F Hemisphere Offset Shell Acetabular 103611785 - [id number] Implanted:Qty: 1 on 07/23/2023 by Joey Richardson MD at [facility] Left: Hip [employer] [id number] 06/11/2033 515127774 / / [id number] [employer] Trilogy 6.5mm 25mm Self Tap Screw Bone 65753991151 - [id number] Implanted:Qty: 1 on 07/23/2023 by Joey Richardson MD at [facility] Left: Hip [employer] [id number] 08/21/2032 05773325363 / / [id number] [employer] Liner Acetabular Hip Vitamin E G7 Matthews Vivacit E 36mm Polyethylene Size F [id number] - [id number] Implanted:Qty: 1 on 07/23/2023 by Joey Richardson MD at [facility] Left: Hip [employer] [id number] 05/10/2028 86809128 / / [id number] [employer] Trilogy 6.5mm 25mm Self Tap Screw Bone 59968418103 - [id number] Implanted:Qty: 1 on 07/23/2023 by Joey Richardson MD at [facility] Left: Hip [employer] [id number] 08/14/2032 14294866204 / / [id number] [employer] Trilogy 6.5mm 15mm Self Tap Screw Bone 74576338933 - [id number] Implanted:Qty: 1 on 07/23/2023 by Joey Richardson MD at [facility] Left: Hip [employer] [id number] 03/04/2033 [id number] / / [id number] [employer] Trilogy 6.5mm 20mm Self Tap Screw Bone 61571449772 - [id number] Implanted:Qty: 1 on 07/23/2023 by Joey Richardson MD at [facility] Left: Hip [employer] [id number] 10/16/2032 [id number] / / [id number] [employer] Trilogy 6.5mm 20mm Self Tap Screw Bone 43600104050 - [id number] Implanted:Qty: 1 on 07/23/2023 by Joey Richardson MD at [facility] Left: Hip [employer] [id number] 07/31/2032 78253885578 / / [id number] [employer] Trilogy 6.5mm 40mm Self Tap Hip Acetabular Cortical Screw Bone 97461312414 - [id number] Implanted:Qty: 1 on 07/23/2023 by Joey Richardson MD at [facility] Left: Hip [employer] [id number] 08/19/2032 [id number] / / [id number] [employer] Trilogy 6.5mm 50mm Self Tap Hip Acetabular Cortical Screw Bone 87231044379 - [id number] Implanted:Qty: 1 on 07/23/2023 by Joey Richardson MD at [facility] Left: Hip [employer] [id number] 12/23/2032 48695004623 / / [id number] [employer] Trilogy 6.5mm 30mm Self Tap Acetabular Cortical Screw Bone 15243579935 - [id number] Implanted:Qty: 1 on 07/23/2023 by Joey Richardson MD at [facility] Left: Hip [employer] [id number] 03/13/2033 63636835352 / / [id number] [employer] Trilogy 6.5mm 50mm Self Tap Hip Acetabular Cortical Screw Bone 29766598403 - [id number] Implanted:Qty: 1 on 07/23/2023 by Joey Richardson MD at [facility] Left: Hip [employer] [id number] 12/25/2032 21293267335 / / [id number] [employer] 38mm Segmental Proximal Offset Component Femoral Trabecular Metal 08815166456 - [id number] Implanted:Qty: 1 on 07/23/2023 by Joey Richardson MD at [facility] Left: Hip [employer] [id number] 06/18/2033 06899299953 / / [id number] [employer] Nexgen 60mm Male To Female Taper Knee Tibial Fibula Component 43956750004 - [id number] Implanted:Qty: 1 on 07/23/2023 by Joey Richardson MD at [facility] Left: Hip [employer] [id number] 03/01/2029 85223990250 / / [id number] [employer] Nexgen 350mm Male To Female Taper Knee Tibial Fibula Component 53880045694 - [id number] Implanted:Qty: 1 on 07/23/2023 by Joey Richardson MD at [facility] Left: Hip [employer] [id number] 07/01/2028 55134317311 / / [id number] [employer] Nexgen 50mm Male To Female Taper Knee Tibial Fibula Component 59628816413 - [id number] Implanted:Qty: 1 on 07/23/2023 by Joey Richardson MD at [facility] Left: Hip [employer] [id number] 11/08/2032 54119314105 / / [id number] [employer] Matthews Hip +0mm 07/15 Taper Head Femoral Sterile Latex Free 662066370 - [id number] Implanted:Qty: 1 on 07/23/2023 by Joey Richardson MD at [facility] Left: Hip [employer] [id number] 04/16/2032 [id number] / / [id number] [employer] Orthopedic Synthetic Bone Void Filler Cerament I7965-49 - [id number] Implanted:Qty: 1 on 09/14/2024 by Joey Richardson MD at [facility] Left: Femur [employer] 06/10/2027 P5621-43 / / [id number] Description:Mixed with Vanco mycin 1 gram. [employer] Liner Acetabular Hip Vitamin E G7 Matthews Vivacit E 36mm Polyethylene Size F 43489463 - [id number] Implanted:Qty: 1 on 09/14/2024 by Joey Richardson MD at [facility] Left: Femur [employer] [id number] 07/05/2029 44302136 / / [id number] [employer] Simplex P Full Dose Radiopaque Preblend Cement Bone Tobramycin 6197-9-001 - [id number] Implanted:Qty: 2 on 09/14/2024 by Joey Richardson MD at [facility] Left: Femur [employer] [id number] 11/29/2025 6197-9-001 / / [id number] [employer] 25mm Collar Knee Component Segmental Trabecular Metal 9-16mm Stem 43093287875 - [id number] Implanted:Qty: 1 on 09/14/2024 by Joey Richardson MD at [facility] [facility] Left: Femur [employer] [id number] 11/25/2025 [id number] / / [id number] [employer] Nexgen 12mm 130mm Cemented Segmental Knee Femur Straight Flute [id number] - [id number] Implanted:Qty: 1 on 09/14/2024 by Joey Richardson MD at [facility] Left: Femur [employer] [id number] 09/03/2033 [id number] / / [id number] [employer] Simplex P Full Dose Radiopaque Preblend Cement Bone Tobramycin 6197-9-001 - [id number] Implanted:Qty: 2 on 09/14/2024 by Joey Richardson MD at [facility] Left: Femur [employer] [id number] 09/01/2025 6197-9-001 / / [id number] [employer] Head Femoral Hip 07/15 Taper Matthews 36mm Justice Chromium 6mm Offset [id number] - [id number] Implanted:Qty: 1 on 09/14/2024 by Joey Richardson MD at [facility] Left: Femur [employer] 04/14/2033 [id number] / / [id number] Procedures Procedure Name Priority Date/Time Associated Diagnosis [...] AM CDT EGFR Routine 10/06/2024 9:31 AM VENEER MATCHER VANCOMYCIN LEVEL TROUGH Routine 10/06/2024 9:31 AM VENEER MATCHER DIFFERENTIAL AUTO Routine 10/06/2024 9:3 1 AM VENEER MATCHER CRP (ACUTE PHASE) Routine 10/06/2024 9:3 1 AM VENEER MATCHER ERYTHROCYTE SEDIMENTATION RATE Routine 10/06/2024 9:31 AM VENEER MATCHER CBC WITH AUTO DIFFERENTIAL Routine 10/06/2024 9:31 AM [employer]ENEER MATCHER COMPREHENSIVE METABOLIC PANEL Routine 10/06/2024 9:31 AM VENEER MATCHER EGFR Routine 10/02/2024 1:47 PM [employer]ENEER MATCHER VANCOMYCIN LEVEL TROUGH Routine 10/02/2024 1:47 PM [employer]ENEER MATCHER DIFFERENTIAL AUTO Routine 10/02/2024 1:4 7 PM [employer]ENEER M[employer]ER CBC WITH AUTO DIFFERENTIAL Routine 10/02/2024 1:47 PM [employer]ENEER MATCHER COMPREHENSIVE METABOLIC PANEL Routine 10/02/2024 1:47 PM VENEER MATCHER XR FEMUR LEFT 2 OR MORE VIEWS Routine 09/29/2024 2:18 PM VENEER MATCHER H/O total hip arthroplasty, left VANCOMYCIN LEVEL TROUGH Routine 09/28/2024 9:49 AM VENEER MATCHER LIPID PANEL Routine 09/15/2024 6:59 AM VENEER MATCHER POCT HEMOGLOBIN A1C Routine 09/11/2024 1 :56 PM VENEER MATCHER COLONOSCOPY 04/10/2020 9:19 AM CDT PSA DIAGNOSTIC [...] by: Surinder Singer MD Joey Richardson MD [employer] XR PROCEDURES Final Re sult * XR [...] by: Surinder Singer MD Joey Richardson MD [employer] XR PROCEDURES Final Re sult * XR [...] femur Electronically signed by: Rolanda Matamoros MD us Joey Richardson MD IMG XR PROCEDURES Final Re sult * eGFR (10/10/2024 9:44 AM CDT) Pathologist [facility] eGFR >90 >=60 mL/min/1. 73 m2 Comment: [...] MD LAB BLOOD ORDERABLES Final Res ult [facility] Department of Laboratories [place], [place] [id number] * Differential, auto (10/10/2024 9:44 AM CDT) Pathologist [facility] Neutrophil abs 3.3 1.5 - 6.5 K/cumm Imm gran abs 0.0 0.0 - 0.1 K/cumm [facility] Lymphocyte abs 1.6 0.8 - 3.3 K/cumm [facility] Monocyte abs 0.5 0.2 - 0.8 K/cumm [facility] Eosinophil abs 0.3 0.0 - 0.5 K/cumm [facility] Basophil abs 0.0 0.0 - 0.1 K/cumm [facility] Neutrophil pct 57.6 % [facility] Comment: Interpretive Data Percent cell count reference ranges are not reported, since discordance with absolute values may lead to misinterpretation of CBC data. Current Interpretive Data was last revised on 2017. Imm gran pct 0.2 % [facility] Comment: Interpretive Data Percent cell count reference ranges are not reported, since discordance with absolute values may lead to misinterpretation of CBC data. Current Interpretive Data was last revised on 2017. Lymphocyte pct 28.4 % [facility] Comment: Interpretive Data Percent cell count reference ranges are not reported, since discordance with absolute values may lead to misinterpretation of CBC data. Current Interpretive Data was last revised on 2017. Monocyte pct 8.8 % [facility] Comment: Interpretive Data Percent cell count reference ranges are not reported, since discordance with absolute values may lead to misinterpretation of CBC data. Current Interpretive Data was last revised on 2017. Eosinophil pct 4.6 % [facility] Comment: Interpretive Data Percent cell count reference ranges are not reported, since discordance with absolute values may lead to misinterpretation of CBC data. Current Interpretive Data was last revised on 2017. Basophil pct 0.4 % [facility] Comment: Interpretive Data Percent cell count reference ranges are not reported, since discordance with absolute values may lead to misinterpretation of CBC data. Current Interpretive Data was last revised on 2017. Blood 10/10/2024 9:44 AM CDT 10/10/2024 10:59 AM CDT us Timbo Harris MD LAB BLOOD ORDERABLES Final Res ult [facility] Department [place] [address] * (ABNORMAL) CBC with auto differential (10/10/2024 9:44 AM CDT) WBC 5.7 3.8 - 9.9 K/cumm Hgb 10.8(L) 13.0 - 17.5 g/dL [facility] Hct 35.9(L) 38.9 - 50.3 % [facility] Plt 279 150 - 400 K/cumm [facility] MPV 9.9 9.1 - 12.3 fL [facility] RBC 4.89 4.30 - 5.80 M/cumm [facility] MCV 73.4(L) 81.3 - 96.4 fL [facility] MCH 22.1(L) 27.1 - 33.3 pg [facility] MCHC 30.1(L) 32.3 - 35.7 g/dL [facility] RDW CV 20.0(H) 11.1 - 14.9 % [facility] RDW SD 53.3(H) 35.7 - 48.1 fL [facility] NRBC abs 0.00 0.00 - 0.01 K/cumm [facility] Blood 10/10/2024 9:44 AM CDT 10/10/2024 10:59 AM CDT Timbo Harris MD LAB BLOOD ORDERABLES Final Res ult Performing Organization Address City/[facility]/ZIP Co de Phone Number [facility] Department of [employer] [place], [place] [id number] * Vancomycin level trough (10/10/2024 9:44 AM CDT) Pathologist [facility] Vancomycin trough 16.5 10.0 - 20.0 mcg/mL Blood 10/10/2024 9:44 AM CDT 10/10/2024 10:58 AM CDT Timbo Harris MD LAB BLOOD ORDERABLES Final Res ult [facility] [place] [address] * Comprehensive metabolic panel (10/10/2024 9:44 AM CDT) Sodium 141 135 - 145 mmol/L Potassium, pl 3.5 3.3 - 4.9 mmol/L [facility] Comment:Repeated and Verifie d Chloride 102 97 - 110 mmol/L [facility] CO2 31 22 - 32 mmol/L [facility] Anion gap 8 2 - 15 mmol/L [facility] BUN 13 6 - 25 mg/dL [facility] Creatinine 0.89 0.80 - 1.30 mg/dL [facility] Glucose 186 70 - 199 mg/dL [facility] Comment: Interpretive Data Fasting glucose >/= [...] 2022. Calcium 9.2 8.5 - 10.3 mg/dL [facility] Bilirubin, total 0.2 0.1 - 1.2 mg/dL [facility] Protein, pl 8.2 6.5 - 8.5 g/dL [facility] Albumin 3.7 3.5 - 5.0 g/dL [facility] Alk phos 117 40 - 130 Units/L [facility] ALT 10 7 - 55 Units/L [facility] AST 16 10 - 50 Units/L [facility] Blood 10/10/2024 9:44 AM CDT 10/10/2024 10:58 AM CDT us Timbo Harris MD LAB BLOOD ORDERABLES Final Res ult [facility] Department [place] [address] * Differential, auto (10/09/2024 1:18 PM CDT) Neutrophil abs 3.7 1.5 - 6.5 K/cumm Imm gran abs 0.0 0.0 - 0.1 K/cumm [facility] Lymphocyte abs 1.6 0.8 - 3.3 K/cumm [facility] Monocyte abs 0.6 0.2 - 0.8 K/cumm [facility] Eosinophil abs 0.3 0.0 - 0.5 K/cumm [facility] Basophil abs 0.0 0.0 - 0.1 K/cumm [facility] Neutrophil pct 59.2 % [facility] Comment: Interpretive Data Percent cell count reference ranges are not reported, since discordance with absolute values may lead to misinterpretation of CBC data. Current Interpretive Data was last revised on 2017. Imm gran pct 0.3 % [facility] Comment: Interpretive Data Percent cell count reference ranges are not reported, since discordance with absolute values may lead to misinterpretation of CBC data. Current Interpretive Data was last revised on 2017. Lymphocyte pct 25.9 % [facility] Comment: Interpretive Data Percent cell count reference ranges are not reported, since discordance with absolute values may lead to misinterpretation of CBC data. Current Interpretive Data was last revised on 2017. Monocyte pct 9.1 % [facility] Comment: Interpretive Data Percent cell count reference ranges are not reported, since discordance with absolute values may lead to misinterpretation of CBC data. Current Interpretive Data was last revised on 2017. Eosinophil pct 5.0 % [facility] Comment: Interpretive Data Percent cell count reference ranges are not reported, since discordance with absolute values may lead to misinterpretation of CBC data. Current Interpretive Data was last revised on 2017. Basophil pct 0.5 % [facility] Comment: Interpretive Data Percent cell count reference ranges are not reported, since discordance with absolute values may lead to misinterpretation of CBC data. Current Interpretive Data was last revised on 2017. Blood 10/09/2024 1:18 PM CDT 10/09/2024 1:56 PM CDT us Timbo Harris MD LAB BLOOD ORDERABLES Final Res ult [facility] Department [place] [address] * (ABNORMAL) CBC with auto differential (10/09/2024 1:18 PM CDT) [facility] WBC 6.2 3.8 - 9.9 K/cumm Hgb 11.7(L) 13.0 - 17.5 g/dL [facility] Hct 38.3(L) 38.9 - 50.3 % [facility] Plt 275 150 - 400 K/cumm [facility] MPV 10.5 9.1 - 12.3 fL [facility] RBC 5.28 4.30 - 5.80 M/cumm [facility] MCV 72.5(L) 81.3 - 96.4 fL [facility] MCH 22.2(L) 27.1 - 33.3 pg [facility] MCHC 30.5(L) 32.3 - 35.7 g/dL [facility] RDW CV 20.6(H) 11.1 - 14.9 % [facility] RDW SD 53.3(H) 35.7 - 48.1 fL [facility] NRBC abs 0.00 0.00 - 0.01 K/cumm [facility] Blood 10/09/2024 1:18 PM CDT 10/09/2024 1:56 PM CDT us Timbo Harris MD LAB BLOOD ORDERABLES Final Res ult [facility] Department [place] [address] * eGFR (10/09/2024 9:55 AM CDT) [facility] eGFR See Comment >=60 Comment: Credited: Sample [...] BLOOD ORDERABLES Edited Re sult - Final [facility] [place] [address] * Critical Result Callback Chemistry (10/09/2024 9:55 AM CDT) Date Notified [id number] Time Notified 1649 [facility] TestName K, Ca [facility] Called/Read Back Karma Copeland/ Nilda Bazan (RN) [facility] Credentials PharmD [facility] Called By yq [facility] Blood 10/09/2024 9:55 AM CDT 10/09/2024 1:56 PM CDT us Timbo Harris MD LAB BLOOD ORDERABLES Final Res ult [facility] Department [place] [address] * Vancomycin level trough (10/09/2024 9:55 AM [...] Deleted at the Request of Karma Copeland (PharmRebekah) on 10/09/2024 17:30:25 CDT by arie . Blood 10/09/2024 9:55 AM CDT 10/09/2024 1:38 PM CDT us Timbo Harris MD LAB BLOOD ORDERABLES Edited Re sult - Final [facility] [place] [address] * Comprehensive metabolic panel (10/09/2024 9:55 AM [...] Copeland (PharmD) on 10/09/2024 17:30:25 CDT by ymaria l . Potassium, pl See Comment 3.3 - 4.9 mmol/L [facility] Comment: Sample investigated and [...] Chloride See Comment 97 - 110 mmol/L [facility] Comment: Sample investigated and found to [...] CO2 See Comment 22 - 32 mmol/L [facility] Comment: Sample investigated and found to [...] gap See Comment 2 - 15 mmol/L [facility] Comment: Sample investigated and found to [...] BUN See Comment 6 - 25 mg/dL [facility] Comment: Sample investigated and found to [...] Creatinine See Comment 0.80 - 1.30 mg/dL [facility] Comment: Sample investigated and found to be analytically accurate. If results do not match clinical presentation, improper collection (e.g., IV fluid contamination, improper tube type, mislabel) should be considered and re-collection recommended. Credited: Sample investigated and is suggestive of an improper collection (e.g., IV fluid contamination, improper tube type). Deleted at the Request of Karma Copeland (PharmRebekah) on 10/09/2024 17:30:25 CDT by ymaria l . Glucose See Comment 70 - 199 mg/dL [facility] Comment: Interpretive Data Fasting glucose >/= [...] Copeland (PharmD) on 10/09/2024 17:30:25 CDT by ymaria l . Calcium See Comment 8.5 - 10.3 mg/dL [facility] Comment: Repeated and Verified Sample investigated and [...] total See Comment 0.1 - 1.2 mg/dL [facility] Comment: Sample investigated and found to [...] pl See Comment 6.5 - 8.5 g/dL [facility] Comment: Sample investigated and found to [...] Albumin See Comment 3.5 - 5.0 g/dL [facility] Comment: Sample investigated and found to [...] phos See Comment 40 - 130 Units/L [facility] Comment: Sample investigated and found to [...] ALT See Comment 7 - 55 Units/L [facility] Comment: Sample investigated and found to be analytically accurate. If results do not match clinical presentation, improper collection (e.g., IV fluid contamination, improper tube type, mislabel) should be considered and re-collection recommended. Credited: Sample investigated and is suggestive of an improper collection (e.g., IV fluid contamination, improper tube type). Deleted at the Request of Karma Copeland (PharmD) on 10/09/2024 17:30:25 CDT by arie . AST See Comment 10 - 50 Units/L [facility] Comment: Sample investigated and found to be analytically accurate. If results do not match clinical presentation, improper collection (e.g., IV fluid contamination, improper tube type, mislabel) should be considered and re-collection recommended. Credited: Sample investigated and is suggestive of an improper collection (e.g., IV fluid contamination, improper tube type). Deleted at the Request of Karma Copeland (PharmD) on 10/09/2024 17:30:25 CDT by arie . Blood 10/09/2024 9:55 AM CDT 10/09/2024 1:38 PM CDT us Timbo Harris MD LAB BLOOD ORDERABLES Edited Re sult - Final [facility] [place] [address] * eGFR (10/06/2024 9:31 AM VENEER MATCHER) eGFR 78 >=60 mL/min/1. 73 m2 Comment: [...] last reviewed 2021. Blood 10/06/2024 9:31 AM VENEER MATCHER 10/06/2024 12:23 PM VENEER MATCHER us Timbo Harris MD LAB BLOOD ORDERABLES Final Res ult [facility] Department [place] [address] * Differential, auto (10/06/2024 9:31 AM VENEER MATCHER) Neutrophil abs 3.8 1.5 - 6.5 K/cumm Imm gran abs 0.0 0.0 - 0.1 K/cumm [facility] Lymphocyte abs 2.2 0.8 - 3.3 K/cumm [facility] Monocyte abs 0.7 0.2 - 0.8 K/cumm [facility] Eosinophil abs 0.2 0.0 - 0.5 K/cumm [facility] Basophil abs 0.0 0.0 - 0.1 K/cumm [facility] Neutrophil pct 54.7 % [facility] Comment: Interpretive Data Percent cell count reference ranges are not reported, since discordance with absolute values may lead to misinterpretation of CBC data. Current Interpretive Data was last revised on 2017. Imm gran pct 0.3 % [facility] Comment: Interpretive Data Percent cell count reference ranges are not reported, since discordance with absolute values may lead to misinterpretation of CBC data. Current Interpretive Data was last revised on 2017. Lymphocyte pct 31.5 % [facility] Comment: Interpretive Data Percent cell count reference ranges are not reported, since discordance with absolute values may lead to misinterpretation of CBC data. Current Interpretive Data was last revised on 2017. Monocyte pct 9.9 % [facility] Comment: Interpretive Data Percent cell count reference ranges are not reported, since discordance with absolute values may lead to misinterpretation of CBC data. Current Interpretive Data was last revised on 2017. Eosinophil pct 3.3 % [facility] Comment: Interpretive Data Percent cell count reference ranges are not reported, since discordance with absolute values may lead to misinterpretation of CBC data. Current Interpretive Data was last revised on 2017. Basophil pct 0.3 % [facility] Comment: Interpretive Data Percent cell count reference ranges are not reported, since discordance with absolute values may lead to misinterpretation of CBC data. Current Interpretive Data was last revised on 2017. Blood 10/06/2024 9:31 AM VENEER MATCHER 10/06/2024 12:23 PM VENEER MATCHER us Timbo Harris MD LAB BLOOD ORDERABLES Final Res ult [facility] Department [place] [address] * (ABNORMAL) CBC with auto differential (10/06/2024 9:31 AM VENEER MATCHER) WBC 7.0 3.8 - 9.9 K/cumm Hgb 11.2(L) 13.0 - 17.5 g/dL [facility] Hct 37.1(L) 38.9 - 50.3 % [facility] Plt 333 150 - 400 K/cumm [facility] MPV 9.5 9.1 - 12.3 fL [facility] RBC 5.09 4.30 - 5.80 M/cumm [facility] MCV 72.9(L) 81.3 - 96.4 fL [facility] MCH 22.0(L) 27.1 - 33.3 pg [facility] MCHC 30.2(L) 32.3 - 35.7 g/dL [facility] RDW CV 20.5(H) 11.1 - 14.9 % [facility] RDW SD 53.6(H) 35.7 - 48.1 fL [facility] NRBC abs 0.00 0.00 - 0.01 K/cumm [facility] Blood 10/06/2024 9:31 AM VENEER MATCHER 10/06/2024 12:23 PM VENEER MATCHER Timbo Harris MD LAB BLOOD ORDERABLES Final Res ult Performing Organization Address [facility] Co de Phone Number [facility] [place] [address] * (ABNORMAL) Erythrocyte sedimentation rate (10/06/2024 9:31 AM VENEER MATCHER) Erythrocyte sedimentation rate 39(H) 1 - 20 mm/hr Blood 10/06/2024 9:31 AM VENEER MATCHER 10/06/2024 12:23 PM VENEER MATCHER Timbo Harris MD LAB BLOOD ORDERABLES Final Res ult Performing Organization Address [facility] Co de Phone Number [facility] [place] [address] * CRP (acute phase) (10/06/2024 9:31 AM VENEER MATCHER) CRP 8.9 <=10.0 mg/L Blood 10/06/2024 9:31 AM VENEER MATCHER 10/06/2024 12:23 PM VENEER MATCHER Timbo Harris MD LAB BLOOD ORDERABLES Final Res ult Performing Organization Address [facility] Co de Phone Number [facility] [place] [address] * Vancomycin level trough (10/06/2024 9:31 AM VENEER MATCHER) Vancomycin trough 19.9 10.0 - 20.0 mcg/mL Blood 10/06/2024 9:31 AM VENEER MATCHER 10/06/2024 12:23 PM VENEER MATCHER us Timbo Harris MD LAB BLOOD ORDERABLES Final Res ult [facility] Department [place] [address] * (ABNORMAL) Comprehensive metabolic panel (10/06/2024 9:31 AM VENEER MATCHER) Sodium 139 135 - 145 mmol/L Potassium, pl 3.7 3.3 - 4.9 mmol/L [facility] Chloride 99 97 - 110 mmol/L [facility] CO2 31 22 - 32 mmol/L [facility] Anion gap 9 2 - 15 mmol/L [facility] BUN 20 6 - 25 mg/dL [facility] Creatinine 1.05 0.80 - 1.30 mg/dL [facility] Glucose 115 70 - 199 mg/dL [facility] Comment: Interpretive Data Fasting glucose >/= [...] 2022. Calcium 9.3 8.5 - 10.3 mg/dL [facility] Bilirubin, total 0.2 0.1 - 1.2 mg/dL [facility] Protein, pl 8.6(H) 6.5 - 8.5 g/dL [facility] Albumin 3.8 3.5 - 5.0 g/dL [facility] Alk phos 124 40 - 130 Units/L [facility] ALT 7 7 - 55 Units/L [facility] AST 15 10 - 50 Units/L [facility] Blood 10/06/2024 9:31 AM VENEER MATCHER 10/06/2024 12:23 PM VENEER MATCHER Timbo Harris MD LAB BLOOD ORDERABLES Final Res ult Performing Organization Address [facility] Co de Phone Number [facility] Department [place] [address] * eGFR (10/02/2024 1:47 PM VENEER MATCHER) eGFR 86 >=60 mL/min/1. 73 m2 Comment: [...] last reviewed 2021. Blood 10/02/2024 1:47 PM VENEER MATCHER 10/02/2024 1:55 PM VENEER MATCHER us Timbo Harris MD LAB BLOOD ORDERABLES Final Res ult Performing Organization Address [facility] Co de Phone Number [facility] Department [place] [address] * Differential, auto (10/02/2024 1:47 PM VENEER MATCHER) Neutrophil abs 4.7 1.5 - 6.5 K/cumm Imm gran abs 0.0 0.0 - 0.1 K/cumm [facility] Lymphocyte abs 1.4 0.8 - 3.3 K/cumm [facility] Monocyte abs 0.7 0.2 - 0.8 K/cumm [facility] Eosinophil abs 0.3 0.0 - 0.5 K/cumm [facility] Basophil abs 0.0 0.0 - 0.1 K/cumm [facility] Neutrophil pct 65.7 % [facility] Comment: Interpretive Data Percent cell count reference ranges are not reported, since discordance with absolute values may lead to misinterpretation of CBC data. Current Interpretive Data was last revised on 2017. Imm gran pct 0.3 % [facility] Comment: Interpretive Data Percent cell count reference ranges are not reported, since discordance with absolute values may lead to misinterpretation of CBC data. Current Interpretive Data was last revised on 2017. Lymphocyte pct 20.0 % [facility] Comment: Interpretive Data Percent cell count reference ranges are not reported, since discordance with absolute values may lead to misinterpretation of CBC data. Current Interpretive Data was last revised on 2017. Monocyte pct 9.8 % [facility] Comment: Interpretive Data Percent cell count reference ranges are not reported, since discordance with absolute values may lead to misinterpretation of CBC data. Current Interpretive Data was last revised on 2017. Eosinophil pct 3.8 % [facility] Comment: Interpretive Data Percent cell count reference ranges are not reported, since discordance with absolute values may lead to misinterpretation of CBC data. Current Interpretive Data was last revised on 2017. Basophil pct 0.4 % [facility] Comment: Interpretive Data Percent cell count reference ranges are not reported, since discordance with absolute values may lead to misinterpretation of CBC data. Current Interpretive Data was last revised on 2017. Blood 10/02/2024 1:47 PM VENEER MATCHER 10/02/2024 1:47 PM VENEER MATCHER us Timbo Harris MD LAB BLOOD ORDERABLES Final Res ult [facility] [place] [address] * (ABNORMAL) CBC with auto differential (10/02/2024 1:47 PM VENEER MATCHER) WBC 7.1 3.8 - 9.9 K/cumm Hgb 11.0(L) 13.0 - 17.5 g/dL [facility] Hct 36.1(L) 38.9 - 50.3 % [facility] Plt 368 150 - 400 K/cumm [facility] MPV 9.4 9.1 - 12.3 fL [facility] RBC 4.91 4.30 - 5.80 M/cumm [facility] MCV 73.5(L) 81.3 - 96.4 fL [facility] MCH 22.4(L) 27.1 - 33.3 pg [facility] MCHC 30.5(L) 32.3 - 35.7 g/dL [facility] RDW CV 21.1(H) 11.1 - 14.9 % [facility] RDW SD 55.4(H) 35.7 - 48.1 fL [facility] NRBC abs 0.00 0.00 - 0.01 K/cumm [facility] Blood 10/02/2024 1:47 PM VENEER MATCHER 10/02/2024 1:47 PM VENEER MATCHER Timbo Harris MD LAB BLOOD ORDERABLES Final Res ult Performing Organization Address City/[facility] Co de Phone Number [facility] Department [place] [address] * Vancomycin level trough (10/02/2024 1:47 PM VENEER MATCHER) Pathologist [facility] Vancomycin trough 17.9 10.0 - 20.0 mcg/mL Blood 10/02/2024 1:47 PM VENEER MATCHER 10/02/2024 1:47 PM VENEER MATCHER Timbo Harris MD LAB BLOOD ORDERABLES Final Res ult [facility] [place] [address] * (ABNORMAL) Comprehensive metabolic panel (10/02/2024 1:47 PM VENEER MATCHER) Sodium 137 135 - 145 mmol/L Potassium, pl 4.0 3.3 - 4.9 mmol/L [facility] Chloride 98 97 - 110 mmol/L [facility] CO2 31 22 - 32 mmol/L [facility] Anion gap 8 2 - 15 mmol/L [facility] BUN 12 6 - 25 mg/dL [facility] Creatinine 0.97 0.80 - 1.30 mg/dL [facility] Glucose 183 70 - 199 mg/dL [facility] Comment: Interpretive Data Fasting glucose >/= [...] 2022. Calcium 9.4 8.5 - 10.3 mg/dL [facility] Bilirubin, total 0.3 0.1 - 1.2 mg/dL [facility] Protein, pl 8.6(H) 6.5 - 8.5 g/dL [facility] Albumin 3.5 3.5 - 5.0 g/dL [facility] Alk phos 123 40 - 130 Units/L [facility] ALT 8 7 - 55 Units/L [facility] AST 6(L) 10 - 50 Units/L [facility] Blood 10/02/2024 1:47 PM VENEER MATCHER 10/02/2024 1:47 PM VENEER MATCHER us Timbo Harris MD LAB BLOOD ORDERABLES Final Res ult [facility] Department [place] [address] * XR Femur Left 2 or More Views (09/29/2024 2:18 PM VENEER MATCHER) Anatomical Region Laterality Modality Lower Extremities, Thigh, Femur Left Computed Radiography 09/29/2024 3:45 PM VENEER MATCHER Impressions 09/29/2024 4:42 PM VENEER MATCHER Unchanged revision left total hip arthroplasty with left proximal femoral resection and endoprosthetic reconstruction in expected position. Dictated by: Justin Banerjee M.D. The radiology attending physician has personally reviewed this study, and had reviewed and/or edited this written report and agrees with it. Electronically signed by: Heath Apraicio D.O. Narrative 09/29/2024 4:42 PM VENEER MATCHER EXAMINATION: XR FEMUR LEFT 2 OR MORE VIEWS HISTORY: History of left total hip arthroplasty COMPARISON: Radiographs 09/14/2024 FINDINGS: Unchanged revision left total hip arthroplasty with left proximal femoral resection and endoprosthetic reconstruction. Interval resorption of antibiotic beads. No periprosthetic lucency or fracture. Surgical drain in unchanged configuration. Persistent soft tissue swelling at the surgical site. Procedure Note Heath Aparicio, DO - 09/29/2024 EXAMINATION: XR FEMUR LEFT [...] it. Electronically signed by: Heath Aparicio D.O. Joey Richardson MD IMG XR PROCEDURES Final Re sult * Vancomycin level trough (09/28/2024 9:49 AM VENEER MATCHER) Vancomycin trough 16.7 10.0 - 20.0 mcg/mL Blood 09/28/2024 9:49 AM VENEER MATCHER 09/28/2024 2:05 PM VENEER MATCHER iTmbo Harris MD LAB BLOOD ORDERABLES Final Res ult [facility] Department [place] [address] * (ABNORMAL) Lipid panel (09/15/2024 6:59 AM VENEER MATCHER) Cholesterol 112 30 - 199 mg/dL Comment: [...] revised on 2018. Triglycerides 92 <=149 mg/dL [facility] Comment: Interpretive Data Ages < or = [...] revised on 2018. HDL 37(L) >=40 mg/dL [facility] Comment: Interpretive Data Ages < or = [...] on 2018. LDL, calculated 57 <=129 mg/dL [facility] Comment: Interpretive Data Ages < or = [...] NCEP Expert Panel. Circulation 2004;110:227 3. Kirk Dorman et al. PEGGY Cardiol. 2019November 30;5(5):540-548. doi: 10.1001/jamacardio.2020.0013 Current Interpretive Data was last revised on 2024. Non-HDL Cholesterol 75 mg/dL [facility] Comment: Interpretive Data Ages < or [...] last revised on 2018. Chol/HDL ratio 3 [facility] Blood 09/15/2024 6:59 AM VENEER MATCHER 09/15/2024 7:36 AM VENEER MATCHER Narrative [facility] - 09/15/2024 5:06 PM VENEER MATCHER Reflex us Joey Richardson MD LAB BLOOD ORDERABLES Final Result [facility] Department [place] [address] * (ABNORMAL) POCT hemoglobin A1c (09/11/2024 1:56 PM VENEER MATCHER) Hgb A1C, POC 9.2(H) 4.0 - 5.6 % Est Average Gluc POC 217 mg/dL [facility] Comment: The ADA recommends reporting an estimated Average Glucose (eAG) with all Hemoglobin A1c results using the equation derived from a study of 507 normal and diabetic adults. Minority populations were underrepresented and children were not included. (Diabetes Care 31:7041-7371, 2008). The eAG is not equivalent to a fasting glucose. Blood 09/11/2024 1:56 PM VENEER MATCHER 09/11/2024 1:56 PM VENEER MATCHER us Joey Richardson MD POINT OF CARE TEST ORDERAB LES Final Result [facility] Department [place] [address] * COLONOSCOPY (04/10/2020 9:19 AM CDT) Anatomical Region Laterality Modality Other Narrative Procedure Note Doc Navarrete MD - 04/10/2020 9:19 AM CDT ENDOSCOPY LAB Patient Name: Alex Amezquita Procedure Date: 04/10/2020 9:19 AM Date of : 1955 Admit Type: Outpatient Age: 64 Gender: Male Attending MD: Doc Navarrete M.D. Room: [facility] ENDOSCOPY ROOM 05 Note Status: Finalized Procedure: [...] Thescope was passed under direct vision. The [id number] introduced through the anus and advanced to the cecum, identified by appendiceal orifice and ileocecal valve.The colonoscopy was performed without difficulty. Thepatient tolerated the procedure well. The quality of the bowel preparation was evaluated using the BBPS (Caldwell Bowel Preparation Scale) with scores of: Right [...] in the proximal descending colon. The polypwas Paulina classification IIb (flat). Preparations were made for [...] Deshpande RN in the GI office at [phone] for your final pathology results in 7days. - In the unusual situation that you develop abdominal pain, bleeding or other significant problems in thedays following this procedure please call my office at [phone] ([phone]) to speak to my nurses Audrey Deshpande. After hours and evenings please [phone] and speak to the GI fellow production assembly operator. Please tell themthat Dr. Navarrete did your [...] weekends to arrange admission or transfer to [facility]. Attending Participation: I personally performed the entire procedure. Electronically signed by Doc Navarrete MD Doc Navarrete M.D. 04/10/2020 9:48:10 AM Number of Addenda: 0 Note Initiated On: 04/10/2020 9:19 AM Doc Navarrete MD ENDOSCOPY PROCEDUR ES Final Result * PSA diagnostic (05/17/2018 11:02 AM CDT) PSA-Total 2.6 <=5.4 ng/mL [facility] Comment: Interpretive Data AGE SEX REFERENCE INTERVAL 0 minutes-150 years Female None 0 minutes-49 years Male None 50-59 years Male 0-3.9 60-69 years Male 0-5.4 70-79 years Male 0-6.2 80-150 years Male 0-6.2 Current interpretive data last revised 2018. Blood specimen (specimen) 05/17/2018 11:02 AM CDT 05/17/2018 11:26 AM CDT Narrative [facility] - 05/17/2018 11:59 AM CDT Luzma Gutierrez MD LAB BLOOD ORDERABLES Final Re sult [facility] Department [place] [address] * CT Abdomen Pelvis W Contrast (05/17/2018 [...] RECOMMENDATIONS. Electronically signed by: Osmel Morrison M.D. Result [facility] Debbie Woodward [facility] [place] PROCEDURES Final Result from Last 3 Months or Most Recently Relevant to Health Maintenance Insurance MEDICARE ADVANTAGE [place] [id number] Member Subscriber Plan / Payer (Ef fective 2022-Present) Name:Alex Amezquita Relation to Subscriber:Self Name:Alex Amezquita Payer ID:[id number] (NAIC) Type:UHC MEDICARE Address: [place] [id number] [place] [id number] IDPA [facility] MEDICARE ADVANTAGE [facility] MEDICARE ADVANTAGE Advance Directives For more information, please contact: [phone] * Full Code (Latest Code Status on [...] 8:49 PM 04/23/2023 6:27 PM Care Teams Fur Designer Relationship Specialty Start Date End Date Rio Bear MD [address] [place] [address] [place] [address] PCP - General Family Medicine 09/30/23 Reinier Martinez MD PhD [address] [place] [address] Radiation Oncologist Radiation Oncology 06/10/18 Sheridan Yusuf MD [address] [place] [id number] Medical Oncologist/Warehouse Selector Medical Oncology 06/10/18 Olu Martin MD [address] [place] [address] Surgeon Orthopedic Surgery 06/10/18 Olimpia Beavers MD [address] [place] [address] Medical Oncologist/Warehouse Selector Hematology 09/18/20
--- OUTSIDE RECORDS SUMMARY | 2024-12-26 14:42 | XMS_ITS ---
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 He was recommended surgery, was admitted to [facility] on 09/14/24 and underwent Removal of Left [...] which necessitates close follow up. - ID SW discussed resources with patient in clinic today. [...] concerns. Assessment & Plan (09/18/2024 4:14 PM INSPECTOR PRINTED CIRCUIT BOARDS): Mr.Carl Amezquita is a 67 y.o. male [...] He was recommended surgery, was admitted to [facility] on 09/14/24 and underwent Removal of Left [...] 04/15/2023 Assessment & Plan (07/27/2023 12:38 PM INSPECTOR PRINTED CIRCUIT BOARDS): Alex Amezquita is a 67 y.o. male [...] by ID to place PICC line for intermediate manager IV antibiotics - Check CBC w/ diff [...] (03/21/2020): Added automatically from request for surgery [id number] History of colon polyps 01/18/2020 Overview (01/18/2020): Added automatically from request for surgery [id number] Abnormal gastrointestinal PET scan 08/04/2019 Overview (08/04/2019): Added automatically from request for surgery [id number] Polyp of colon 08/04/2019 Overview (08/04/2019): Added automatically from request for surgery [id number] skilled nursing (current) use of opiate analgesic 03/02 Chronic [...] (05/23/2018): Added automatically from request for surgery [id number] Closed fracture of sternum 12/31/2010 Neoplasm related pain High risk medication use Current Treatment and Therapy Plans No current plan information found. Past Treatment and Therapy Plans Radiation Treatments * Course C1 L FEMUR 07/25/2018 - 08/30/2018 Treatment Period Energy Fraction Dose Fractions Total Dose Plans Planned L FEMUR:1 07/27/2018 - 08/30/2018 180 24 / 4,320 L FEMUR 07/25/2018 - 07/25/2018 180 1 / 4,500 Reference Points Delivered FEMUR DPV 07/25/2018 - 08/30/2018 4,500 Lifetime Dose Tracking * Chemical Lifetime Dose Automatic Entry Manual Entr y Fluoro Time 2.27 minutes 2.27 minutes 0 minutes Air kerma at the reference point (Ka,r) 5.81 mGy 5 .81 mGy 0 mGy DLP 2,912 mGycm 2,912 mGycm 0 mGycm
[2024-12-26 15:05] LABS: Basophils Percent Auto 0.4 % (0.2-1.2); Eosinophils Absolute Auto 0.2 K/mm3 (0-0.3); Eosinophils Percent Auto 2.7 % (0-4.4); Hematocrit 39.6 % (42.0-52.0); Hemoglobin 11.8 g/dL (14.0-18.0); Immature Granulocyte Absolute 0.01 K/mm3 (0.00-0.031); Immature Granulocyte Percent A 0.1 % (0-0.5); Lymphocytes Absolute Auto 2.16 K/mm3 (0.9-3.2); Lymphocytes Percent Auto 29.5 % (18.3-44.2); Mean Corpuscular HGB Conc 29.8 g/dl (32-36); Mean Corpuscular Hemoglobin 22.3 pg (26-34); Mean Corpuscular Volume 74.9 fl (80-100); Mean Platelet Volume 9.2 fl (7.4-10.4); Monocytes Absolute Auto 0.6 K/mm3 (0.1-0.6); Monocytes Percent Auto 7.9 % (2.6-8.5); Neutrophils Absolute Auto 4.3 K/mm3 (1.3-6.7); Neutrophils Percent Auto 59.4 % (45.5-73.1); Platelet Count Result 376 k/mm3 (150-375); Red Blood Count 5.29 M/mm3 (4.6-6.20); Red Cell Distribution Width 17.6 % (11.5-14.5); White Blood Count 7.3 K/mm3 (4.5-10.0)
[2024-12-26 15:13] LABS: Platelet Estimate Slightly Increased (Adequate); Schistocytes None Seen
[2024-12-26 15:15] LABS: Anisocytosis 2+; Hypochromasia 1+
[2024-12-26 16:56] LABS: Iron 40 ug/dL (49-181)
[2024-12-26 17:05] LABS: Percent Iron Saturation 11 % (20-50)
[2024-12-26 17:11] LABS: Immunoglobulin A 331 mg/dL (70-400); Immunoglobulin G 2311 mg/dL (700-1600)
[2024-12-26 17:13] LABS: Immunoglobulin M 439 mg/dL (40-230)
[2024-12-26 17:21] LABS: Alanine Aminotransferase 13 U/L (6-50); Albumin Level 4.2 g/dL (3.5-5.1); Alkaline Phosphatase 127 U/L (38-126); Anion Gap 7 mmol/L (4-12); Aspartate Amino Transferase 40 U/L (17-59); Bilirubin,Total 0.4 mg/dL (0.2-1.3); Blood Urea Nitrogen 20 mg/dL (9-20); Calcium 9.2 mg/dL (8.4-10.2); Carbon Dioxide 31 mmol/L (22-30); Chloride 100 mmol/L (98-107); Estimated Glomerular Filt Rate > 60; Glucose 140 mg/dL (65-110); Lactate Dehydrogenase 144 U/L (120-246); Potassium 4.3 mmol/L (3.4-5.0); Sodium 138 mmol/L (137-145)
[2024-12-26 18:09] LABS: Folic Acid 5.3 ng/mL (2.76->20)
[2024-12-28 12:13] LABS: Protein, Total 7.9 g/dL (6.1-8.1)
[2024-12-28 13:40] LABS: Kappa\\Lambda Light Chains 2.25 (0.26-1.65); Lambda Light Chain 34.3 mg/L (5.7-26.3)
[2024-12-28 19:54] LABS: Albumin 3.7 g/dL (3.8-4.8); Alpha 1 Globulin 0.4 g/dL (0.2-0.3); Alpha 2 Globulin 0.7 g/dL (0.5-0.9); Beta 1 Globulin 0.5 g/dL (0.4-0.6); Gamma Globulin 2.2 g/dL (0.8-1.7)
[2024-12-29 11:58] LABS: Soluble Transferrin Receptor 1.66 mg/L (0.76-1.76)
[2024-12-30 02:38] LABS: Methylmalonic Acid 270 nmol/L (69-390)
== END 2024-12-26 14:38 | disposition home or self-care (01) ==
LOC: ANHLAB 14:39
PROVIDERS: PCP Emergency Medicine; Visit Provider Internal Medicine Hematology & Oncology
DX: C90.31 Solitary plasmacytoma in remission (principal)
CPT/HCPCS: 36415; 80053; 82607; 82728; 82746; 82784; 83540; 83550; 83615; 83883; 83921; 84155; 84165; 84238; 85025